=== PATIENT | female | born 1960 | race Caucasian/White ===

== ENCOUNTER 2018-11-23 14:31 | Observation (INO) | payer MEDICAID, SELFPAY ==
[2018-11-23] VITALS (8 sets, daily range): BP systolic 115–139; BP diastolic 65–83; PULSE 70–89; RESP 16–18; TEMP 36.4–36.8; O2SAT 96–98; BMI 24.3
--- NOTE | 2018-11-23 14:56 | RAD_ITS ---
STUDY: X-RAY CHEST REASON FOR EXAM: Female, 58 years old. Chest pain TECHNIQUE: Frontal view of the chest COMPARISON: 03/05/2016 FINDINGS: There are stable calcified granulomata are noted in the lungs. The lungs are otherwise clear. There are no pleural effusions. There is no pneumothorax. The heart is normal in size. The visualized osseous structures are within normal limits. RAD/Chest 1 View (Portable) IMPRESSION: No acute thoracic pathology. Electronically Signed: Eleuterio Rodney, at 15:25 EDT Tel , Service support ,
--- NOTE | 2018-11-23 14:56 | EKG12_ITS ---
Test Reason : CP Blood Pressure : / mmHG Vent. Rate : 082 BPM Atrial Rate : 082 BPM P-R Int : 152 ms QRS Dur : 076 ms QT Int : 378 ms P-R-T Axes : 058 023 033 degrees QTc Int : 441 ms Normal sinus rhythm Normal ECG Confirmed by JESÚS CHOW, MANUEL ([id number]), proposal editor SERGIO BERUMEN ([id number]) on 11/25/2018 12:24:48 PM Referred By: GONZALO/WILFRED Confirmed By:MANUEL ESPINOSA MD
--- NOTE | 2018-11-23 15:05 | ED.VISSUMM ---
- ER Visit Summary Date of Service: 11/23/18 Chief Complaint: Chest pain History of Present Illness: The patient is a 58 F with chest pain. This has been intermittent over the past 2 weeks. Nothing seems to bring it on or make it worse. It feels like a heaviness. It is located under her left breast and radiates to her left shoulder. She felt lightheaded today. Patient denies any history of this. She does have a history of high cholesterol and smoking. She has a family history of GA and peripheral arterial disease with stents. She never had any cardiac testing including stress testing. Physical Examination: Afebrile and vital signs unremarkable. Patient alert and oriented. No acute distress. Heart regular rate and rhythm. Lungs clear. Abdomen soft. Extremities nontender. Skin normal. Test Results: EKG shows sinus rhythm rate 82. No sign of acute ischemia or infarction pattern. Chest x-ray and blood work are pending. Emergency Department Course and Treatment: Patient presents with pleuritic chest pain. Low risk for ACS and PE. EKG unremarkable. She was placed on a monitor. Treated with aspirin. Blood work and x-ray pending. X-ray showed nothing acute. CBC, metabolic panel, troponin, d-dimer all normal. On reevaluation, patient is stable. She has a heart score of 4. I am recommending observation and will contact the hospitalist. Treatment Plan: As above Disposition: Observation to PCU Impression: 1. Chest pain This note was generated with [employer] dictation software. It may contain incorrect words, spelling, and punctuation that were not noted in review of the chart prior to signing ED Disposition - Plan for ED Patient: Referrals: Angel Saab III, MD [Primary Care Provider] -
[2018-11-23 15:06] LABS: Absolute Lymphocyte Count 2.06 X10^3/uL (0.83-4.51); Absolute Neutrophil Count 2.8 X10^3/uL (2.0-7.7); Basophil# 0.02 X10^3/uL; Basophil% 0.4 % (0-1); Eosinophil# 0.11 X10^3/uL; Hematocrit 39.1 % (37-47); Hemoglobin 13.3 g/dL (12.0-15.0); Lymphocyte # 2.06 X10^3/ul (4.0); Mean Corpuscular Hgb 31.4 pg (27.0-32.0); Mean Corpuscular Volume 92.4 fL (81-99); Mean Platelet Vol. 9.5 fl (6.2-12.0); Monocyte% 10.8 % (0-10); NRBC Flagged by Analyzer 0 % (0-5); Neutrophil # 2.77 X10^3/uL (2.7-7.7); Neutrophil % 49.6 % (47-70); Platelet Count 188 K/mm3 (150-450); RBC Distribution Width CV 11.4 % (11.6-14.6); RBC Distribution Width SD 38.6 fl (35.1-43.9); Red Blood Count 4.23 M/mm3 (4.2-5.4); White Blood Count 5.6 K/mm3 (4.4-11.0)
[2018-11-23] MEDS: Aspirin 81 MG TAB.CHEW 324 MG PO (15:08)
[2018-11-23 15:24] LABS: Anion Gap 5 (5-15); BUN 12 mg/dL (7-18); BUN/Creat Ratio 13.5 RATIO (10-20); Chloride 106 mmol/L (98-107); Creatinine, Serum 0.89 mg/dL (0.55-1.02); EST Glomerular Filtration Rate 69 mL/min (>60); Est Glom Filt Rate - Afr Amer 84 mL/min (>60); Estimated Creatinine Clearance 62.93 ml/min; Glucose 99 mg/dL (74-106); Potassium 3.5 mmol/L (3.5-5.1); Sodium Level 140 mmol/L (136-145)
--- NOTE | 2018-11-23 15:46 | HP.PCM_ITS ---
Problem List (1) Chest pain Status: Acute Qualifiers: Chest pain type: unspecified Qualified Code(s): R07.9 - Chest pain, unspecified (2) Anxiety and depression Status: Chronic (3) GERD (gastroesophageal reflux disease) Status: Chronic Qualifiers: Esophagitis presence: esophagitis presence not specified Qualified Code(s): K21.9 - Gastro-esophageal reflux disease without esophagitis (4) Hiatal hernia Status: Chronic History of Present Illness Date of Admission: 11/23/18 Chief Complaint: Chest pain - 2 weeks The patient is a 58 year old F with past medical history of anxiety/depression, hiatal hernia/GERD who comes in with a 2-week history of chest pain. She describes the chest pain as intermittent, stabbing, starts from the left side. She denied any nausea or vomiting or palpitations or leg swelling or orthopnea or PND. Her pain is worse with exertion and relieved at rest. But today it got worse even at rest, and had persistent lightheadedness and that made her to come to the ED. Vitals in the ED showed temperature of 98.2F, heart rate 89, blood pressure 139/83, respiratory rate was 16, SPO2 was 97% on room air. Her admitting blood work was unremarkable. Troponins were negative. HbA1c was 5.2. EKG shows normal sinus rhythm with no ST-T changes. Her admitting chest x-ray showed no acute cardiopulmonary process. 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 Lives: Spouse/ Significant Other Smoking Status: Current every day smoker Tobacco Use: Cigarettes - less than 1/2 pack every 3 days Alcohol: None Drugs: None - *Family History Maternal History Items: Stroke Paternal History Items: Heart Disease - of NH Sibling History Items: - - PAD in legs and carotids Review of Systems Constitutional: Denies: Anorexia, Chills, Fever, Malaise, Weakness, Weight Change Eyes: Denies: Blurred vision, Cataracts, Conjunctivae Inflammation, Double vision, Pain, Redness, Vision Change HEENT: Denies: Difficulty Hearing, Difficulty Swallowing, Head Aches, Hearing Changes, Sinus Congestion, Sinus Drainage, Sore Throat Cardiovascular: Reports: Chest Pain, Light Headedness. Denies: Claudication, Orthopnea, Palpitations Respiratory: Denies: Cough, Shortness of breath at rest, Shortness of breath upon exertion, Sputum production Gastrointestinal: Denies: Abdominal Pain, Hematemesis, Hematochezia, Nausea, Vomiting Genitourinary: Denies: Dysuria Musculoskeletal: Denies: Joint Pain, Joint stiffness, Joint swelling, Joint Tenderness Skin: Denies: Rash, Wounds Neurological: Denies: Difficulty swallowing, Focal weakness, Numbness, Tingling Psychiatric: Denies: Anxiety, Depression, Homicidal Ideations, Suicidal Ideations Endocrine: Denies: Hx of Irradiation Hematologic/ Lymphatic: Denies: Easy Bruising, Easy Bleeding VTE Information - Inpt Only VTE Present on Admission: No VTE Pharm Prophylaxis ordered?: Yes Patient Problems: Active and Suspected Problems Chest pain (Acute) - Physical Exam General: Alert, Oriented x3, Cooperative, No apparent distress HEENT: Atraumatic, PERRLA, EOMI, Normocephalic Oral: Dry Mucosa Neck: Supple, No JVD, Negative Carotid Bruits Lungs: Clear to auscultation, Normal air movement Cardiovascular: Regular rate, Regular Rhythm, Normal S1, Normal S2, No murmurs Abdomen: Bowel Sounds Present, Soft, Non Tender, Non-Distended, No Hepato- splenomegaly Extremities: No edema Skin: No rashes, No breakdown Musculoskeletal: No Tenderness to Palpation of Joints or Extremities Lymphatic: No Cervical, Supraclavicular, or Inguinal Adenopathy Neurological: Cranial nerves II-XII grossly intact, Neuro grossly intact Psych/Mental Status: Normal Affect, Appropriate Vital Signs Temp Pulse Resp BP Pulse Ox 98.2 F 89 16 139/83 H 97 11/23/18 14:31 11/23/18 14:31 11/23/18 14:31 11/23/18 14:31 11/23/18 14:31 Oxygen Delivery Method Room Air Weight: 68.4 kg Body Mass Index (BMI) 24.3 Laboratory Tests Past 24 Hrs 11/23/18 11/23/18 11/23/18 15:00 15:00 15:00 WBC 5.6 RBC 4.23 Hgb 13.3 Hct 39.1 MCV 92.4 MCH 31.4 MCHC 34.0 RDW Std Deviation 38.6 RDW Coeff of Glenys 11.4 L Plt Count 188 MPV 9.5 Immature Gran % (Auto) 0.200 Neut % (Auto) 49.6 Lymph % (Auto) 37.0 [place] % (Auto) 10.8 H Eos % (Auto) 2.0 Baso % (Auto) 0.4 Absolute Neuts (auto) 2.8 Absolute Lymphs (auto) 2.06 Nucleated RBC % 0 D-Dimer Quant (PE/DVT) 0.30 Sodium 140 Potassium 3.5 Chloride 106 Carbon Dioxide 29.0 Anion Gap 5 BUN 12 Creatinine 0.89 Estim Creat Clear Calc 62.93 Est GFR (MDRD) Af Amer 84 Est GFR (MDRD) Non-Af 69 BUN/Creatinine Ratio 13.5 Glucose 99 Calcium 9.0 Troponin I < 0.015 Assessment/Plan All Active Problems Chest pain (Acute) 58 year old F with past medical history of anxiety/depression, hiatal hernia/GERD who comes in with a 2-week history of chest pain. 1. Chest pain, atypical, positive family history of atherosclerotic cardiovascular events - NH/PAD?carotid stenosis Patient is a current smoker also EKG no acute ST-T changes, stable vitals, troponins x1 is negative Plan: Admit to PCU, monitor on telemetry, vital signs per protocol, trend troponins, lipid profile in a.m., Stress echo in a.m. 2. Anxiety/depression, continue on Celexa 3. Hiatal hernia/GERD, on PPI 4. DVT PPx- early ambulation recommended. Code Visit OBSV E&M: 56177 Initial observation care L2
[2018-11-23 16:50] LABS: Hemoglobin A1c 5.2 % (4.2-6.3)
--- NOTE | 2018-11-23 16:51 | EKG12_ITS ---
Test Reason : CP ADMISSION Blood Pressure : / mmHG Vent. Rate : 067 BPM Atrial Rate : 067 BPM P-R Int : 152 ms QRS Dur : 076 ms QT Int : 404 ms P-R-T Axes : 053 025 027 degrees QTc Int : 426 ms Normal sinus rhythm Normal ECG Confirmed by FATOUMATA CHOW, JAXSON ([id number]), editor map SERGIO BERUMEN ([id number]) on 12/01/2018 10:50:43 AM Referred By: LUBA Confirmed By:WADE HAM MD
[2018-11-24 02:55] VITALS: BP 118/77; PULSE 72; RESP 16; TEMP 36.6; O2SAT 97
[2018-11-24 04:00] VITALS: PULSE 73
[2018-11-24 05:06] VITALS: BP 121/80; PULSE 80; RESP 16; TEMP 36.7; O2SAT 98
[2018-11-24] MEDS: Aspirin E.C. 81 MG Tablet PO (05:12)
[2018-11-24] MEDS: 0.9% NaCl Peripheral Flush Adult/Peds IV (05:12)
[2018-11-24 05:44] LABS: Absolute Lymphocyte Count 1.93 X10^3/uL (0.83-4.51); Absolute Neutrophil Count 1.9 X10^3/uL (2.0-7.7); Basophil# 0.03 X10^3/uL; Basophil% 0.7 % (0-1); Eosinophil# 0.13 X10^3/uL; Eosinophils% 2.9 % (0-5); Hematocrit 40.7 % (37-47); Hemoglobin 13.5 g/dL (12.0-15.0); Lymphocyte # 1.93 X10^3/ul (4.0); Lymphocyte % 43.1 % (19-41); Mean Corp Hgb Conc 33.2 g/dL (32-36); Mean Corpuscular Volume 93.6 fL (81-99); Mean Platelet Vol. 9.8 fl (6.2-12.0); Monocyte# 0.48 X10^3/uL; Monocyte% 10.7 % (0-10); NRBC Flagged by Analyzer 0 % (0-5); Neutrophil # 1.91 X10^3/uL (2.7-7.7); Neutrophil % 42.6 % (47-70); Platelet Count 184 K/mm3 (150-450); RBC Distribution Width CV 11.5 % (11.6-14.6); RBC Distribution Width SD 39.7 fl (35.1-43.9); Red Blood Count 4.35 M/mm3 (4.2-5.4); White Blood Count 4.5 K/mm3 (4.4-11.0)
--- NOTE | 2018-11-24 05:55 | EKG12_ITS ---
Test Reason : AM EKG Blood Pressure : / mmHG Vent. Rate : 071 BPM Atrial Rate : 071 BPM P-R Int : 146 ms QRS Dur : 074 ms QT Int : 398 ms P-R-T Axes : 063 033 040 degrees QTc Int : 432 ms Normal sinus rhythm Normal ECG When compared with ECG of 23-NOV-2018 16:55, MANUAL COMPARISON REQUIRED, DATA IS UNCONFIRMED Confirmed by FATOUMATA CHOW, JAXSON ([id number]), newspaper or periodical editor SERGIO BERUMEN ([id number]) on 12/01/2018 10:51:24 AM Referred By: DR VERDUZCO Confirmed By:WADE HAM MD
[2018-11-24 06:09] LABS: Anion Gap 5 (5-15); BUN 15 mg/dL (7-18); BUN/Creat Ratio 18.7 RATIO (10-20); Calcium,Total 8.7 mg/dL (8.5-10.1); Chloride 107 mmol/L (98-107); Cholesterol 222 mg/dL (200); EST Glomerular Filtration Rate 77 mL/min (>60); Est Glom Filt Rate - Afr Amer 94 mL/min (>60); Estimated Creatinine Clearance 70.01 ml/min; Glucose 107 mg/dL (74-106); High Density Lipoprotein 49 mg/dL; Potassium 4.3 mmol/L (3.5-5.1); Sodium Level 140 mmol/L (136-145); Triglycerides 106 mg/dL; Very Low Density Lipoprotein 21 mg/dL (5-40)
[2018-11-24 07:30] VITALS: PULSE 81
--- NOTE | 2018-11-24 07:31 | NURSING ---
pt leaving unit for stress echo.
--- NOTE | 2018-11-24 08:00 | STEWCON_ITS ---
Reason For Study: CHEST PAIN Stress Results Protocol: Stress Echocardiogram Maximum Predicted HR: 160 bpm Target HR: 136 bpm % Maximum Predicted HR: 98 % DurationHeart Rate Stage (mm:ss) (bpm) BP Comment BASELINE 76 120/782CC DILUTED DEFINITY USED KEO PROTOCOL- STAGE 1 3:00 109 134/80NO SX KEO PROTOCOL- STAGE 2 3:00 126 138/82NO SX KEO PROTOCOL- STAGE 3 3:00 157 140/80SL SOB, SL FATIGUE RECOVERY 86 124/74 Stress Duration: 9:00 mm:ss Maximum Stress HR: 157 bpm METS: 10 Baseline Echocardiogram Findings Stress Echo Wall motion Data Resting WM Intermediate WM Stress WM Resting Wall Motion Wall Motion Stress All segments Normal. All segments Hyperkinetic. Ejection Fraction 60 %. Ejection Fraction 75 %. Stress Results Heart rate response: Appropriate Blood pressure response: Normal resting BP-appropriate response Arrhythmias: None Functional capacity: Good Stopped secondary to: Dyspnea/fatigue. EKG Data ECG Baseline: NSR. ECG Stress: No Obvioius ECG Changes. Symptoms with Stress No complaint of chest discomfort during exercise or recovery. Interpretation Summary Negative (Adequate) Stress Echocardiogram Ordering Physician: Darian^^^ Referring Physician: AURORA Saab M.D. Performed By: Ivana Cummings RDCS
[2018-11-24] MEDS: Pantoprazole Sodium 20 MG Tablet PO (08:48)
[2018-11-24] MEDS: Citalopram 20 MG Tablet PO (08:49)
[2018-11-24 10:00] VITALS: BP 117/69; PULSE 80; RESP 14; TEMP 36.7; O2SAT 97
--- NOTE | 2018-11-24 10:47 | PCM.DC ---
- Discharge Diagnoses Current Active Problems: Current Active and Chronic Problems Chest pain (Acute) Anxiety and depression (Chronic) GERD (gastroesophageal reflux disease) (Chronic) Hiatal hernia (Chronic) Reason(s) for Visit for Discharge Instructions: Chest pain You will use the following diet at home:: Cardiac Your food should be the consistency of: Regular Your liquids should be the consistency of: Regular/Thin Discharge Activity: Return to Normal Activity Additional Instructions: You are advised to quit smoking. Continue to follow a low fat, low salt diet. Continue to remain active. Follow-up with your primary care doctor within 1-2 weeks. You will need repeat cholesterol testing in 4-6 weeks. Allergies/Adverse Reactions: Allergies Sulfa (Sulfonamide Antibiotics) Adverse Reaction (Verified 11/23/18 14:33) Nausea/Vom/Diarrhea Medications to take at Discharge Citalopram [Celexa] 20 mg PO DAILY 03/05/16 Omeprazole 20 mg PO DAILY 11/23/18 Atorvastatin Calcium 40 mg PO QHS 30 Days #30 tab 11/24/18 The following prescriptions were given: Atorvastatin Calcium 40 mg PO QHS 30 Days #30 tab Transmission Status: Pending to [id number] Primary Care Physician: Angel Saab III, MD [Primary Care Provider] - Please follow up with your Primary Care Physician in: within 1-2 weeks Test Results: Test results from this visit will be discussed in further detail at your follow-up appointment, if applicable. Proposed Discharge Date: 11/24/18
--- NOTE | 2018-11-24 10:49 | DS.PCM_ITS ---
Discharge Date and Diagnosis Date of Admission: 11/23/18 Date of Discharge: 11/24/18 - Primary Discharge Diagnosis Active and Suspected Problems Chest pain (Acute), atypical Hyperlipidemia - Secondary Discharge Diagnosis Chronic Problems Anxiety and depression (Chronic) GERD (gastroesophageal reflux disease) (Chronic) Hiatal hernia (Chronic) Hospital Course and Treatment Imaging Results: 11/24/18 08:00 Stress Test Echo W/Contrast [ECHO] Routine Clinical Impression(s) from Imaging Studies Chest X-Ray 11/23/18 14:56 IMPRESSION: No acute thoracic pathology. Electronically Signed: Eleuterio Rodney, at 15:25 EDT Tel , Service support , None Operations: None Procedures: Stress test - Stress ECHO Summary of Care Provided: 58 year old F with past medical history of anxiety/depression, hiatal hernia/GERD who comes in with a 2-week history of chest pain. Her chest discomfort was described as occurring at different times. This was associated with some lightheadedness. Admitting EKG showed no acute ST-T changes. She was admitted to telemetry floor. No acute events overnight. Troponins were cycled and were negative. She underwent stress echo that was unremarkable. Her lipid profile was elevated and she was started on atorvastatin. Follow-up with your primary care doctor in 1 to 2 weeks. She will get repeat lipid profile testing done in 4 to 6 weeks. Also advised to quit smoking. Subjective: The day of discharge, patient was seen and examined. Denied any new complaints. She feels improved. Objective: Physical Exam General: Alert, Oriented x3, Cooperative, No apparent distress HEENT: Atraumatic, PERRLA, EOMI, Normocephalic Oral: Dry Mucosa Neck: Supple, No JVD, Negative Carotid Bruits Lungs: Clear to auscultation, Normal air movement Cardiovascular: Regular rate, Regular Rhythm, Normal S1, Normal S2, No murmurs Abdomen: Bowel Sounds Present, Soft, Non Tender, Non-Distended, No Hepato- splenomegaly Extremities: No edema Skin: No rashes, No breakdown Musculoskeletal: No Tenderness to Palpation of Joints or Extremities Lymphatic: No Cervical, Supraclavicular, or Inguinal Adenopathy Neurological: Cranial nerves II-XII grossly intact, Neuro grossly intact Psych/Mental Status: Normal Affect, Appropriate - Physical Exam Vital Signs Temp Pulse Resp BP Pulse Ox 98.0 F 80 14 117/69 97 11/24/18 10:00 11/24/18 10:00 11/24/18 10:00 11/24/18 10:00 11/24/18 10:00 Oxygen Delivery Method Room Air Weight: 68.5 kg Body Mass Index (BMI) 24.3 Intake and Output for Last 24 Hours 11/22/18 11/23/18 11/24/18 23:59 23:59 23:59 Intake Total 324 / 324 Balance 324 / 324 Laboratory Tests Past 24 Hrs 11/23/18 11/23/18 11/23/18 15:00 15:00 15:00 WBC 5.6 RBC 4.23 Hgb 13.3 Hct 39.1 MCV 92.4 MCH 31.4 MCHC 34.0 RDW Std Deviation 38.6 RDW Coeff of Glenys 11.4 L Plt Count 188 MPV 9.5 Immature Gran % (Auto) 0.200 Neut % (Auto) 49.6 Lymph % (Auto) 37.0 [place] % (Auto) 10.8 H Eos % (Auto) 2.0 Baso % (Auto) 0.4 Absolute Neuts (auto) 2.8 Absolute Lymphs (auto) 2.06 Nucleated RBC % 0 D-Dimer Quant (PE/DVT) 0.30 Sodium 140 Potassium 3.5 Chloride 106 Carbon Dioxide 29.0 Anion Gap 5 BUN 12 Creatinine 0.89 Estim Creat Clear Calc 62.93 Est GFR (MDRD) Af Amer 84 Est GFR (MDRD) Non-Af 69 BUN/Creatinine Ratio 13.5 Glucose 99 Hemoglobin A1c Calcium 9.0 Troponin I < 0.015 Triglycerides Cholesterol LDL Cholesterol VLDL Cholesterol HDL Cholesterol 11/23/18 11/23/18 11/23/18 15:00 17:43 20:44 WBC RBC Hgb Hct MCV MCH MCHC RDW Std Deviation RDW Coeff of Glenys Plt Count MPV Immature Gran % (Auto) Neut % (Auto) Lymph % (Auto) [place] % (Auto) Eos % (Auto) Baso % (Auto) Absolute Neuts (auto) Absolute Lymphs (auto) Nucleated RBC % D-Dimer Quant (PE/DVT) Sodium Potassium Chloride Carbon Dioxide Anion Gap BUN Creatinine Estim Creat Clear Calc Est GFR (MDRD) Af Amer Est GFR (MDRD) Non-Af BUN/Creatinine Ratio Glucose Hemoglobin A1c 5.2 Calcium Troponin I < 0.015 < 0.015 Triglycerides Cholesterol LDL Cholesterol VLDL Cholesterol HDL Cholesterol 11/24/18 11/24/18 05:20 05:20 WBC 4.5 RBC 4.35 Hgb 13.5 Hct 40.7 MCV 93.6 MCH 31.0 MCHC 33.2 RDW Std Deviation 39.7 RDW Coeff of Glenys 11.5 L Plt Count 184 MPV 9.8 Immature Gran % (Auto) 0.000 Neut % (Auto) 42.6 L Lymph % (Auto) 43.1 H [place] % (Auto) 10.7 H Eos % (Auto) 2.9 Baso % (Auto) 0.7 Absolute Neuts (auto) 1.9 L Absolute Lymphs (auto) 1.93 Nucleated RBC % 0 D-Dimer Quant (PE/DVT) Sodium 140 Potassium 4.3 Chloride 107 Carbon Dioxide 28.0 Anion Gap 5 BUN 15 Creatinine 0.80 Estim Creat Clear Calc 70.01 Est GFR (MDRD) Af Amer 94 Est GFR (MDRD) Non-Af 77 BUN/Creatinine Ratio 18.7 Glucose 107 H Hemoglobin A1c Calcium 8.7 Troponin I Triglycerides 106 Cholesterol 222 H LDL Cholesterol 152 H VLDL Cholesterol 21 HDL Cholesterol 49 Discharge Diet: Low fat/ Low Cholesterol, 2000 mg Sodium Diet Discharge Activity: Return to Normal Activity Home Medications: Medications to take at Discharge Citalopram [Celexa] 20 mg PO DAILY 03/05/16 Omeprazole 20 mg PO DAILY 11/23/18 Atorvastatin Calcium 40 mg PO QHS 30 Days #30 tab 11/24/18 Following Prescrptions Were Given to Patient: Atorvastatin Calcium 40 mg PO QHS 30 Days #30 tab Transmission Status: Received by [id number] Primary Care Physician: Angel Saab III, MD [Primary Care Provider] - Please follow up with your Primary Care Physician in: within 1-2 weeks Disposition: Home Minutes spent on discharge:: 40 Patient Condition:: Stable Medical Necessity - Tobacco Use Smoking Status: Current every day smoker Tobacco Use: Cigarettes - less than 1/2 pack every 3 days Meaningful Use Info Meaningful Use Diagnoses (Choose all that apply): None applicable Code Visit OBSV E&M: 49143 Observation care discharge
== END 2018-11-24 10:41 | disposition home or self-care (01) ==
LOC: ED 15:31 → PCU 16:05
PROVIDERS: Admitting Provider Internal Medicine; Emergency Provider Emergency Medicine; Family Provider Family Medicine; PCP Family Medicine; Visit Provider Internal Medicine
DX: R07.89 Other chest pain (principal); R42 Dizziness and giddiness; F41.9 Anxiety disorder, unspecified; F32.9 Major depressive disorder, single episode, unspecified; K21.9 Gastro-esophageal reflux disease without esophagitis; E78.5 Hyperlipidemia, unspecified; K44.9 Diaphragmatic hernia without obstruction or gangrene; F17.210 Nicotine dependence, cigarettes, uncomplicated; Z79.899 Other long term (current) drug therapy; Z82.49 Family history of ischemic heart disease and other diseases of the circulatory system
CPT/HCPCS: 36415; 71045; 80048; 80061; 83036; 84484; 85025; 85379; 93005; 93017; 93350; 99218; 99285; 99406; Q9957; A4216; C8928; G0378

== ENCOUNTER 2019-03-30 13:57 | Inpatient (IN) | payer MEDICAID, SELFPAY ==
[2018-11-23 16:26] VITALS: BMI 24.3
[2019-03-30] VITALS (7 sets, daily range): BP systolic 109–153; BP diastolic 62–99; PULSE 90–122; RESP 18; TEMP 36.9–37.8; O2SAT 92–95; BMI 25.4; BMI 25.3
--- NOTE | 2019-03-30 14:15 | RAD_ITS ---
STUDY: X-RAY CHEST REASON FOR EXAM: Female, 58 years old. Cough. Fever. TECHNIQUE: Frontal view of the chest COMPARISON: 11/23/2018 FINDINGS: There is airspace opacity in the right lower lobe which is consistent with an infiltrate. The lungs are otherwise clear. There are no pleural effusions. There is no pneumothorax. The heart is normal in size. The visualized osseous structures are within normal limits. RAD/Chest PA and Lateral IMPRESSION: Right lower lobe infiltrate. Electronically Signed: Eleuterio Rodney, at 16:31 EST Tel , Service support ,
[2019-03-30] MEDS: 0.9% Normal Saline 1,000 ML 1000 ML IV (15:08)
[2019-03-30] MEDS: Ondansetron 4 MG/2 ML Vial IV (15:08)
[2019-03-30] MEDS: Ketorolac 15 MG/ML Vial IV (15:08)
[2019-03-30 15:22] LABS: Absolute Lymphocyte Count 0.45 X10^3/uL (0.83-4.51); Absolute Neutrophil Count 5.2 X10^3/uL (2.0-7.7); Eosinophils% 1.6 % (0-5); Hematocrit 40.1 % (37-47); Hemoglobin 13.5 g/dL (12.0-15.0); Lymphocyte # 0.45 X10^3/ul (4.0); Lymphocyte % 7.4 % (19-41); Mean Corp Hgb Conc 33.7 g/dL (32-36); Mean Corpuscular Hgb 30.2 pg (27.0-32.0); Mean Corpuscular Volume 89.7 fL (81-99); Mean Platelet Vol. 9.8 fl (6.2-12.0); Monocyte# 0.29 X10^3/uL; Monocyte% 4.8 % (0-10); NRBC Flagged by Analyzer 0 % (0-5); Neutrophil # 5.24 X10^3/uL (2.7-7.7); Neutrophil % 85.9 % (47-70); POSITIVE DIFFERENTIAL YES; POSITIVE MORPHOLOGY YES; Platelet Count 105 K/mm3 (150-450); RBC Distribution Width CV 11.7 % (11.6-14.6); RBC Distribution Width SD 38.5 fl (35.1-43.9); Red Blood Count 4.47 M/mm3 (4.2-5.4); White Blood Count 6.1 K/mm3 (4.4-11.0)
[2019-03-30 15:25] LABS: Differential Indicated SCAN CRITERIA MET
[2019-03-30 15:41] LABS: Anion Gap 8 (5-15); BUN 11 mg/dL (7-18); BUN/Creat Ratio 12.9 RATIO (10-20); Calcium,Total 8.8 mg/dL (8.5-10.1); Chloride 105 mmol/L (98-107); Creatinine, Serum 0.85 mg/dL (0.55-1.02); EST Glomerular Filtration Rate 72 mL/min (>60); Est Glom Filt Rate - Afr Amer 87 mL/min (>60); Estimated Creatinine Clearance 63.33 ml/min; Glucose 110 mg/dL (74-106); Potassium 3.5 mmol/L (3.5-5.1); Sodium Level 137 mmol/L (136-145)
--- NOTE | 2019-03-30 15:47 | NURSING ---
+ influenza B reported to Dr. Goncalves
[2019-03-30 15:52] LABS: Differential Comment SCANNED
--- NOTE | 2019-03-30 16:21 | ED.VISSUMM ---
- ER Visit Summary Date of Service: 03/30/19 Chief Complaint: [Chills, fever, cough] History of Present Illness: The patient is a 58 F [presents to the emergency department 6-day history of cough and fever and feeling short of breath. Patient's had had vomiting that started today. Patient recently diagnosed with an abscessed tooth and started on amoxicillin today which she attempted to take for the first time and then vomited. Patient has no energy and feels fatigued. 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 She has history of cholesterol.] Physical Examination: [HEENT-PERRLA, EOMI. Cranial nerves II through XII grossly intact. TMs clear. Mucous membranes moist. No adenopathy. Cardiovascular-regular and tachycardic. No murmurs auscultated. Lungs-clear to auscultation, chest wall stable without crepitus or subcu emphysema Abdomen-normoactive bowel sounds, soft, nontender, no rebound or rigidity, no peritoneal signs. Extremities-intact ?4, normal range of motion, normal pulses, atraumatic] Test Results: [CBC with differential showing a 6.1, hemoglobin 13.5, hematocrit 40, plates 105. Chemistries unremarkable. Influenza screen was positive for influenza B. Chest x-ray on my interpretation shows a right lower lobe infiltrate.] Emergency Department Course and Treatment: [Patient written for a liter normal saline fluid bolus. Patient given Toradol 50 mg IV. Patient started on Rocephin and Zithromax.] Treatment Plan: [Admit] Disposition: [Admit] Impression: [Influenza Pneumonia Sepsis] This note was generated with [employer] dictation software. It may contain incorrect words, spelling, and punctuation that were not noted in review of the chart prior to signing ED Disposition - Plan for ED Patient: Referrals: Angel Saab III, MD [Primary Care Provider] -
--- NOTE | 2019-03-30 16:43 | PCM.HP.STD ---
<Sylwia Raza - Last Filed: 03/30/19 16:54> Problem List (1) Chest pain Status: Resolved (2) Anxiety and depression Status: Chronic (3) GERD (gastroesophageal reflux disease) Status: Chronic (4) Hiatal hernia Status: Chronic History of Present Illness Date of Admission: 03/30/19 Chief Complaint: Cough, fever, chills, nausea/vomiting The patient is a 58 year old F who presents emergency room due to general illness with shortness of breath, cough, fever, chills, nausea and vomiting. Patient reports this is been ongoing for 1 week. She reports her grandchildren were diagnosed with influenza B last week. She was seen the dentist today and started on amoxicillin for dental abscess however she has not been able to keep down medication due to nausea and vomiting. She was found to be positive for influenza B in the emergency room. Patient states she is scared to go home because she lives alone and is having trouble breathing. Her other past medical history includes anxiety, depression, GERD, hyperlipidemia. 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 Denies: Sputum production, Wheezing Gastrointestinal: Reports: Nausea, Vomiting. Denies: Abdominal Pain, Constipation, Diarrhea Genitourinary: Denies: Dysuria Musculoskeletal: Denies: Joint Pain, Joint Tenderness Skin: Denies: Rash, Wounds Neurological: Denies: Numbness, Tingling, Focal weakness Psychiatric: Reports: Anxiety, Depression Hematologic/ Lymphatic: Denies: Easy Bruising, Easy Bleeding VTE Information - Inpt Only VTE Present on Admission: No VTE Mechan Device Prophylaxis: None VTE Pharm Prophylaxis ordered?: No Reason prophylaxis not ordered:: Treatment Not Indicated - Physical Exam Vitals/I&O's: Vital Signs Temp Pulse Resp BP Pulse Ox 99.7 F H 122 H 18 153/99 H 95 03/30/19 13:57 03/30/19 13:57 03/30/19 13:57 03/30/19 13:57 03/30/19 13:57 Oxygen Delivery Method Room Air Weight: 152 lb 8.958 oz Body Mass Index (BMI) 25.4 General: Alert, Oriented x3, Cooperative HEENT: Atraumatic, PERRLA, EOMI, Normocephalic Oral: Dry Mucosa Neck: Supple, No JVD, Negative Carotid Bruits Lungs: Clear to auscultation, Diminished Cardiovascular: Regular Rhythm, Normal S1, Normal S2, No murmurs, Tachycardic Abdomen: Bowel Sounds Present, Soft, Non Tender, Non-Distended Extremities: No clubbing, No cyanosis, No edema, Capillary Refill Less than 3 Seconds Skin: No rashes, No breakdown Musculoskeletal: No Tenderness to Palpation of Joints or Extremities Neurological: Cranial nerves II-XII grossly intact, Neuro grossly intact Psych/Mental Status: Normal Affect, Appropriate Microbiology Past 72 Hours 03/30/19 15:11 Mucosa - Nasopharyngeal Influenza Types A,B Direct FA (PARISH) - Final Influenzae B Laboratory Results 03/30/19 15:00: WBC 6.1, RBC 4.47, Hgb 13.5, Hct 40.1, MCV 89.7, MCH 30.2, MCHC 33.7, RDW Std Deviation 38.5, RDW Coeff of Glen[place] 11.7, Plt Count 105 L, MPV 9.8, Immature Gran % (Auto) 0.300, Neut % (Auto) 85.9 H, Lymph % (Auto) 7.4 L, [place] % (Auto) 4.8, Eos % (Auto) 1.6, Baso % (Auto) 0.0, Absolute Neuts (auto) 5.2, Absolute Lymphs (auto) 0.45 L, Nucleated RBC % 0, Differential Comment SCANNED 03/30/19 15:00: Sodium 137, Potassium 3.5, Chloride 105, Carbon Dioxide 24.0, Anion Gap 8, BUN 11, Creatinine 0.85, Estim Creat Clear Calc 63.33, Est GFR (MDRD) Af Amer 87, Est GFR (MDRD) Non-Af 72, BUN/Creatinine Ratio 12.9, Glucose 110 H, Calcium 8.8 Current Medications Azithromycin 500 mg/ Dextrose 255 mls @ 250 mls/hr IV X1 ONE Stop: 03/30/19 17:19 Ceftriaxone Sodium (Rocephin) 1 gm in 50 mls @ 100 mls/hr IV X1 ONE Stop: 03/30/19 16:47 Assessment/Plan All Active Problems Chest pain (Resolved) 1. Acute influenza B with suspected post viral right lower lobe pneumonia-chest x-ray with right lower lobe infiltrate. Low-grade fever, 99.7 F. No leukocytosis. Oxygen stable on room air. Check urine for strep and Legionella. Sputum culture. IV azithromycin and IV Rocephin. IV fluids. Albuterol and DuoNeb aerosols. PRN antiemetics. Patient is out of the window for Tamiflu given onset of symptoms greater than 1 week. Continue supportive management. Patient did not meet sepsis criteria. 2. Hyperlipidemia-previously prescribed statin, unclear if patient is still taking. 3. GERD-continue PPI. 4. Anxiety/Depression-continue citalopram regimen. DVT prophylaxis- not indicated, low risk This patient was seen by CHAKA Martinez under the supervision of Dr. Flores. <Julisa Flores - Last Filed: 03/30/19 18:00> History of Present Illness The patient is a 58 year old F [] Past Medical History Allergies Sulfa (Sulfonamide Antibiotics) Adverse Reaction (Verified 11/23/18 14:33) Nausea/Vom/Diarrhea - Physical Exam Vitals/I&O's: Vital Signs Temp Pulse Resp BP Pulse Ox 99.4 F H 109 H 18 122/70 H 92 03/30/19 17:42 03/30/19 17:42 03/30/19 17:42 03/30/19 17:42 03/30/19 17:42 Oxygen Delivery Method Room Air Weight: 68.991 kg Body Mass Index (BMI) 25.3 Intake and Output for Last 24 Hours 03/28/19 03/29/19 03/30/19 23:59 23:59 23:59 Intake Total 1000 / 1000 Balance 1000 / 1000 Microbiology Past 72 Hours 03/30/19 15:11 Mucosa - Nasopharyngeal Influenza Types A,B Direct FA ([place]) - Final Influenzae B Laboratory Results 03/30/19 15:00: WBC 6.1, RBC 4.47, Hgb 13.5, Hct 40.1, MCV 89.7, MCH 30.2, MCHC 33.7, RDW Std Deviation 38.5, RDW Coeff of Glenys 11.7, Plt Count 105 L, MPV 9.8, Immature Gran % (Auto) 0.300, Neut % (Auto) 85.9 H, Lymph % (Auto) 7.4 L, [place] % (Auto) 4.8, Eos % (Auto) 1.6, Baso % (Auto) 0.0, Absolute Neuts (auto) 5.2, Absolute Lymphs (auto) 0.45 L, Nucleated RBC % 0, Differential Comment SCANNED 03/30/19 15:00: Sodium 137, Potassium 3.5, Chloride 105, Carbon Dioxide 24.0, Anion Gap 8, BUN 11, Creatinine 0.85, Estim Creat Clear Calc 63.33, Est GFR (MDRD) Af Amer 87, Est GFR (MDRD) Non-Af 72, BUN/Creatinine Ratio 12.9, Glucose 110 H, Calcium 8.8 03/30/19 16:35: Lactic Acid 1.6 Current Medications Acetaminophen (Tylenol) 650 mg PO Q6H PRN PRN PRN Reason: Pain Score 1-10/Temp > 100.7 F Al Hydroxide/Mg Hydroxide (Mylanta Ii) 30 ml PO Q6H PRN PRN PRN Reason: Gastric Burning Albuterol Sulfate (Ventolin Aerosols) 2.5 mg INHALATION Q2H PRN PRN Reason: SHORTNESS OF BREATH Albuterol/Ipratropium (Duoneb) 3 ml INHALATION Q4H.RT [facility] Citalopram Hydrobromide (Celexa) 20 mg PO DAILY [facility] Guaifenesin (Mucinex) 1,200 mg PO BID [facility] Heparin Sodium (Porcine) (Heparin Na) 5,000 unit SC Q8 [facility] Sodium Chloride () 1,000 mls @ 75 mls/hr IV .[id number] [facility] Stop: 03/31/19 06:46 Ceftriaxone Sodium 2 gm/ (Sodium Chloride) 50 mls @ 100 mls/hr IV Q24 [facility] Stop: 04/07/19 10:01 Azithromycin 500 mg/ Dextrose 255 mls @ 250 mls/hr IV Q24 [facility] Stop: 04/05/19 10:01 Ondansetron HCl (Zofran) 4 mg IV Q8H PRN PRN PRN Reason: NAUSEA/VOMITING Pantoprazole Sodium (Protonix) 20 mg PO DAILY [facility] Psyllium Hydrophilic Mucilloid (Metamucil) 1 packet PO DAILY PRN PRN PRN Reason: Constipation Sodium Chloride () 10 - 40 ml IV UD PRN PRN Reason: SALINE FLUSH Assessment/Plan This patient was seen in conjunction with Sylwia Raza. I have independently interviewed and examined the patient and reviewed pertinent historical, laboratory, and other data. I have reviewed her note and concur with her documentation CC: Nausea, vomiting, generalized malaise, shortness of breath -1 week HPI: 58-year-old female past medical history of anxiety/depression, GERD, hyperlipidemia who comes in with complaints of upper respiratory symptoms that started for 1 week. Her grandchildren were recently diagnosed with influenza B. She has generalized malaise, nausea and vomiting. She is also recently been diagnosed with dental abscess and is on amoxicillin. She has been unable to keep down her medication because of persistent nausea and vomiting. She feels very fatigued and is concerned that she lives alone plus she also complains of shortness of breath. PMHX: As listed above PSHx: History of 2 sections, tonsillectomy FHX: Mother had a stroke, father of an [place], siblings have PAD SHX: Continues to smoke, denies any alcohol or drug use Physical Exam: Vitals: Temperature is 99.7, heart rate is 122, blood pressure 133/99, respiratory rate 18, SPO2 was 95% on room air Gen: Looks in some discomfort, not pale, not jaundiced, only dehydrated CVS:HS I +II, regular, no murmurs RESP: Diminished at lung bases, few coarse crackles left base GI: BS present and normal, soft, nontender, no palpable organs EXT:No edema Labs: Unremarkable CBCD, CMP, lactic acid 1.6 Chest x-ray shows right lower lobe infiltrate ASSESSMENT: 1. Pneumonia, likely postviral 2. Acute influenza B 3. Hyperlipidemia 4. GERD 5. Anxiety/depression Plan: Continue on IV ceftriaxone and azithromycin patient is not candidate for Tamiflu Gentle hydration, symptomatic treatment Code Visit OBSV E&M: 93177 Initial observation care L2
[2019-03-30] MEDS: Ceftriaxone 1 GM/50 ML BAG IV (16:45)
[2019-03-30 17:47] LABS: Lactic Acid 1.6 mmol/L (0.4-1.9)
[2019-03-30] MEDS: Acetaminophen 325 MG Tablet 650 MG PO (18:18)
[2019-03-30] MEDS: 0.9% Normal Saline 1,000 ML 75 ML IV (18:23)
[2019-03-30] MEDS: Ipratropium/Albuterol Sulfate 3 ML AMPUL.NEB INHALATION ×2 (18:49→23:30)
[2019-03-30] MEDS: Benzonatate 100 MG Capsule PO ×2 (19:04→23:11)
[2019-03-30] MEDS: Heparin Injection (Vial) 5,000 UNIT/ML VIAL 5000 UNIT SC (21:58)
--- NOTE | 2019-03-30 22:24 | PCM.PN.BLA ---
Progress Note Reportedly patient cant swallow extended release Mucinex since it is too big; and it cant be crushed; stopped. Continue prn Rigoberto gaitan. STROKE Vital Signs/Narrative: Vital Signs Temp Pulse Resp BP Pulse Ox 03/30/19 22:01 98.4 F 90 18 109/62 94 03/30/19 18:44 93 03/30/19 18:26 100
[2019-03-31] VITALS (10 sets, daily range): BP systolic 105–118; BP diastolic 59–72; PULSE 80–92; RESP 16–20; TEMP 36.5–37.1; O2SAT 95–99
[2019-03-31] MEDS: Acetaminophen 325 MG Tablet 650 MG PO ×3 (04:00→18:38)
[2019-03-31] MEDS: Ondansetron 4 MG/2 ML Vial IV (04:06)
[2019-03-31] MEDS: 0.9% Saline Lock 10 ML Syringe IV ×3 (04:07→22:44)
[2019-03-31] MEDS: Heparin Injection (Vial) 5,000 UNIT/ML VIAL 5000 UNIT SC ×3 (05:29→22:41)
[2019-03-31 05:49] LABS: Absolute Lymphocyte Count 1.32 X10^3/uL (0.83-4.51); Absolute Neutrophil Count 9.7 X10^3/uL (2.0-7.7); Basophil# 0.01 X10^3/uL; Basophil% 0.1 % (0-1); Eosinophil# 0.01 X10^3/uL; Eosinophils% 0.1 % (0-5); Hematocrit 34.3 % (37-47); Hemoglobin 11.4 g/dL (12.0-15.0); Lymphocyte # 1.32 X10^3/ul (4.0); Lymphocyte % 11.5 % (19-41); Mean Corp Hgb Conc 33.2 g/dL (32-36); Mean Corpuscular Hgb 30.5 pg (27.0-32.0); Mean Corpuscular Volume 91.7 fL (81-99); Mean Platelet Vol. 10.2 fl (6.2-12.0); Monocyte# 0.35 X10^3/uL; Monocyte% 3.1 % (0-10); NRBC Flagged by Analyzer 0 % (0-5); Neutrophil # 9.69 X10^3/uL (2.7-7.7); Neutrophil % 84.7 % (47-70); POSITIVE COUNT YES; POSITIVE MORPHOLOGY YES; Platelet Count 95 K/mm3 (150-450); RBC Distribution Width CV 11.9 % (11.6-14.6); RBC Distribution Width SD 39.9 fl (35.1-43.9); Red Blood Count 3.74 M/mm3 (4.2-5.4); White Blood Count 11.4 K/mm3 (4.4-11.0)
[2019-03-31 05:51] LABS: Differential Indicated SCAN CRITERIA MET
[2019-03-31 06:16] LABS: AST(SGOT) 16 U/L (15-37); Alanine Aminotransfer ALT/SGPT 18 U/L (13-56); Alkaline Phosphatase 52 U/L (45-117); Anion Gap 4 (5-15); BUN 9 mg/dL (7-18); BUN/Creat Ratio 12.7 RATIO (10-20); Calcium,Total 8.1 mg/dL (8.5-10.1); Chloride 110 mmol/L (98-107); Creatinine, Serum 0.71 mg/dL (0.55-1.02); EST Glomerular Filtration Rate 90 mL/min (>60); Est Glom Filt Rate - Afr Amer 109 mL/min (>60); Estimated Creatinine Clearance 75.82 ml/min; Globulin 3.1 g/dL (2.2-4.2); Glucose 127 mg/dL (74-106); Potassium 3.7 mmol/L (3.5-5.1); Protein, Total 6.1 g/dL (6.4-8.2); Sodium Level 140 mmol/L (136-145)
[2019-03-31 06:18] LABS: Differential Comment SCANNED
[2019-03-31] MEDS: Ipratropium/Albuterol Sulfate 3 ML AMPUL.NEB INHALATION ×5 (08:00→23:40)
[2019-03-31] MEDS: Citalopram 20 MG Tablet PO (09:19)
[2019-03-31] MEDS: Pantoprazole Sodium 20 MG Tablet PO (09:19)
[2019-03-31] MEDS: Benzonatate 100 MG Capsule PO (10:12)
--- NOTE | 2019-03-31 11:22 | PCM.PROGNOTE ---
<Sylwia Raza - Last Filed: 03/31/19 11:29> Subjective: Patient seen and examined. Notes improvement overnight with nausea, vomiting. Continues to report cough and shortness of breath. Denies fever, chills. - Physical Exam Vitals/I&O's: Vital Signs Temp Pulse Resp BP Pulse Ox 98.1 F 84 16 115/67 96 03/31/19 10:04 03/31/19 10:04 03/31/19 10:04 03/31/19 10:03/31/19 09:00 Oxygen Delivery Method Room Air Weight: 153 lb 10.595 oz Body Mass Index (BMI) 25.3 Intake and Output for Last 24 Hours 03/29/19 03/30/19 03/31/19 23:59 23:59 23:59 Intake Total 1305 / 1305 1267.5 / 1267.5 Balance 1305 / 1305 1267.5 / 1267.5 General: Alert, Oriented x3, Cooperative HEENT: Atraumatic, PERRLA, EOMI, Normocephalic Neck: Supple, No JVD, Negative Carotid Bruits Lungs: Diminished, - - Few faint crackles right base Cardiovascular: Regular rate, Regular Rhythm, Normal S1, Normal S2, No murmurs Abdomen: Bowel Sounds Present, Soft, Non Tender, Non-Distended Extremities: No clubbing, No cyanosis, No edema, Capillary Refill Less than 3 Seconds Skin: No rashes, No breakdown Musculoskeletal: No Tenderness to Palpation of Joints or Extremities Neurological: Cranial nerves II-XII grossly intact, Neuro grossly intact Psych/Mental Status: Normal Affect, Appropriate Microbiology Past 72 Hours 03/30/19 19:40 Sputum, Expectorated/Coughed Gram Stain - Final 03/30/19 18:20 Urine, Clean Catch Streptococcus pneumoniae Antigen (M - Final 03/30/19 18:20 Urine, Clean Catch Legionella Antigen - Final 03/30/19 15:11 Mucosa - Nasopharyngeal Influenza Types A,B Direct FA ([place]) - Final Influenzae B Laboratory Results 03/30/19 15:00: WBC 6.1, RBC 4.47, Hgb 13.5, Hct 40.1, MCV 89.7, MCH 30.2, MCHC 33.7, RDW Std Deviation 38.5, RDW Coeff of Glenys 11.7, Plt Count 105 L, MPV 9.8, Immature Gran % (Auto) 0.300, Neut % (Auto) 85.9 H, Lymph % (Auto) 7.4 L, [place] % (Auto) 4.8, Eos % (Auto) 1.6, Baso % (Auto) 0.0, Absolute Neuts (auto) 5.2, Absolute Lymphs (auto) 0.45 L, Nucleated RBC % 0, Differential Comment SCANNED 03/30/19 15:00: Sodium 137, Potassium 3.5, Chloride 105, Carbon Dioxide 24.0, Anion Gap 8, BUN 11, Creatinine 0.85, Estim Creat Clear Calc 63.33, Est GFR (MDRD) Af Amer 87, Est GFR (MDRD) Non-Af 72, BUN/Creatinine Ratio 12.9, Glucose 110 H, Calcium 8.8 03/30/19 16:35: Lactic Acid 1.6 03/31/19 05:30: WBC 11.4 H, RBC 3.74 L, Hgb 11.4 L, Hct 34.3 L, MCV 91.7, MCH 30.5, MCHC 33.2, RDW Std Deviation 39.9, RDW Coeff of [place] 11.9, Plt Count 95 L, MPV 10.2, Immature Gran % (Auto) 0.500, Neut % (Auto) 84.7 H, Lymph % (Auto) 11.5 L, [place] % (Auto) 3.1, Eos % (Auto) 0.1, Baso % (Auto) 0.1, Absolute Neuts (auto) 9.7 H, Absolute Lymphs (auto) 1.32, Nucleated RBC % 0, Differential Comment SCANNED 03/31/19 05:30: Sodium 140, Potassium 3.7, Chloride 110 H, Carbon Dioxide 26.0, Anion Gap 4 L, BUN 9, Creatinine 0.71, Estim Creat Clear Calc 75.82, Est GFR (MDRD) Af Amer 109, Est GFR (MDRD) Non-Af 90, BUN/Creatinine Ratio 12.7, Glucose 127 H, Calcium 8.1 L, Total Bilirubin 0.80, AST 16, ALT 18, Alkaline Phosphatase 52, Total Protein 6.1 L, Albumin 3.0 L, Globulin 3.1, Albumin/Globulin Ratio 1.0 Current Medications Acetaminophen (Tylenol) 650 mg PO Q6H PRN PRN PRN Reason: Pain Score 1-10/Temp > 100.7 F Last Admin: 03/31/19 10:12 Dose: 650 mg Documented by: Al Hydroxide/Mg Hydroxide (Mylanta Ii) 30 ml PO Q6H PRN PRN PRN Reason: Gastric Burning Albuterol Sulfate (Ventolin Aerosols) 2.5 mg INHALATION Q2H PRN PRN Reason: SHORTNESS OF BREATH Albuterol/Ipratropium (Duoneb) 3 ml INHALATION Q4H.RT [facility] Last Admin: 03/31/19 11:14 Dose: 3 ml Documented by: Benzonatate (Tessalon Perle) 100 mg PO 4X/DAY PRN PRN PRN Reason: COUGH Last Admin: 03/31/19 10:12 Dose: 100 mg Documented by: Citalopram Hydrobromide (Celexa) 20 mg PO DAILY [facility] Last Admin: 03/31/19 09:19 Dose: 20 mg Documented by: Heparin Sodium (Porcine) (Heparin Na) 5,000 unit SC Q8 [facility] Last Admin: 03/31/19 05:29 Dose: 5,000 unit Documented by: Ceftriaxone Sodium 2 gm/ (Sodium Chloride) 50 mls @ 100 mls/hr IV Q24 [facility] Stop: 04/07/19 10:01 Last Infusion: 03/31/19 09:48 Dose: Infused Documented by: Azithromycin 500 mg/ Dextrose 255 mls @ 250 mls/hr IV Q24 [facility] Stop: 04/05/19 10:01 Last Admin: 03/31/19 10:12 Dose: 250 mls/hr Documented by: Nutritional Formula (Lactose Free) (Ensure Enlive) 120 ml PO 4X/DAY [facility] Last Admin: 03/31/19 09:59 Dose: Not Given Documented by: Ondansetron HCl (Zofran) 4 mg IV Q8H PRN PRN PRN Reason: NAUSEA/VOMITING Last Admin: 03/31/19 04:06 Dose: 4 mg Documented by: Pantoprazole Sodium (Protonix) 20 mg PO DAILY [facility] Last Admin: 03/31/19 09:19 Dose: 20 mg Documented by: Psyllium Hydrophilic Mucilloid (Metamucil) 1 packet PO DAILY PRN PRN PRN Reason: Constipation Sodium Chloride () 10 - 40 ml IV UD PRN PRN Reason: SALINE FLUSH Last Admin: 03/31/19 09:20 Dose: 10 ml Documented by: Medical Necessity - Tobacco Use Smoking Status: Light Smoker (<10/day) Tobacco Use: Cigarettes Assessment/Plan All Active Problems Chest pain (Resolved) 1. Acute influenza B with post viral right lower lobe pneumonia-chest x-ray with right lower lobe infiltrate. Low-grade fever, 99.7 F. No leukocytosis. Oxygen stable on room air. Urine for strep and Legionella negative. Sputum culture pending. Continue IV azithromycin and IV Rocephin. IV fluids. Albuterol and DuoNeb aerosols. PRN antiemetics. Patient is out of the window for Tamiflu given onset of symptoms greater than 1 week. Continue supportive management. Patient did not meet sepsis criteria. Patient reports extensive smoking history, recommend PFTs following resolution of acute illness for baseline lung function testing. Will begin prednisone 40mg daily X5 days given intermittent wheezing and persistent harsh cough. 2. Hyperlipidemia-previously prescribed statin, unclear if patient is still taking. 3. GERD-continue PPI. 4. Anxiety/Depression-continue citalopram regimen. 5. Tobacco dependence- Encouraged cessation. DVT prophylaxis- not indicated, low risk This patient was seen by CHAKA Martinez under the supervision of Dr. Johnson. <Rosalba Johnson - Last Filed: 03/31/19 12:07> - Physical Exam Vitals/I&O's: Vital Signs Temp Pulse Resp BP Pulse Ox 98.1 F 90 18 115/67 96 03/31/19 10:04 03/31/19 11:15 03/31/19 11:15 03/31/19 10:04 03/31/19 09:00 Oxygen Delivery Method Room Air Weight: 153 lb 10.595 oz Body Mass Index (BMI) 25.3 Intake and Output for Last 24 Hours 03/29/19 03/30/19 03/31/19 23:59 23:59 23:59 Intake Total 1305 / 1305 1267.5 / 1267.5 Balance 1305 / 1305 1267.5 / 1267.5 Microbiology Past 72 Hours 03/30/19 19:40 Sputum, Expectorated/Coughed Gram Stain - Final 03/30/19 18:20 Urine, Clean Catch Streptococcus pneumoniae Antigen (M - Final 03/30/19 18:20 Urine, Clean Catch Legionella Antigen - Final 03/30/19 15:11 Mucosa - Nasopharyngeal Influenza Types A,B Direct FA ([place]) - Final Influenzae B Laboratory Results 03/30/19 15:00: WBC 6.1, RBC 4.47, Hgb 13.5, Hct 40.1, MCV 89.7, MCH 30.2, MCHC 33.7, RDW Std Deviation 38.5, RDW Coeff of [place]ys 11.7, Plt Count 105 L, MPV 9.8, Immature Gran % (Auto) 0.300, Neut % (Auto) 85.9 H, Lymph % (Auto) 7.4 L, [place] % (Auto) 4.8, Eos % (Auto) 1.6, Baso % (Auto) 0.0, Absolute Neuts (auto) 5.2, Absolute Lymphs (auto) 0.45 L, Nucleated RBC % 0, Differential Comment SCANNED 03/30/19 15:00: Sodium 137, Potassium 3.5, Chloride 105, Carbon Dioxide 24.0, Anion Gap 8, BUN 11, Creatinine 0.85, Estim Creat Clear Calc 63.33, Est GFR (MDRD) Af Amer 87, Est GFR (MDRD) Non-Af 72, BUN/Creatinine Ratio 12.9, Glucose 110 H, Calcium 8.8 03/30/19 16:35: Lactic Acid 1.6 03/31/19 05:30: WBC 11.4 H, RBC 3.74 L, Hgb 11.4 L, Hct 34.3 L, MCV 91.7, MCH 30.5, MCHC 33.2, RDW Std Deviation 39.9, RDW Coeff of [place] 11.9, Plt Count 95 L, MPV 10.2, Immature Gran % (Auto) 0.500, Neut % (Auto) 84.7 H, Lymph % (Auto) 11.5 L, [place] % (Auto) 3.1, Eos % (Auto) 0.1, Baso % (Auto) 0.1, Absolute Neuts (auto) 9.7 H, Absolute Lymphs (auto) 1.32, Nucleated RBC % 0, Differential Comment SCANNED 03/31/19 05:30: Sodium 140, Potassium 3.7, Chloride 110 H, Carbon Dioxide 26.0, Anion Gap 4 L, BUN 9, Creatinine 0.71, Estim Creat Clear Calc 75.82, Est GFR (MDRD) Af Amer 109, Est GFR (MDRD) Non-Af 90, BUN/Creatinine Ratio 12.7, Glucose 127 H, Calcium 8.1 L, Total Bilirubin 0.80, AST 16, ALT 18, Alkaline Phosphatase 52, Total Protein 6.1 L, Albumin 3.0 L, Globulin 3.1, Albumin/Globulin Ratio 1.0 Current Medications Acetaminophen (Tylenol) 650 mg PO Q6H PRN PRN PRN Reason: Pain Score 1-10/Temp > 100.7 F Last Admin: 03/31/19 10:12 Dose: 650 mg Documented by: Al Hydroxide/Mg Hydroxide (Mylanta Ii) 30 ml PO Q6H PRN PRN PRN Reason: Gastric Burning Albuterol Sulfate (Ventolin Aerosols) 2.5 mg INHALATION Q2H PRN PRN Reason: SHORTNESS OF BREATH Albuterol/Ipratropium (Duoneb) 3 ml INHALATION Q4H.RT [facility] Last Admin: 03/31/19 11:14 Dose: 3 ml Documented by: Benzonatate (Tessalon Perle) 100 mg PO 4X/DAY PRN PRN PRN Reason: COUGH Last Admin: 03/31/19 10:12 Dose: 100 mg Documented by: Citalopram Hydrobromide (Celexa) 20 mg PO DAILY [facility] Last Admin: 03/31/19 09:19 Dose: 20 mg Documented by: Heparin Sodium (Porcine) (Heparin Na) 5,000 unit SC Q8 [facility] Last Admin: 03/31/19 05:29 Dose: 5,000 unit Documented by: Ceftriaxone Sodium 2 gm/ (Sodium Chloride) 50 mls @ 100 mls/hr IV Q24 [facility] Stop: 04/07/19 10:01 Last Infusion: 03/31/19 09:48 Dose: Infused Documented by: Azithromycin 500 mg/ Dextrose 255 mls @ 250 mls/hr IV Q24 [facility] Stop: 04/05/19 10:01 Last Admin: 03/31/19 10:12 Dose: 250 mls/hr Documented by: Nutritional Formula (Lactose Free) (Ensure Enlive) 120 ml PO 4X/DAY [facility] Last Admin: 03/31/19 09:59 Dose: Not Given Documented by: Ondansetron HCl (Zofran) 4 mg IV Q8H PRN PRN PRN Reason: NAUSEA/VOMITING Last Admin: 03/31/19 04:06 Dose: 4 mg Documented by: Pantoprazole Sodium (Protonix) 20 mg PO DAILY [facility] Last Admin: 03/31/19 09:19 Dose: 20 mg Documented by: Prednisone () 40 mg PO DAILY@0800 [facility] Stop: 04/04/19 08:01 Psyllium Hydrophilic Mucilloid (Metamucil) 1 packet PO DAILY PRN PRN PRN Reason: Constipation Sodium Chloride () 10 - 40 ml IV UD PRN PRN Reason: SALINE FLUSH Last Admin: 03/31/19 09:20 Dose: 10 ml Documented by: Assessment/Plan Hospitalist note: I am seeing this patient in conjunction with Sylwia Raza. I independently seen and examined the patient. Progress note above, laboratory data and imaging studies reviewed and I concur with above treatment plan. Patient still complaining of cough and mild shortness of breath, some green sputum. Nausea and vomiting improved. Her vital signs are stable. - Physical Exam General: Alert, Oriented x3, Cooperative, No apparent distress. HEENT: Atraumatic, PERRLA, EOMI. Neck: Supple, No JVD, Negative Carotid Bruits, Trachea Midline, Thyroid Normal. Lungs: Diminished breath sounds at the right base, faint crackles, no wheezes, no rhonchi.. Cardiovascular: Regular rate, Regular Rhythm, Normal S1, Normal S2, PMI Normal. Abdomen: Bowel Sounds Present, Soft, Non Tender, Non-Distended, No Hepato-splenomegaly. Extremities: No clubbing, No cyanosis, No edema Skin: No rashes, No breakdown Neurological: Cranial nerves are intact, neuro grossly intact Vital Signs are stable. Assessment and plan: #1 acute right lower lobe community-acquired pneumonia: She is on IV Rocephin and Zithromax. Chest x-ray reviewed. Today, she does have leukocytosis, afebrile. Still symptomatic. Pneumococcal and Legionella antigen are negative. Blood and sputum cultures are pending. Plan to continue same treatment, repeat CBC tomorrow morning. #2 influenza B: Symptoms have been going on for more than a week, she is out of window for Tamiflu. Symptomatic treatment. #3 other chronic medical problems: Stable, continue current medications as above. This note was generated with [employer]ulse[employer] software. It may contain incorrect words, spelling, and punctuation that were not noted in checking the note before signing. Code Visit Inpatient E&M: [id number] Subs Hosp L2
--- NOTE | 2019-03-31 12:32 | NURSING ---
Student documentation reviewed.
[2019-03-31] MEDS: predniSONE 20 MG Tablet 40 MG PO (12:53)
[2019-03-31] MEDS: Ensure Clear 120 ML Liquid PO ×2 (14:55→22:41)
[2019-04-01 03:00] VITALS: BP 112/72; PULSE 90; RESP 18; TEMP 36.7; O2SAT 96
[2019-04-01] MEDS: Heparin Injection (Vial) 5,000 UNIT/ML VIAL 5000 UNIT SC (06:38)
[2019-04-01 06:48] VITALS: PULSE 84; RESP 16; O2SAT 96
[2019-04-01] MEDS: Ipratropium/Albuterol Sulfate 3 ML AMPUL.NEB INHALATION (06:48)
[2019-04-01] MEDS: 0.9% Saline Lock 10 ML Syringe IV (09:18)
[2019-04-01] MEDS: Pantoprazole Sodium 20 MG Tablet PO (09:19)
[2019-04-01] MEDS: Citalopram 20 MG Tablet PO (09:19)
[2019-04-01] MEDS: predniSONE 20 MG Tablet 40 MG PO (09:19)
[2019-04-01 09:20] VITALS: BP 129/71; PULSE 90; RESP 18; TEMP 36.6; O2SAT 95
--- NOTE | 2019-04-01 11:15 | DCINST_ITS ---
You will use the following diet at home:: No restrictions Your food should be the consistency of: Regular Your liquids should be the consistency of: Regular/Thin Discharge Activity: Return to Normal Activity, - - No tobacco procucts Allergies/Adverse Reactions: Allergies Sulfa (Sulfonamide Antibiotics) Adverse Reaction (Verified 11/23/18 14:33) Nausea/Vom/Diarrhea Medications to take at Discharge Citalopram [Celexa] 20 mg PO DAILY 03/05/16 Omeprazole 20 mg PO DAILY 11/23/18 Acetaminophen [Tylenol Tablet] 650 mg PO Q6H PRN PRN tab 04/01/19 Albuterol IH (ProAir) [Proair Hfa] 1 puff INHALATION Q6H PRN PRN #1 inhaler 04/01/19 Amoxicillin/Potassium Clav [Augmentin 875-125 Tablet] 1 ea PO BID #14 tab 04/01/19 predniSONE tablet 40 mg PO DAILY@0800 #6 tab 04/01/19 The following prescriptions were given: Amoxicillin/Potassium Clav [Augmentin 875-125 Tablet] 1 ea PO BID #14 tab Transmission Status: Pending to [id number] predniSONE tablet 40 mg PO DAILY@0800 #6 tab Transmission Status: Pending to [id number] Albuterol IH (ProAir) [Proair Hfa] 1 puff INHALATION Q6H PRN PRN #1 inhaler PRN Reason: Sob &/Or Wheezing Transmission Status: Pending to [id number] Primary Care Physician: Angel Saab III, MD [Primary Care Provider] - Please follow up with your Primary Care Physician in: 1-2 weeks Test Results: Test results from this visit will be discussed in further detail at your follow- up appointment, if applicable. Please Follow Up With: Orofacial surgeon When: as previously directed Proposed Discharge Date: 04/01/19
--- NOTE | 2019-04-01 12:34 | CASEMGMT ---
RN CM Assessment Note Presentation: Influenza Intro role of CM and purpose of RN CM assessment. Demographics, PCP and Pharmacy verified. Pt ready to be dc'd, dressed, able to participate in assessment. PCP: Dr. Kaiesr SIMON Preferred [facility]acy[facility] Insurance: [facility] Community Plan Prescription Benefit: yes LNOK: daughter Keith Nielsen Living Arrangements: Lives independently, no care needs identified. Transportation: drives DME: none HHC: none Patient DC goals: Home today DC PLAN: Home today. Dilshad TYLERN RN ACM
--- NOTE | 2019-04-01 13:10 | PCM.DC.SUM ---
<Gurdeep Garcia - Last Filed: 04/01/19 13:10> Discharge Date and Diagnosis Date of Admission: 03/30/19 Date of Discharge: 04/01/19 - Primary Discharge Diagnosis RLL CAP Acute influenzae B Dental Abscess Nicotine abuse GERD Anx/Depression Hx hiatal hernia - Secondary Discharge Diagnosis Chronic Problems Anxiety and depression (Chronic) GERD (gastroesophageal reflux disease) (Chronic) Hiatal hernia (Chronic) Hospital Course and Treatment Imaging Results: IMAGING: RAD/Chest PA and Lateral IMPRESSION: Right lower lobe infiltrate. Operations: None Procedures: None Summary of Care Provided: Hospital Course: The patient is a 58 year old F with pmhs as above who presented to the ER with c/o cough, fever, chills, nausea, vomiting. She had been ill for about 1 week. She had been taking amoxicillin for a dental abscess however it did not help her respiratory complaints. She was found to have Flu B and a RLL infiltrate on CXR. She was admitted to the med surg unit and placed on rocephin and azithromycin, along with aerosols and prednisone. She improve well on these and had no increased O2 demand. Sputum on this time shows Staph. She was transitioned to PO augmentin and will complete 7 more days. She was given an albuterol inhaler and a prednisone burst. She was discharged home in stable condition. She will need to follow up with her PCP in 1-2 weeks and with her orofacial surgeon as directed for her dental abscess. At this time she has no pain at the abscess and no drainage. This patient was seen by Gurdeep Garcia PA-C under the supervision of Dr. Johnson. [] - Physical Exam Vitals/I&O's: Vital Signs Temp Pulse Resp BP Pulse Ox 97.8 F 90 18 129/71 H 95 04/01/19 09:20 04/01/19 09:20 04/01/19 09:20 04/01/19 09:20 04/01/19 09:20 Oxygen Delivery Method Room Air Weight: 152 lb 4 oz Body Mass Index (BMI) 25.3 Intake and Output for Last 24 Hours 03/30/19 03/31/19 04/01/19 23:59 23:59 23:59 Intake Total 1305 / 1305 2622.5 / 3622.5 1905 / 1905 Balance 1305 / 1305 2622.5 / 3622.5 1904 General: Alert, Oriented x3, Cooperative HEENT: Atraumatic, PERRLA, EOMI, Normocephalic Neck: Supple, No JVD, Negative Carotid Bruits Lungs: Clear to auscultation, Normal air movement Cardiovascular: Regular rate, No murmurs Abdomen: Bowel Sounds Present, Soft, Non Tender Extremities: No edema, Capillary Refill Less than 3 Seconds Skin: No rashes, No breakdown Musculoskeletal: No Tenderness to Palpation of Joints or Extremities Neurological: Cranial nerves II-XII grossly intact Psych/Mental Status: Normal Affect, Appropriate Microbiology Past 72 Hours 03/30/19 19:40 Sputum, Expectorated/Coughed Gram Stain - Final 03/30/19 19:40 Sputum, Expectorated/Coughed Respiratory Culture - Preliminary Staphylococcus aureus 03/30/19 18:20 Urine, Clean Catch Streptococcus pneumoniae Antigen (M - Final 03/30/19 18:20 Urine, Clean Catch Legionella Antigen - Final 03/30/19 15:11 Mucosa - Nasopharyngeal Influenza Types A,B Direct FA (PARISH) - Final Influenzae B Discharge Diet: No Restrictions Discharge Activity: Return to Normal Activity, - - No tobacco procucts Home Medications: Medications to take at Discharge Citalopram [Celexa] 20 mg PO DAILY 03/05/16 Omeprazole 20 mg PO DAILY 11/23/18 Acetaminophen [Tylenol Tablet] 650 mg PO Q6H PRN PRN tab 04/01/19 Albuterol IH (ProAir) [Proair Hfa] 1 puff INHALATION Q6H PRN PRN #1 inhaler 04/01/19 Amoxicillin/Potassium Clav [Augmentin 875-125 Tablet] 1 ea PO BID #14 tab 04/01/19 predniSONE tablet 40 mg PO DAILY@0800 #6 tab 04/01/19 Following Prescrptions Were Given to Patient: Amoxicillin/Potassium Clav [Augmentin 875-125 Tablet] 1 ea PO BID #14 tab Transmission Status: Received by [facility] [id number] predniSONE tablet 40 mg PO DAILY@0800 #6 tab Transmission Status: Received by [facility] [id number] Albuterol IH (ProAir) [Proair Hfa] 1 puff INHALATION Q6H PRN PRN #1 inhaler PRN Reason: Sob &/Or Wheezing Transmission Status: Received by [id number] Primary Care Physician: Angel Saab III, MD [Primary Care Provider] - Please follow up with your Primary Care Physician in: 1-2 weeks Please Follow Up With: Orofacial surgeon When: as previously directed Disposition: Home Minutes spent on discharge:: 35 Patient Condition:: Stable Medical Necessity - Tobacco Use Smoking Status: Light Smoker (<10/day) Tobacco Use: Cigarettes Meaningful Use Info Meaningful Use Diagnoses (Choose all that apply): None applicable <Rosalba Johnson E - Last Filed: 04/01/19 13:45> Discharge Date and Diagnosis - Secondary Discharge Diagnosis Chronic Problems Anxiety and depression (Chronic) GERD (gastroesophageal reflux disease) (Chronic) Hiatal hernia (Chronic) Hospital Course and Treatment Summary of Care Provided: Hospitalist note: discharge summary above reviewed and I concur with above discharge and treatment plan. Patient presented to the emergency room because of cough, chills and fever and she was found to have right lower lobe infiltrate consistent with acute right lower lobe pneumonia. Respiratory panel for viruses came back positive for influenza B. Patient was treated with IV Rocephin and Zithromax. There was no evidence of sepsis or severe sepsis. Routine blood work was unremarkable. Pneumococcal and Legionella antigen were negative. Sputum culture revealed staph aureus, final is pending at the time of discharge. Blood culture was negative up to the time of discharge. With IV antibiotic therapy, patient symptoms improved. She remained afebrile for 24 hours. Her pulse ox remained normal on room air. Patient had dental abscess that she has been treated for it before admission with a dentist as outpatient. Patient discharged home in a stable condition, discharged on Augmentin twice daily for 7 days, recommended follow-up with PCP in 1 to 2 weeks and follow-up with her dentist as scheduled. - Physical Exam General: Alert, Oriented x3, Cooperative, No apparent distress. HEENT: Atraumatic, PERRLA, EOMI. Neck: Supple, No JVD, Negative Carotid Bruits, Trachea Midline, Thyroid Normal. Lungs: Diminished breath sounds at the right base, faint crackles, no wheezes, no rhonchi.. Cardiovascular: Regular rate, Regular Rhythm, Normal S1, Normal S2, PMI Normal. Abdomen: Bowel Sounds Present, Soft, Non Tender, Non-Distended, No Hepato-splenomegaly. Extremities: No clubbing, No cyanosis, No edema Skin: No rashes, No breakdown Neurological: Cranial nerves are intact, neuro grossly intact Vital Signs are stable. This note was generated with [email or web address] dictation software. It may contain incorrect words, spelling, and punctuation that were not noted in checking the note before signing. - Physical Exam Vitals/I&O's: Vital Signs Temp Pulse Resp BP Pulse Ox 97.8 F 90 18 129/71 H 95 04/01/19 09:20 04/01/19 09:20 04/01/19 09:20 04/01/19 09:20 04/01/19 09:20 Oxygen Delivery Method Room Air Weight: 152 lb 4 oz Body Mass Index (BMI) 25.3 Intake and Output for Last 24 Hours 03/30/19 03/31/19 04/01/19 23:59 23:59 23:59 Intake Total 1305 / 1305 2622.5 / 3622.5 1905 / 1905 Balance 1305 / 1305 2622.5 / 3622.5 1905 / 1905 Microbiology Past 72 Hours 03/30/19 19:40 Sputum, Expectorated/Coughed Gram Stain - Final 03/30/19 19:40 Sputum, Expectorated/Coughed Respiratory Culture - Preliminary Staphylococcus aureus 03/30/19 18:20 Urine, Clean Catch Streptococcus pneumoniae Antigen (M - Final 03/30/19 18:20 Urine, Clean Catch Legionella Antigen - Final 03/30/19 15:11 Mucosa - Nasopharyngeal Influenza Types A,B Direct FA (PARISH) - Final Influenzae B Disposition: Home Minutes spent on discharge:: 27 Patient Condition:: Stable Meaningful Use Info Meaningful Use Diagnoses (Choose all that apply): None applicable Code Visit Inpatient E&M: 97126 Disch Hosp
== END 2019-04-01 12:02 | disposition home or self-care (01) | DRG 139 ==
LOC: ED 14:46 → MS3 17:10
PROVIDERS: Admitting Provider Internal Medicine; Emergency Provider Emergency Medicine; PCP Family Medicine; Visit Provider Hospitalist
DX: J10.00 Influenza due to other identified influenza virus with unspecified type of pneumonia (principal); K04.7 Periapical abscess without sinus; E78.5 Hyperlipidemia, unspecified; K44.9 Diaphragmatic hernia without obstruction or gangrene; K21.9 Gastro-esophageal reflux disease without esophagitis; F32.9 Major depressive disorder, single episode, unspecified; F41.9 Anxiety disorder, unspecified; F17.210 Nicotine dependence, cigarettes, uncomplicated; Z79.899 Other long term (current) drug therapy
CPT/HCPCS: 36415; 71046; 80048; 80053; 83605; 85025; 87040; 87070; 87077; 87186; 87205; 87449; 87804; 94640; 97802; 99251; 99284; 99406; J7030; A4216; G0463; J0696; J2405

== ENCOUNTER → 2020-11-08 07:03 | Outpatient (CLI) | payer OTHER, SELFPAY ==
[2020-11-08 08:53] LABS: Vitamin D,25 Hydroxy 42.2 ng/mL
[2020-11-08 09:00] LABS: Anion Gap 5 (5-15); BUN 18 mg/dL (7-18); BUN/Creat Ratio 20.6 RATIO (10-20); Calcium,Total 9.2 mg/dL (8.5-10.1); Chloride 104 mmol/L (98-107); Cholesterol 246 mg/dL (200); Creatinine, Serum 0.87 mg/dL (0.55-1.02); EST Glomerular Filtration Rate 70 mL/min (>60); Est Glom Filt Rate - Afr Amer 85 mL/min (>60); Glucose 109 mg/dL (74-106); High Density Lipoprotein 58 mg/dL; Potassium 3.9 mmol/L (3.5-5.1); Sodium Level 139 mmol/L (136-145); Thyroid Stim Hormone (TSH) 0.48 uIU/mL (0.358-3.74); Triglycerides 89 mg/dL; Very Low Density Lipoprotein 18 mg/dL (5-40)
== END ==
PROVIDERS: PCP Family Medicine; Referring Provider Family Medicine; Visit Provider Family Medicine
DX: Z00.00 Encounter for general adult medical examination without abnormal findings (principal)
CPT/HCPCS: 36415; 80048; 80061; 82306; 84443

== ENCOUNTER → 2021-06-15 | Outpatient (CLI) | payer OTHER, SELFPAY ==
[2021-06-15 10:38] LABS: Anion Gap 1 (5-15); BUN 18 mg/dL (7-18); BUN/Creat Ratio 23.2 RATIO (10-20); Calcium,Total 9.2 mg/dL (8.5-10.1); Chloride 105 mmol/L (98-107); Cholesterol 175 mg/dL (200); Creatinine, Serum 0.78 mg/dL (0.55-1.02); EST Glomerular Filtration Rate 80 mL/min (>60); Est Glom Filt Rate - Afr Amer 97 mL/min (>60); Glucose 117 mg/dL (74-106); High Density Lipoprotein 62 mg/dL; Potassium 4.4 mmol/L (3.5-5.1); Sodium Level 137 mmol/L (136-145); Triglycerides 67 mg/dL; Very Low Density Lipoprotein 13 mg/dL (5-40)
== END | disposition home or self-care (01) ==
LOC: MFPLAB 08:12
PROVIDERS: PCP Family Medicine; Referring Provider Family Medicine; Visit Provider Family Medicine
DX: Z00.00 Encounter for general adult medical examination without abnormal findings (principal)
CPT/HCPCS: 36415; 80048; 80061

== ENCOUNTER → 2021-08-13 | Outpatient (CLI) | payer OTHER, SELFPAY ==
[2021-08-16 15:42] LABS: HPV APTIMA, High Risk Negative (Negative)
== END | disposition home or self-care (01) ==
LOC: LABSPEC 15:32
PROVIDERS: PCP Family Medicine; Visit Provider Nurse Practitioner Women's Health
DX: Z12.4 Encounter for screening for malignant neoplasm of cervix (principal); Z78.0 Asymptomatic menopausal state
CPT/HCPCS: 87624; 88175; G0145

== ENCOUNTER → 2021-08-22 | Outpatient (CLI) | payer OTHER, SELFPAY ==
--- NOTE | 2021-08-22 07:19 | BI_ITS ---
MAMMOGRAPHY - BILATERAL SCREENING REASON FOR EXAM: Female, 60 years old. Routine annual screening examination. PERTINENT HISTORY: Non-contributory. TECHNIQUE: Digital bilateral breast klever (3D mammographic acquisition) in the CC and MLO projections. 2-D mediolateral oblique (MLO) and craniocaudad (CC) views of both breasts were obtained. CAD: Full Field Digital Mammography with Computer Added Detection was performed. COMPARISON: Comparison is made with prior outside examination dated 05/25/2020 FINDINGS: Breast Composition: The breasts are extremely dense, which lowers the sensitivity of mammography. There are no dominant masses or suspicious calcifications. No other significant abnormalities are identified. There has been no significant change since the prior study. BI/SCRN MAMM (CAD)W/KLEVER BILAT IMPRESSION: Stable bilateral screening mammogram. Yearly follow-up mammogram recommended. (A) ASSESSMENT CATEGORY: BIRADS Category 1: Negative. A letter regarding these results will be sent to the patient by the facility within 30 days. Approximately 10% of breast cancers are not detected by mammography. A normal mammogram should not delay biopsy of a clinically suspicious abnormality. [id number] Electronically Signed: Dano Rios MD at 8:44 EDT ,
== END | disposition home or self-care (01) ==
LOC: OPBI 07:18
PROVIDERS: PCP Family Medicine; Visit Provider Nurse Practitioner Women's Health
DX: Z12.31 Encounter for screening mammogram for malignant neoplasm of breast (principal)
CPT/HCPCS: 77063; 77067

== ENCOUNTER → 2021-12-21 | Outpatient (CLI) | payer OTHER, SELFPAY ==
--- NOTE | 2021-12-21 13:55 | CT_ITS ---
EXAM: CT CHEST, LUNG CANCER SCREENING WITHOUT INTRAVENOUS CONTRAST CLINICAL INDICATION: TOBACCO USE TECHNIQUE: Helically acquired images were obtained of the chest without intravenous contrast using low dose (LDCT) lung cancer screening protocol. This CT exam was performed using one or more of the following dose reduction techniques: automated exposure control, adjustment of the mA and/or kV according to patient size, and/or use of iterative reconstruction technique. This report was created using [email or web address] report generation technology. COMPARISON: None. FINDINGS: LUNGS AND PLEURAL SPACES: Calcified granulomas seen within the right upper middle and lower lobes. There are also calcified granulomas in the left lower lobe. No mass. No pleural effusion or thickening. No pneumothorax. HEART: There are coronary artery calcifications present. Heart size is normal. No pericardial effusion. MEDIASTINUM: Unremarkable. No mediastinal or hilar adenopathy. Esophagus is unremarkable. No hiatal hernia. THYROID: Unremarkable. No thyroid lesions. BONES/JOINTS: Unremarkable. No suspicious lytic or blastic abnormality. VASCULATURE: Unremarkable. Thoracic aorta is non-dilated. LYMPH NODES: Unremarkable. No enlarged lymph nodes. CT/Low Dose CT Lung Screening IMPRESSION: 1. Lung-RADS score: 1 - Recommend continued annual screening with low-dose CT (LDCT) in 12 months. 2. Extensive bilateral calcified nodules compatible with granulomas. No other abnormalities identified. Electronically Signed: Carlos Downey MD at 20:46 EDT ,
== END | disposition home or self-care (01) ==
LOC: CT 13:43
PROVIDERS: PCP Family Medicine; Referring Provider Family Medicine; Visit Provider Family Medicine
DX: Z87.891 Personal history of nicotine dependence (principal)
CPT/HCPCS: 71271

== ENCOUNTER → 2022-06-06 | Outpatient (CLI) | payer OTHER, SELFPAY ==
[2022-06-06 12:43] LABS: ALB/GLOB Ratio 1.3 RATIO (0.9-2.4); AST(SGOT) 19 U/L (15-37); Alanine Aminotransfer ALT/SGPT 26 U/L (13-56); Albumin, Serum 4.2 g/dL (3.2-5.0); Alkaline Phosphatase 63 U/L (45-117); Anion Gap 2 (5-15); BUN 22 mg/dL (7-18); BUN/Creat Ratio 28.6 RATIO (10-20); Calcium,Total 9.2 mg/dL (8.5-10.1); Chloride 105 mmol/L (98-107); Cholesterol 258 mg/dL (200); Creatinine, Serum 0.77 mg/dL (0.55-1.02); EST Glomerular Filtration Rate 81 mL/min (>60); Est Glom Filt Rate - Afr Amer 98 mL/min (>60); Globulin 3.2 g/dL (2.2-4.2); Glucose 110 mg/dL (74-106); High Density Lipoprotein 70 mg/dL; Protein, Total 7.4 g/dL (6.4-8.2); Sodium Level 135 mmol/L (136-145); Triglycerides 65 mg/dL; Very Low Density Lipoprotein 13 mg/dL (5-40)
== END | disposition home or self-care (01) ==
LOC: MTLAB 09:58
PROVIDERS: PCP Family Medicine; Referring Provider Family Medicine; Visit Provider Family Medicine
DX: E78.00 Pure hypercholesterolemia, unspecified (principal)
CPT/HCPCS: 36415; 80053; 80061

== ENCOUNTER → 2022-09-03 | Outpatient (CLI) | payer OTHER, SELFPAY ==
--- NOTE | 2022-09-03 11:41 | BI_ITS ---
MAMMOGRAPHY - BILATERAL SCREENING REASON FOR EXAM: Female, 61 years old. Routine annual screening examination. PERTINENT HISTORY: Non-contributory. TECHNIQUE: Digital bilateral breast klever (3D mammographic acquisition) in the CC and MLO projections. 2-D mediolateral oblique (MLO) and craniocaudad (CC) views of both breasts were obtained. CAD: Full Field Digital Mammography with Computer Added Detection was performed. COMPARISON: Comparison is made with prior study August 22, 2021. FINDINGS: Breast Composition: The breasts are extremely dense, which lowers the sensitivity of mammography. There are no dominant masses or suspicious calcifications. No other significant abnormalities are identified. There has been no significant change since the prior study. BI/SCRN MAMM (CAD)W/KLEVER BILAT IMPRESSION: Stable bilateral screening mammogram. Yearly follow-up mammogram recommended. (A) ASSESSMENT CATEGORY: BIRADS Category 1: Negative. A letter regarding these results will be sent to the patient by the facility within 30 days. Approximately 10% of breast cancers are not detected by mammography. A normal mammogram should not delay biopsy of a clinically suspicious abnormality. [id number] Electronically Signed: Dano Rios MD at 12:11 EDT ,
== END | disposition home or self-care (01) ==
LOC: OPBI 11:40
PROVIDERS: PCP Family Medicine; Referring Provider Nurse Practitioner Women's Health; Visit Provider Nurse Practitioner Women's Health
DX: Z12.31 Encounter for screening mammogram for malignant neoplasm of breast (principal)
CPT/HCPCS: 77063; 77067

== ENCOUNTER → 2023-06-12 | Outpatient (CLI) | payer OTHER, SELFPAY ==
[2023-06-12 16:18] LABS: ALB/GLOB Ratio 1.4 RATIO (0.9-2.4); AST(SGOT) 14 U/L (15-37); Alanine Aminotransfer ALT/SGPT 22 U/L (13-56); Albumin, Serum 4.2 g/dL (3.2-5.0); Alkaline Phosphatase 65 U/L (45-117); Anion Gap 3 (5-15); BUN 12 mg/dL (7-18); BUN/Creat Ratio 16.4 RATIO (10-20); Calcium,Total 9.3 mg/dL (8.5-10.1); Chloride 106 mmol/L (98-107); Cholesterol 164 mg/dL (200); Creatinine, Serum 0.73 mg/dL (0.55-1.02); EST Glomerular Filtration Rate 85 mL/min (>60); Est Glom Filt Rate - Afr Amer 103 mL/min (>60); Glucose 97 mg/dL (74-106); High Density Lipoprotein 60 mg/dL; Potassium 4.2 mmol/L (3.5-5.1); Protein, Total 7.2 g/dL (6.4-8.2); Sodium Level 138 mmol/L (136-145); Triglycerides 68 mg/dL; Very Low Density Lipoprotein 14 mg/dL (5-40)
== END | disposition home or self-care (01) ==
LOC: MFPLAB 11:43
PROVIDERS: PCP Family Medicine; Visit Provider Family Medicine
DX: Z00.00 Encounter for general adult medical examination without abnormal findings (principal)
CPT/HCPCS: 36415; 80053; 80061

== ENCOUNTER → 2023-07-01 | Outpatient (CLI) | payer OTHER, SELFPAY ==
--- NOTE | 2023-07-01 10:53 | BD_ITS ---
STUDY: DUAL ENERGY X-RAY ABSORPTIOMETRY / DXA REASON FOR EXAM: Female, 62 years old. [id number] TECHNIQUE: Bone Mineral Density (BMD) measurements of lumbar spine and bilateral hips were obtained. COMPARISON: None. FINDINGS: Lumbar Spine (L1-L4): g/cm2 (0.966) / T-score (-0.6) / Z-score (1.1) Findings are suggestive of normal bone density with a low fracture risk. Left Femur Total: g/cm2 (0.905) / T-score (-0.3) / Z-score (0.9) Left Femoral Neck: g/cm2 (0.728) / T-score (-1.1) / Z-score (0.4) Right Femur Total: g/cm2 (0.949) / T-score (0.1) / Z-score (1.3) Right Femoral Neck: g/cm2 (0.803) / T-score (-0.4) / Z-score (1.1) BD/Dexa Bone Density Study IMPRESSION: The patient is considered osteopenic as outlined below according to World Noe Organization (WHO) criteria with a low fracture risk. Reference Information: The T-score is the number of standard deviations above or below the standard which is normal for young adults at their peak bone mineral density. The World Health Organization (WHO) interprets the T-scores as follows: Above -1 Normal bone density Between -1 and -2.5 Osteopenia Equal to / or below -2.5 Osteoporosis As a practical clinical guideline, osteopenia may be graded as follows: Mild -1 through -1.5 Moderate -1.6 through -2.0 Severe -2.1 through -2.4 The Z-score is the number of standard deviations above or below age-matched controls. A Z-score of less than -1.5 would be considered abnormal. References: 1. NIH Osteoporosis and Related Bone Diseases www osteo.org 2. International Society for Clinical Densitometry www iscd.org 3. National Osteoporosis Foundation www nof.org Electronically Signed: Dano Rios MD at 13:17 EDT ,
== END | disposition home or self-care (01) ==
LOC: OPBD 10:46
PROVIDERS: PCP Family Medicine; Referring Provider Family Medicine; Visit Provider Family Medicine
DX: Z00.00 Encounter for general adult medical examination without abnormal findings (principal)
CPT/HCPCS: 77080

== ENCOUNTER → 2023-07-07 | Outpatient (CLI) | payer OTHER, SELFPAY ==
--- NOTE | 2023-07-07 13:22 | CT_ITS ---
STUDY: LOW DOSE CT LUNG CANCER SCREENING REASON FOR EXAM: Female, 62 years old. Tobacco use. 1/2 ppd x 46 years. RADIATION DOSAGE (If Supplied By Facility): CTDIvol = ( 1.59 ) mGy, DLP = ( 54.01 ) mGycm TECHNIQUE: No contrast was administered. Low dose technique was utilized (average mAS-38 and kVp 120). 1.25 mm axial source images with a slice interval of 1.25-mm were reconstructed in lung windows. 2.5 mm coronal and sagittal reformats COMPARISON: None NODULES: No suspicious pulmonary nodules. Emphysema: No consolidation, effusion, or pneumothorax. Scattered bilateral small calcified granulomas. Endobronchial lesion: No endobronchial lesion or peribronchial thickening. Aorta: Aortic atherosclerosis without ectasia or intramural hematoma. Heart: No cardiomegaly or pericardial effusion. Severe multivessel coronary atherosclerosis. Pulmonary artery: Unremarkable nonangiogram exam. Mediastinal nodes: No mediastinal or hilar adenopathy. Other chest and abdominal findings: Unremarkable thyroid. Unremarkable esophagus. No acute upper abdominal findings. CT/Low Dose CT Lung Screening IMPRESSION: No suspicious pulmonary nodules. Lung-RADS category 1 - Continue annual screening with LDCT in 12 months. Calcified sequela of prior granulomatous disease. Severe multivessel calcified coronary atherosclerosis. IMPORTANT NOTES FOR USE: ACR Lung-RADS Version 1.1 Assessment Categories Release Date: 2018 Category: Coded 0-4 bases on nodule(s) with highest degree of suspicion. Negative screen is defined as categories 1 and 2; a positive screen is defined as categories 3 and 4. Category 3 and 4A nodules that are unchanged on interval CT should be coded as category 2, and individuals returned to screening in 12 months. Category 4X: Category 3 or 4 nodules with additional imaging findings that increase the suspicion of lung cancer, such as spiculation, GGN that doubles in size in 1 year, enlarged lymph notes, etc. Category Modifiers: S (significant finding unrelated to lung cancer) Electronically Signed: Nba Zamora MD at 4:19 EDT ,
== END | disposition home or self-care (01) ==
LOC: CT 13:22
PROVIDERS: PCP Family Medicine; Referring Provider Family Medicine; Visit Provider Family Medicine
DX: Z72.0 Tobacco use (principal)
CPT/HCPCS: 71271

== ENCOUNTER → 2023-09-05 | Outpatient (CLI) | payer OTHER, SELFPAY ==
--- NOTE | 2023-09-05 12:04 | BI_ITS ---
MAMMOGRAPHY - BILATERAL SCREENING REASON FOR EXAM: Female, 62 years old. Routine annual screening examination. PERTINENT HISTORY: Non-contributory. TECHNIQUE: Digital bilateral breast klever (3D mammographic acquisition) in the CC and MLO projections. 2-D mediolateral oblique (MLO) and craniocaudad (CC) views of both breasts were obtained. CAD: Full Field Digital Mammography with Computer Added Detection was performed. COMPARISON: Comparison is made with prior study dated September 03, 2022 and August 22, 2021. FINDINGS: Breast Composition: The breasts are extremely dense, which lowers the sensitivity of mammography. There are no dominant masses or suspicious calcifications. No other significant abnormalities are identified. There has been no significant change since the prior study. BI/SCRN MAMM (CAD)W/KLEVER BILAT IMPRESSION: Stable bilateral screening mammogram. Yearly follow-up mammogram recommended. (A) ASSESSMENT CATEGORY: BIRADS Category 1: Negative. A letter regarding these results will be sent to the patient by the facility within 30 days. Approximately 10% of breast cancers are not detected by mammography. A normal mammogram should not delay biopsy of a clinically suspicious abnormality. [id number] Electronically Signed: Dano Rios MD at 12:45 EDT ,
== END | disposition home or self-care (01) ==
LOC: OPBI 12:03
PROVIDERS: PCP Family Medicine; Referring Provider Nurse Practitioner Women's Health; Visit Provider Nurse Practitioner Women's Health
DX: Z12.31 Encounter for screening mammogram for malignant neoplasm of breast (principal)
CPT/HCPCS: 77063; 77067

== ENCOUNTER → 2023-12-02 | Outpatient (CLI) | payer MEDICARE, SELFPAY ==
[2023-12-02 12:29] LABS: Absolute Lymphocyte Count 1.92 X10^3/uL (0.83-4.51); Absolute Neutrophil Count 2.8 X10^3/uL (2.0-7.7); Basophil# 0.03 X10^3/uL; Basophil% 0.6 % (0-1); Eosinophil# 0.06 X10^3/uL; Eosinophils% 1.2 % (0-5); Hematocrit 43.7 % (37-47); Hemoglobin 14.8 g/dL (12.0-15.0); Lymphocyte # 1.92 X10^3/ul (0.83-4.51); Lymphocyte % 37.4 % (19-41); Mean Corp Hgb Conc 33.9 g/dL (32-36); Mean Corpuscular Hgb 32.3 pg (27.0-32.0); Mean Corpuscular Volume 95.4 fL (81-99); Mean Platelet Vol. 10.2 fl (6.2-12.0); Monocyte# 0.37 X10^3/uL; Monocyte% 7.2 % (0-10); NRBC Flagged by Analyzer 0 % (0-5); Neutrophil # 2.75 X10^3/uL (2.7-7.7); Neutrophil % 53.4 % (47-70); Platelet Count 213 K/mm3 (150-450); RBC Distribution Width CV 11.5 % (11.6-14.6); RBC Distribution Width SD 40.2 fl (35.1-43.9); Red Blood Count 4.58 M/mm3 (4.2-5.4); White Blood Count 5.1 K/mm3 (4.4-11.0)
[2023-12-02 13:18] LABS: ALB/GLOB Ratio 1.3 RATIO (0.9-2.4); AST(SGOT) 17 U/L (15-37); Alanine Aminotransfer ALT/SGPT 17 U/L (13-56); Albumin, Serum 4.4 g/dL (3.2-5.0); Alkaline Phosphatase 72 U/L (45-117); Anion Gap 8 (5-15); BUN 18 mg/dL (7-18); BUN/Creat Ratio 23.2 RATIO (10-20); Calcium,Total 9.5 mg/dL (8.5-10.1); Chloride 104 mmol/L (98-107); Creatinine, Serum 0.78 mg/dL (0.55-1.02); EST Glomerular Filtration Rate 79 mL/min (>60); Est Glom Filt Rate - Afr Amer 96 mL/min (>60); Globulin 3.3 g/dL (2.2-4.2); Glucose 115 mg/dL (74-106); Lipase 68 U/L (13-75); Potassium 3.8 mmol/L (3.5-5.1); Protein, Total 7.7 g/dL (6.4-8.2); Sodium Level 138 mmol/L (136-145)
== END | disposition home or self-care (01) ==
PROVIDERS: PCP Family Medicine
DX: K29.00 Acute gastritis without bleeding (principal)
CPT/HCPCS: 36415; 80053; 83690; 85025

== ENCOUNTER 2023-12-06 19:54 | Emergency (ER) | payer MEDICARE, OTHER, SELFPAY ==
[2023-12-06 19:54] VITALS: BP 161/87; PULSE 74; RESP 16; TEMP 36.4; O2SAT 97; BMI 24.2
[2023-12-06 20:09] VITALS: O2SAT 98
--- NOTE | 2023-12-06 20:15 | EKG12_ITS ---
Test Reason : CP Blood Pressure : / mmHG Vent. Rate : 070 BPM Atrial Rate : 070 BPM P-R Int : 154 ms QRS Dur : 074 ms QT Int : 394 ms P-R-T Axes : 051 019 022 degrees QTc Int : 425 ms Normal sinus rhythm Normal ECG Confirmed by Florencio Farooq ([id number]), department editor UMAIR MELENDEZ ([id number]) on 12/08/2023 9:39:20 AM Referred By: TL Confirmed By:Florencio Farooq
--- NOTE | 2023-12-06 20:27 | RAD_ITS ---
INDICATION: chest pain EXAMINATION/TECHNIQUE: X-RAY - XR Chest 2 Views COMPARISON: March 30, 2019 FINDINGS: LINES/DEVICES: None. LUNGS: No consolidation, edema or effusion. No pneumothorax. MEDIASTINUM AND CARDIOVASCULAR STRUCTURES: Cardiac silhouette not enlarged. Central airways and mediastinal contour are unremarkable. BONES AND SOFT TISSUES: Unremarkable. RAD/Chest PA and Lateral IMPRESSION: No radiographic evidence of acute cardiopulmonary disease. Electronically Signed: Danielito Noble DO at 20:50 EDT ,
[2023-12-06 20:28] LABS: Absolute Lymphocyte Count 2.77 X10^3/uL (0.83-4.51); Absolute Neutrophil Count 2.1 X10^3/uL (2.0-7.7); Basophil# 0.03 X10^3/uL; Basophil% 0.5 % (0-1); Eosinophil# 0.12 X10^3/uL; Eosinophils% 2.2 % (0-5); Hematocrit 39.3 % (37-47); Hemoglobin 13.3 g/dL (12.0-15.0); Lymphocyte # 2.77 X10^3/ul (0.83-4.51); Lymphocyte % 50.5 % (19-41); Mean Corp Hgb Conc 33.8 g/dL (32-36); Mean Corpuscular Hgb 32.1 pg (27.0-32.0); Mean Corpuscular Volume 94.9 fL (81-99); Mean Platelet Vol. 9.4 fl (6.2-12.0); Monocyte# 0.51 X10^3/uL; Monocyte% 9.3 % (0-10); NRBC Flagged by Analyzer 0 % (0-5); Neutrophil # 2.05 X10^3/uL (2.7-7.7); Neutrophil % 37.3 % (47-70); Platelet Count 185 K/mm3 (150-450); RBC Distribution Width CV 11.4 % (11.6-14.6); RBC Distribution Width SD 39.7 fl (35.1-43.9); Red Blood Count 4.14 M/mm3 (4.2-5.4); White Blood Count 5.5 K/mm3 (4.4-11.0)
[2023-12-06 20:47] LABS: Anion Gap 6 (5-15); BUN 15 mg/dL (7-18); BUN/Creat Ratio 18.9 RATIO (10-20); Calcium,Total 9.3 mg/dL (8.5-10.1); Chloride 106 mmol/L (98-107); Creatinine, Serum 0.79 mg/dL (0.55-1.02); EST Glomerular Filtration Rate 77 mL/min (>60); Est Glom Filt Rate - Afr Amer 94 mL/min (>60); Estimated Creatinine Clearance 63.09 ml/min; Glucose 87 mg/dL (74-106); Potassium 3.7 mmol/L (3.5-5.1); Sodium Level 140 mmol/L (136-145); Troponin-I HS (w/2H Reflex) < 3 pg/mL (3.0-54.0)
[2023-12-06 22:22] LABS: Reflex Troponin-HS? (from REC) Y
[2023-12-06 22:25] LABS: D-Dimer Quantitative (DVT/PE) 0.27 FEU/ug/m (0.27-0.49)
[2023-12-06 22:29] LABS: AST(SGOT) 15 U/L (15-37); Alanine Aminotransfer ALT/SGPT 16 U/L (13-56); Alkaline Phosphatase 67 U/L (45-117); Bilirubin, Direct 0.12 mg/dL (0.00-0.30); Globulin 2.7 g/dL (2.2-4.2); Protein, Total 6.7 g/dL (6.4-8.2)
[2023-12-06 22:54] VITALS: BP 147/104; PULSE 72; RESP 17; O2SAT 99
[2023-12-06 22:57] LABS: Troponin-I HS < 3 pg/mL (3.0-54.0)
[2023-12-06 23:00] VITALS: BP 147/77; PULSE 67; RESP 18; O2SAT 99
--- NOTE | 2023-12-06 23:02 | CT_ITS ---
STUDY: CT ABDOMEN AND PELVIS WITH CONTRAST REASON FOR EXAM: Female, 63 years old. RUQ pain RADIATION DOSAGE (If Supplied By Facility): CTDIvol = ( 6.58 ) mGy, DLP = ( 295.90 ) mGycm TECHNIQUE: Transaxial images were obtained from the dome of the diaphragm to the symphysis pubis without oral contrast. IV 75mL Isovue-[id number] was administered. Sagittal and coronal images were reconstructed. Individualized dose optimization techniques were used for this CT. COMPARISON: None. FINDINGS: The visualized lung bases demonstrate calcified granulomas in. The visualized portions of the heart are within normal limits. Normal liver. Normal gallbladder and extrahepatic biliary system. Normal spleen. Normal pancreas. Normal bilateral adrenal glands. Normal right kidney. Normal left kidney. Normal visualized stomach. Normal small intestine. Diverticulosis of the colon. The appendix is visualized and appears normal. Normal abdominal aorta. Normal inferior vena cava. Normal retroperitoneum. Normal urinary bladder. Normal abdominal wall. Normal osseous structures. CT/Abdomen/Pelvis W IV Cont ONLY IMPRESSION: Mild colonic diverticulosis. Electronically Signed: Danielito Noble DO at 0:03 EDT Reading Location ID and State: [facility] / [place] Tel [phone], Service support ,
--- NOTE | 2023-12-06 23:37 | EDS_ITS ---
HPI History of Present Illness Chief Complaint: Chest Pain Narrative Narrative: Patient is a 63-year-old female with past medical history of GERD, anxiety, depression, hiatal hernia who presents to the emerged part with chief complaint of reflux symptoms and right sided abdominal pain/back pain. Patient states that she has had these symptoms going on for quite some time now she states that she was on some reflux medication follow-up with her primary care physician was placed on some other reflux medication and noted that recently her symptoms started worsening again. Patient states that if she is up moving around her symptoms seem to be worse and when she is resting her symptoms seem to improved. Patient states that she has had a stress test approximately 5 years ago that was normal at that point time. Patient denies any history of blood clots or travel history denies any recent sick contacts. [facility] Medical History Tinnitus Home Medications ?Medication ?Instructions ?Recorded ?Last Taken ?Type citalopram 20 mg tablet 20 mg PO DAILY depression 03/05/16 03/30/19 History omeprazole 20 mg capsule,delayed 20 mg PO DAILY gerd 11/23/18 03/30/19 History release lorazepam 0.5 mg tablet (Ativan) 0.5 mg PO DAILY PRN 08/13/21 Unknown History atorvastatin 10 mg tablet 10 mg PO QDAY 09/08/23 Unknown History famotidine 40 mg tablet 40 mg PO QHS 12/06/23 Unknown History sucralfate 100 mg/mL oral 10 ml PO 4X/DAY 12/06/23 Unknown History suspension Allergy/AdvReac Type Severity Reaction Status Date / Time codeine Allergy Intermediate Nausea/Vom/ Verified 12/06/23 19:54 Diarrhea Sulfa (Sulfonamide AdvReac Nausea/Vom/ Verified 12/06/23 19:54 Antibiotics) Diarrhea Family History Other Cancer Heart disease Surgical History History of bilateral ligation of fallopian tubes S/P tonsillectomy Delivery by section Social History household members: family current occupational status: retired Smoking Status: Light Smoker (<10/day) alcohol intake: never substance use type: does not use what type of physical activity do you participate in: walking frequency: 1-2 times per week seatbelt use: always do you feel safe at home: Yes additional social history: ROS ROS ED ROS Narrative Constitutional: Denies any fevers, chills, headaches, lightness, dizziness Eyes: Denies change in vision double vision blurry Cardiovascular: Denies chest pain or palpitations Respiratory: Denies coughing wheezing shortness of breath Abdomen: Complains of nausea as noted above denies vomiting or diarrhea : Denies pain phonation, hematuria and polyuria Neurological: Denies numbness, weakness, tingling Musculoskeletal: Complains of some back pain as noted above Skin: Denies rashes or lesions EXAM Physical Exam Narrative Exam Narrative: General: Patient lying in bed rest comfortably did not appear to be acute distress Head: Atraumatic, normocephalic Eyes: PERRL bilateral, EOMI bladder, no conjunctival injection noted Neck: Soft, supple, trach midline Cardiovascular: Regular rate and rhythm no murmurs gallops rubs noted Respiratory: Clear to auscultation bilaterally Abdomen: Soft, tender to palpation in the right upper quadrant no rebound or guarding on exam, bowel sounds present MS 4 Extremities: +5/5 strength noted in the bilateral lower extremities, no pedal edema exam, radial pulses +2/4 in the bilateral Neurological: Patient following commands knew that she was at [facility] years 2023 Skin: Warm, dry, intact Const Vital Signs: 12/06/23 19:54 12/06/23 20:09 12/06/23 20:18 Temperature 97.5 F L Temperature Source Oral Pulse Rate 74 Respiratory Rate 16 Respiratory Effort Normal Blood Pressure 161/87 H Blood Pressure Mean 111 Pulse Ox 97 98 Oxygen Delivery Method Room Air Room Air 12/06/23 22:54 12/06/23 23:00 Temperature Temperature Source Pulse Rate 72 67 Respiratory Rate 17 18 Respiratory Effort Blood Pressure 147/104 H 147/77 H Blood Pressure Mean 118 100 Pulse Ox 99 99 Oxygen Delivery Method Room Air Room Air MDM MDM MDM Narrative Medical decision making narrative: Patient is a 63-year-old female who presented to the emerged part with a chief complaint of abdominal pain, nausea vomiting not feeling well. Patient will have a workup performed here on the differential diagnose clues but limited to pancreatitis, cholecystitis, GERD, ACS, pneumonia. Once workup is obtained reviewed she will be reevaluated. Patient CBC reviewed and showed no evidence leukocytosis white blood cell count normal at 5.5, hemoglobin stable 13.3, platelet count normal 185. Patient's sodium was noted be 140, potassium normal 3.7, creatinine normal at 0.79. Patient's AST and ALT were 15 and 16 respectively, troponin was noted to be less than 3 with a delta troponin obtained at less than 3 as well. Patient's D-dimer was noted to be normal at 0.27. Patient's chest x-ray was reviewed and showed no acute cardiopulmonary processes this was reviewed by myself and by radiology. Patient CT abdomen pelvis still pending at this point time. Will sign the case out to oncoming physician Dr. Fine who will follow-up on this and make ultimate disposition of the patient's see his note for further details. Lab Data Labs: Laboratory Results - last 24 hr 12/06/23 12/06/23 12/06/23 20:18 22:00 22:28 WBC 5.5 RBC 4.14 L Hgb 13.3 Hct 39.3 MCV 94.9 MCH 32.1 H MCHC 33.8 RDW Std Deviation 39.7 RDW Coeff of Glenys 11.4 L Plt Count 185 MPV 9.4 Immature Gran % (Auto) 0.200 Neut % (Auto) 37.3 L Lymph % (Auto) 50.5 H Evans % (Auto) 9.3 Eos % (Auto) 2.2 Baso % (Auto) 0.5 Absolute Neuts (auto) 2.1 Absolute Lymphs (auto) 2.77 Nucleated RBC % 0 D-Dimer Quant (PE/DVT) 0.27 Sodium 140 Potassium 3.7 Chloride 106 Carbon Dioxide 29.0 Anion Gap 6 BUN 15 Creatinine 0.79 Estim Creat Clear Calc 63.09 Est GFR (MDRD) Af Amer 94 Est GFR (MDRD) Non-Af 77 BUN/Creatinine Ratio 18.9 Glucose 87 Calcium 9.3 Total Bilirubin 0.40 Direct Bilirubin 0.12 AST 15 ALT 16 Alkaline Phosphatase 67 Troponin I High Sens < 3 L < 3 L Total Protein 6.7 Albumin 4.0 Globulin 2.7 Radiography Diagnostic Testing: Clinical Impression(s) from Imaging Studies Chest X-Ray 12/06/23 20:27 IMPRESSION: No radiographic evidence of acute cardiopulmonary disease. Electronically Signed: Danielito Noble at 20:50 EDT , Abdomen/Pelvis CT 12/06/23 23:02 IMPRESSION: Mild colonic diverticulosis. Electronically Signed: Danielito Noble at 0:03 EDT , Discharge Plan Triage Chief Complaint: Chest Pain Other Complaint: Abd Pain ED Provider: Morro Cano Dx/Rx/DC Orders Prescriptions: No Action lorazepam [Ativan] 0.5 mg tablet 0.5 mg PO DAILY PRN atorvastatin 10 mg tablet 10 mg PO QDAY citalopram 20 MG tablet 20 mg PO DAILY omeprazole 20 MG capsule,delayed release(DR/EC) 20 mg PO DAILY sucralfate 100 mg/mL suspension 10 ml PO 4X/DAY famotidine 40 mg tablet 40 mg PO QHS Primary Care Provider: Walt Flores Referrals: Walt Flores MD [Primary Care Provider] - Print Language: Faroese
[2023-12-07] VITALS: BP 148/82; PULSE 67; RESP 17; O2SAT 98
[2023-12-07 01:00] VITALS: BP 144/82; PULSE 66; RESP 15; O2SAT 99
[2023-12-07 01:25] VITALS: BP 141/84; PULSE 71; RESP 18; TEMP 35.9; O2SAT 97
== END 2023-12-07 01:26 | disposition home or self-care (01) ==
PROVIDERS: Emergency Provider Emergency Medicine; PCP Family Medicine; Visit Provider Emergency Medicine
DX: R10.9 Unspecified abdominal pain (principal); F32.9 Major depressive disorder, single episode, unspecified; F41.9 Anxiety disorder, unspecified; F17.200 Nicotine dependence, unspecified, uncomplicated; Z79.899 Other long term (current) drug therapy
CPT/HCPCS: 71046; 74177; 80048; 80076; 84484; 85025; 85379; 93005; 99285; Q9967; A4216

== ENCOUNTER → 2023-12-09 | Outpatient (CLI) | payer MEDICARE, OTHER, SELFPAY ==
--- NOTE | 2023-12-09 07:25 | US_ITS ---
INDICATION: RUQ pain and gastritis. EXAMINATION: Ultrasound US Abdomen Limited (quadrant) TECHNIQUE: Dozier scale and color doppler imaging was performed of the right upper quadrant. COMPARISON: Prior study dated: CT abdomen and pelvis 12/06/2023 FINDINGS: LIVER: There is normal echotexture. No focal hepatic lesion. There is no free fluid. GALLBLADDER AND BILIARY TREE: No shadowing gallstone, pericholecystic fluid or gallbladder wall thickening is demonstrated. The proximal common bile duct measures 3 mm, which is within normal limits for the patient''s age. Sonographic Dahl''s sign: Negative. PANCREAS: No focal abnormality is demonstrated in the pancreas. No pancreatic ductal dilatation. RIGHT KIDNEY: 8.8 cm long axis. No hydronephrosis. US/Abdomen Limited IMPRESSION: No acute sonographic abnormality is demonstrated in the right upper quadrant. Electronically Signed: Rick Goodrich MD at 19:26 EDT ,
== END | disposition home or self-care (01) ==
LOC: US 07:20
PROVIDERS: PCP Family Medicine
DX: K29.00 Acute gastritis without bleeding (principal); R10.11 Right upper quadrant pain
CPT/HCPCS: 76705

== ENCOUNTER → 2023-12-24 | Outpatient (CLI) | payer MEDICARE, OTHER, SELFPAY ==
--- NOTE | 2023-12-24 16:48 | STRESSREP ---
Stress Test Report Exercise myocardial perfusion stress test. 63-year-old lady with a history of chest pain Stress protocol: Resting EKG demonstrates normal sinus rhythm with a rate of 67 bpm resting blood pressure is 124/84 mmHg. The patient exercised according to the regular Jerod protocol for a total duration of 6 minutes attaining a maximum heart rate of 141 bpm which was 90% of maximum predicted heart rate; the maximum workload was 7 metabolic equivalents. At rest there were no ST or T wave changes noted to suggest ischemia and at peak exercise upsloping ST changes only were noted which did not meet the criteria for ischemia. No clinical angina was noted the test was terminated due to the target heart rate being achieved/fatigue. The peak blood pressure was 144/72 mmHg. Rate-pressure product was 20,300. Myocardial perfusion protocol. 10.3 mCi of technetium 99m sestamibi was injected at rest. The patient exercised according to regular Jerod protocol for total duration of 6 minutes and at peak exercise 31.5 mCi of technetium 99m sestamibi was injected stress images were obtained stress and rest images were reconstructed in comparing the short axis vertical long and horizontal long axis. Gated images were also obtained. Perfusion SPECT analysis: Review of the stress images demonstrate normal uptake of tracer noted in all areas of the myocardium. The resting images similarly demonstrate normal uptake of tracer noted in all areas of the myocardium. No areas of reversibility are noted to suggest ischemia no previous infarct was noted. Gated SPECT analysis: The gated ejection fraction is 82%. Conclusion: Normal exercise myocardial perfusion stress test at a moderate workload Preserved ejection fraction.
== END | disposition home or self-care (01) ==
LOC: CVS 06:15
PROVIDERS: PCP Family Medicine; Referring Provider Family Medicine; Visit Provider Family Medicine
DX: Z09 Encounter for follow-up examination after completed treatment for conditions other than malignant neoplasm (principal); R07.9 Chest pain, unspecified
CPT/HCPCS: 78452; 93017; A9500; A4216

== ENCOUNTER → 2024-06-09 | Outpatient (CLI) | payer MEDICARE, OTHER, SELFPAY ==
[2024-06-09 16:52] LABS: ALB/GLOB Ratio 1.7 RATIO (0.9-2.4); AST(SGOT) 19 U/L (<=31); Alanine Aminotransfer ALT/SGPT 12 U/L (<=34); Albumin, Serum 4.6 g/dL (3.4-4.8); Alkaline Phosphatase 79 U/L (35-104); Anion Gap 12 (5-15); BUN 13 mg/dL (4-19); BUN/Creat Ratio 16.9 RATIO (10-20); Calcium,Total 9.5 mg/dL (7.6-11.0); Carbon Dioxide 25.9 mmol/L (21.0-32.0); Chloride 102 mmol/L (98-108); Cholesterol 198 mg/dL (<=200); Creatinine, Serum 0.79 mg/dL (0.70-1.20); EST Glomerular Filtration Rate 83 (>60); Globulin 2.7 g/dL (2.2-4.2); Glucose 92 mg/dL (70-99); High Density Lipoprotein 66 mg/dL; Low Density Lipoprotein Calc. 114 mg/dL; Potassium 4.2 mmol/L (3.3-5.1); Protein, Total 7.3 g/dL (5.9-8.4); Sodium Level 139 mmol/L (133-145); Total Bilirubin 0.65 mg/dL (0.00-1.30); Triglycerides 87 mg/dL; Very Low Density Lipoprotein 17 mg/dL (5-40); cholesterol:hdl ratio screen 2.98
== END | disposition home or self-care (01) ==
LOC: MFPLAB 11:28
PROVIDERS: PCP Family Medicine; Referring Provider Family Medicine; Visit Provider Family Medicine
DX: E78.5 Hyperlipidemia, unspecified (principal)
CPT/HCPCS: 36415; 80053; 80061

== ENCOUNTER → 2024-09-14 | Outpatient (CLI) | payer MEDICARE, SELFPAY ==
--- OUTSIDE RECORDS SUMMARY | 2024-09-14 20:01 | XMS RPT_ITS | CCD ---
Author Organization [facility] Care Team Providers Care General Doc Name Role Phone YARELIS MUÑIZ (DEEPTI) Unavailable Unavailabl e Dr. Walt Flores Primary Care Provider Mark, Dr. Godoy Referring Provider [phone] Virgie TREVIZO, JOSELINE-C Aicha Attending Provider Mark, Dr. Godoy Primary Care Provider Mark, Dr. Godoy Referring Provider [phone] Virgie TREVIZO, JOSELINE-C Aicha Attending Provider Mark, Dr. Godoy Primary Care Provider Mark, Dr. Godoy Referring Provider DEEPTI [place] Attending Provider Dr. Walt Flores MD Primary Care Provider [phone] Mark CHOW, Dr. Godoy Attending Provider [phone] Mark CHOW, Dr. Godoy Referring Provider Keith Avilez Attending Provider Walt Flores Referring Unavailable Walt Flores Primary Care Unavailable Virgie FLANGE MACHINE OPERATOR, Aicha Attending Unavailable Walt Flores Consulting Unavailable Prateek Metcalf Attending Unavailable Walt Flores Referring Unavailable Walt Flores Primary Care Unavailable Walt Flores Referring Unavailable Mark, Walt Primary Care Unavailable Keith Avilez Attending Unavailable Walt Flores Primary Care Unavailable Morro Cano Attending Unavailable Walt Flores Primary Care Unavailable Friend, Raghavendra Attending Unavailable Mark, Walt Primary Care Unavailable Virgie FLANGE MACHINE OPERATOR, Aicha Attending Unavailable Virgie FLANGE MACHINE OPERATOR, Aicha Referring Unavailable FloresWalt slaughter Attending Unavailable FloresWalt slaughter Referring Unavailable FloresWalt slaughter Primary Care Unavailable McMorrow Jl TREVIZO Attending Unavailable McMorrow FLANGE MACHINE OPERATORJl Referring Unavailable Walt Flores Primary Care Unavailable McMorrow Jl TREVIZO Attending Unavailable Walt Flores Primary Care Unavailable Gordonorrow Jl TREVIZO Referring Unavailable Walt Flores Attending Unavailable Walt Flores Referring Unavailable Walt Flores Primary Care Unavailable Aicha Junior Attending Provider Allergies Allergy Classification Reported Allergen(s) Allergy Type Date of Onset Reaction(s) Facility (10 sources) codeine; Translations: [CODEINE] Drug Allergy 5 Nausea/Vom/Diar onesimo [facility] Repository (1 source) DULoxetine; Translations: [DULOXETINE] Drug Allergy 5 AOF [facility] Repository (1 source) FLUoxetine; Translations: [FLUOXETINE HCL] Drug Allergy 5 [facility] Repository (11 sources) Sulfonamides (Antibiotic); Translations: [SULFA (SULFONAMIDE ANTIBIOTICS)] Propensity to adverse reactions to drug (disorder) 5 Nausea/Vom/Diar onesimo [facility] Repository Medications Current Medications Medication Drug Class(es) Dates Sig (Normalized) Sig (Original) atorvastatin 10 mg oral tablet (12 sources) HMG-CoA Reductase Inhibitor Start: 09-08-2023 take 1 tablet by mouth once daily Atorvastatin 10 mg tablet Active 10 mg PO daily September 08, 2023 12:00am Start: 11-24-2018 End: 12-24-2018 take 1 tablet by mouth at bedtime Atorvastatin 40 MG tablet Discontinued 40 mg PO AT BEDTIME 30 30 0 November 24, 2018 12:00am December 23, 2018 12:00am December 24, 2018 12:11am citalopram 20 mg oral tablet (9 sources) Serotonin Reuptake Inhibitor Start: 03-05-2016 take 1 tablet by mouth once daily Citalopram 20 MG tablet Active 20 mg PO DAILY March 05, 2016 1:00am depression LORazepam 0.5 mg oral tablet (8 sources) Benzodiazepine Start: 08-13-2021 take 1 tablet by mouth once daily as needed Lorazepam (Ativan) 0.5 mg tablet Active 0.5 mg PO DAILY as needed August 13, 2021 12:00am omeprazole 20 mg delayed release oral capsule (9 sources) Proton Pump Inhibitor Start: 11-23-2018 take 1 capsule by mouth once daily Omeprazole 20 MG capsule,delayed release(DR/EC) Active 20 mg PO DAILY November 23, 2018 12:00am gerd Completed/Discontinued Medications Medication Drug Class(es) Dates Sig (Normalized) Sig (Original) acetaminophen 325 mg oral tablet (9 sources) Start: 04-01-2019 End: 08-13-2021 Acetaminophen 325 MG tablet Discontinued 650 mg PO EVERY 6 HOURS NEEDED as needed for Pain Score 1-10/Temp > 100.7 F 0 April 01, 2019 1:00am August 13, 2021 2:53pm Start: 04-01-2019 End: 08-13-2021 take 650 mg by mouth every six hours as needed Acetaminophen Discontinued 650 MG PO EVERY 6 HOURS NEEDED April 01, 2019 1:00am August 13, 2021 2:53pm [id number] 200 actuat albuterol 0.09 mg/actuat metered dose inhaler (9 sources) beta2-Adrenergic Agonist Start: 04-01-2019 End: 08-13-2021 Albuterol Sulfate 1 PUFF inhaler Discontinued 1 NMA INHALATION EVERY 6 HOURS NEEDED as needed for Sob &/Or Wheezing 1 April 01, 2019 1:00am August 13, 2021 2:54pm Start: 04-01-2019 End: 08-13-2021 take 1 puff(s) by inhalation every six hours as needed Albuterol Sulfate Discontinued 1 PUFF INHALATION EVERY 6 HOURS NEEDED 1 April 01, 2019 1:00am August 13, 2021 2:54pm amoxicillin 500 mg oral capsule (9 sources) Penicillin-class Antibacterial Start: 03-30-2019 End: 04-01-2019 take 1 capsule by mouth four times daily Amoxicillin 500 MG capsule Discontinued 500 mg PO 4 TIMES DAILY March 30, 2019 1:00am April 01, 2019 12:13pm tooth abscess amoxicillin 875 mg / clavulanate 125 mg oral tablet (11 sources) Penicillin-class Antibacterial Start: 08-06-2024 End: 08-16-2024 Amoxicillin-Pot Clavulanate 875-125 mg tablet Discontinued 1 {tbl} PO Q12H 20 10 0 August 06, 2024 12:00am August 15, 2024 12:00am August 16, 2024 12:07am Acute sinusitis, unspecified Start: 04-01-2019 End: 08-13-2021 take 1 tablet by mouth twice daily in the morning Amoxicillin-Pot Clavulanate 1 EACH tablet Discontinued 1 NMA PO TWICE A DAY 14 April 01, 2019 1:00am August 13, 2021 2:54pm next dose 04/02/2019 AM Start: 04-01-2019 End: 08-13-2021 take 1 dose by mouth twice daily in the morning Amoxicillin-Pot Clavulanate Discontinued 1 EACH PO TWICE A DAY 14 April 01, 2019 1:00am August 13, 2021 2:54pm next dose 04/02/2019 AM azithromycin 250 mg oral tablet (4 sources) Macrolide Antimicrobial Start: 12-20-2022 End: 09-08-2023 take 2-5 tablets by mouth once daily Azithromycin 250 mg tablet Discontinued 0 PO .COMPLEX 6 0 December 20, 2022 12:00am September 08, 2023 9:19am take 500 mg today (day 1), then 250 mg for 4 days (days 2-5) PO benzonatate 100 mg oral capsule (4 sources) Non-narcotic Antitussive Start: 12-20-2022 End: 09-08-2023 take 2 capsules by mouth three times daily as needed for cough Benzonatate 100 mg capsule Discontinued 200 mg PO THREE TIMES A DAY as needed for cough December 20, 2022 12:00am September 08, 2023 9:19am Start: 12-20-2022 take 200 mg by mouth three times daily Benzonatate Active 200 MG PO THREE TIMES A DAY December 20, 2022 12:00am famotidine 40 mg oral tablet (3 sources) Histamine-2 Receptor Antagonist Start: 12-06-2023 End: 09-14-2024 take 1 tablet by mouth at bedtime Famotidine 40 mg tablet Discontinued 40 mg PO AT BEDTIME December 06, 2023 12:00am September 14, 2024 8:02am meclizine hydrochloride 25 mg oral tablet (4 sources) Antiemetic Start: 03-18-2023 End: 09-08-2023 take 1 tablet by mouth three times daily as needed for dizziness Meclizine 25 mg tablet Discontinued 25 mg PO THREE TIMES A DAY as needed for dizziness March 18, 2023 1:00am September 08, 2023 9:20am predniSONE 20 mg oral tablet (9 sources) Start: 04-01-2019 End: 08-13-2021 take 1 tablet by mouth once daily Prednisone 20 MG tablet Discontinued 40 mg PO DAILY@0800 6 0 April 01, 2019 1:00am August 13, 2021 2:54pm next dose 04/02/2019 AM Start: 04-01-2019 End: 08-13-2021 take 1 dose by mouth once daily Prednisone Discontinued 40 MG PO DAILY@0800 6 April 01, 2019 1:00am August 13, 2021 2:54pm next dose 04/02/2019 AM sucralfate 100 mg/ml oral suspension (3 sources) Aluminum Complex Start: 12-06-2023 End: 09-14-2024 take 1 mL by mouth four times daily Sucralfate 100 mg/mL suspension Discontinued 10 mL PO 4 TIMES DAILY December 06, 2023 12:00am September 14, 2024 8:02am Problems Active Problems Problem Classification Problem Date Documented Date Episodic/Chronic Abdominal hernia (9 sources) Hiatal hernia; Translations: [Diaphragmatic hernia without obstruction or gangrene] 03-30-2019 Episodic Abdominal pain (3 sources) Nonspecific abdominal pain; Translations: [Unspecified abdominal pain] 12-15-2023 Episodic Acute bronchitis (3 sources) Acute bronchitis; Translations: [Acute bronchitis, unspecified] 12-20-2022 Episodic Anxiety disorders (9 sources) Mixed anxiety and depressive disorder; Translations: [Anxiety disorder, unspecified] 03-30-2019 Chronic Disorders of lipid metabolism (1 source) Hyperlipidemia, unspecified; Translations: [Hyperlipidemia, unspecified] Onset: 06-15-2024 Chronic Esophageal disorders (9 sources) Gastroesophageal reflux disease; Translations: [Gastro-esophageal reflux disease without esophagitis] 03-30-2019 Chronic Nonspecific chest pain (11 sources) Chest pain; Translations: [Chest pain, unspecified] Onset: 04-05-2024 03-30-2019 Episodic Other ear and sense organ disorders (3 sources) Tinnitus; Translations: [Tinnitus, unspecified ear] 03-18-2023 Episodic Other ear and sense organ disorders (1 source) Tinnitus, unspecified ear; Translations: [Tinnitus, unspecified] 03-18-2023 Episodic Other infections; including parasitic (9 sources) History of human papilloma virus infection; Translations: [Personal history of other infectious and parasitic diseases] 08-26-2022 Episodic Comment on above: 2018 neg colp @ [facility]. Neg pap and HPV 2021. rpt 3 2018 neg colp @ [facility]. Neg pap and HPV 2021. rpt : Other infections; including parasitic (3 sources) Personal history of other infectious and parasitic diseases; Translations: [Personal history of other infectious and parasitic diseases] Episodic Other screening for suspected conditions (not mental disorders or infectious disease) (1 source) Encounter for screening mammogram for malignant neoplasm of breast; Translations: [Encounter for screening mammogram for malignant neoplasm of breast] Onset: 09-10-2024 Episodic Other upper respiratory infections (1 source) Acute sinusitis; Translations: [Acute sinusitis, unspecified] 08-06-2024 Episodic Residual codes; unclassified (1 source) Tobacco use and exposure - finding; Translations: [Tobacco use] 09-14-2024 Episodic Past or Other Problems Problem Classification Problem Date Documented Da te Episodic/Chronic Gastritis and duodenitis (1 source) Acute gastritis without bleeding; Translations: [Acute gastritis without bleeding] Onset: 01-05-2024 Episodic Other aftercare (1 source) Encounter for follow-up examination after completed treatment for conditions other than malignant neoplasm; Translations: [Encounter for follow-up examination after completed treatment for conditions other than malignant neoplasm] Onset: 04-05-2024 Episodic Results Test Name Value Interpretation Reference Range Facility Urgent Care Visit Reporton 0 08-06-2024 Urgent Care Visit Report [facility] [address], [address] [place] [address] OFFICE VISIT Date of Service: 08/06/24 MR#: [id number] Acct: [id number] Name: UMA GELLER Rep #: [id number] : 1960 Provider: DEEPTI Jara Age/Sex: 63/F Location: [facility] Status: Signed Intake Vital Signs 12/06/23 19:54 08/06/24 10:42 Height 5 ft 5 in BP 112/76 Blood Pressure Location Lt brachial Position Sitting Respiration 16 Pulse 81 Pulse Source NIBP Temp 97.8 F Temp Source Oral Pulse Oximetry (%) 98 Oxygen Delivery Method room air Intake Visit Reasons: SINUS CONGESTION Chief Complaint: congest, face pain, BROWN, nausea Seed Cutter Required: No Is patient in pain?: Yes Allergies codeine Allergy (Intermediate, Verified 08/06/24 10:43) Nausea/Vom/Diarrhea Sulfa (Sulfonamide Antibiotics) Adverse Reaction (Verified 08/06/24 10:43) Nausea/Vom/Diarrhea Is last menstrual period known: No Post menopausal: Yes Patient : No Have you fallen in the past year?: No Nurse's Note: congest, face pain, BROWN, nausea x 6 days worsening. denies fever, ST, cough. unsure of allergies [facility] Medical History Tinnitus Surgical History History of bilateral ligation of fallopian tubes S/P tonsillectomy Delivery by section Family History Other Cancer Heart disease Social History household members: family current occupational status: retired Smoking Status: Light Smoker (<10/day) alcohol intake: never substance use type: does not use what type of physical activity do you participate in: walking frequency: 1-2 times per week seatbelt use: always do you feel safe at home: Yes additional social history: Female Reproductive History Menstrual Ab induced: 2 HPI HPI Chief Complaint: congest, face pain, BROWN, nausea Details: UMA GELLER, is a 63 F who presents to the office today for complaint of sinus congestion/pressure and pain for the past 6 to 7 days. Patient denies hemoptysis, shortness of breath or difficult breathing. No fever, chills, sweats. No nausea, vomiting or diarrhea. No loss of taste or smell. No other associated symptoms or alleviating/aggravati ng factors. ROS Const Constitutional: No other (as above) Exam Const General: cooperative and healthy appearing HENOK Head: normal to inspection Ears: hearing grossly normal bilaterally, TM's normal bilaterally and EAC's normal Nose: nasal discharge purulent Face and sinus: sinus tenderness frontal and maxillary Mouth: oral mucosae normal Throat: abnormal tonsil bilaterally erythema and hypertrophy 1+ and postnasal drainage Resp Effort Inspection: normal respiratory effort Auscultation: Bilateral: Clear to Auscultation Cardio Palpation: normal PMI Rate: regular rate Rhythm: regular rhythm Neuro General: patient alert and CN's II-XI intact bilaterally Psych Appearance: grossly normal Mental Status: mental status grossly normal Coding Level of Care Code Off vis,new,level 3 Diagnoses Acute sinusitis J01.90 Assessment and Plan Assessment and Plan (1) Acute sinusitis: Status: Acute Plan: Augmentin as prescribed today. Encouraged to get plenty of rest, drink lots of clear liquids, and use Tylenol or Ibuprofen (unless contraindicated) for fever and comfort. Patient also educated on other symptomatic management techniques. To be seen in 7-10 days if no improvement; sooner if worsening of symptoms. Patient advised of potential red flags and when appropriate to report to the ED. Patient verbalized understanding and agreement with all the above. Medications: New amoxicillin-pot clavulanate 875-125 mg 1 TAB PO Q12H 10 days 20 tabs 0RF J01.90 - Acute sinusitis, unspecified Clinical Quality Measures Falls Risk Screening/Assistive Devices Have you fallen in the past year?: No 08/06/24 1050 Date Keith Díaz Signature: Date (if applicable) CC: Normal [facility] Anion gap in Serum or Plasma Ordered By: Walt Flores on 06-09-2024 Anion gap [Moles/Vol] 12 mmol/L 5-15 [facility] BUN/creatinine ratioOrdered By: Walt Flores on 06-09-2024 Urea nitrogen/Creatinine [Mass ratio] 16.9 mg/mg 10-20 [facility] Bilirubin, totalOrdered By: Walt Flores on 06-09-2024 Bilirubin [Mass/Vol] 0.65 mg/dL 0.00-1.30 [facility] Calculated very low density lipoprotein (VLDL) cholesterol measurementOrdered By: Walt Flores on 06-09-2024 Calculated very low density lipoprotein (VLDL) cholesterol measurement 17 mg/dL -40 [facility] VLDL Cholesterol 17 mg/dL -40 [facility] Carbon dioxide, total [Moles /volume] in Central venous bloodOrdered By: Walt Flores on 06-09-2024 CO2 [Moles/Vol] 25.9 mmol/L 21.0-32.0 [facility] Chloride assayOrdered By: Deepti Flores on 06-09-2024 Chloride [Moles/Vol] 102 mmol/L 98-108 [facility] Comprehensive Metabolic Prof ilon 06-09-2024 Albumin [Mass/Vol] 4.6 g/dL Normal 3.4-4.8 [facility] Comment on above: Performed By: #### L 500.4050, L500.4100 ####[facility] [address] [place], [address] Albumin/Globulin [Mass ratio] 1.7 {ratio} Normal 0.9-2.4 [facility] Comment on above: Performed By: #### L 500.4050, L500.4100 ####[facility] [address] [place], [address] ALK PHOS 79 U/L Normal 35-104 [facility] Comment on above: Performed By: #### L 500.4050, L500.4100 ####[facility] [address] [place], [address] ALT [Catalytic activity/Vol] 12 U/L Normal <=34 [facility] Comment on above: Performed By: #### L 500.4050, L500.4100 ####[facility] [address] [place], [address] AST [Catalytic activity/Vol] 19 U/L Normal <=31 [facility] Comment on above: Performed By: #### L 500.4050, L500.4100 ####[facility] [address] [place], [address] Bilirubin [Mass/Vol] 0.65 mg/dL Normal 0.00-1.30 [facility] Comment on above: Performed By: #### L 500.4050, L500.4100 ####[facility] [address] [place], [address] BUN/CRE 16.9 RATIO Normal 10-20 [facility] Comment on above: Performed By: #### L 500.4050, L500.4100 ####[facility] [address] [place], [address] Calcium [Mass/Vol] 9.5 mg/dL Normal 7.6-11.0 [facility] Comment on above: Performed By: #### L 500.4050, L500.4100 ####[facility] [address] [place], [address] Chloride [Moles/Vol] 102 mmol/L Normal 98-108 [facility] Comment on above: Performed By: #### L 500.4050, L500.4100 ####[facility] [address] [place], [address] CO2 [Moles/Vol] 25.9 mmol/L Normal 21.0-32.0 [facility] Comment on above: Performed By: #### L 500.4050, L500.4100 ####[facility] [address] [place], [address] Creatinine [Mass/Vol] 0.79 mg/dL Normal 0.70-1.20 [facility] Comment on above: Performed By: #### L 500.4050, L500.4100 ####[facility] [address] [place], [address] GAP 12 Normal 5-15 [facility] Comment on above: Performed By: #### L 500.4050, L500.4100 ####[facility] [address] [place], [address] GFR/1.73 sq M.predicted among non-blacks MDRD (S/P/Bld) [Vol rate/Area] 83 mL/min/{1.73_m2} Normal >60 [facility] Comment on above: Result Comment: mL/m in/1.73m2 CKD-EPI Creatinine Equation (2020) Performed By: #### L 500.4050, L500.4100 ####[facility] [address] [place], [address] Globulin (S) [Mass/Vol] 2.7 g/dL Normal 2.2-4.[address] [facility] Comment on above: Performed By: #### L 500.4050, L500.4100 ####[facility] [address] [place], [address] Glucose [Mass/Vol] 92 mg/dL Normal 70-99 [facility] Comment on above: Performed By: #### L 500.4050, L500.4100 ####[facility] [address] [place], [address] Potassium [Moles/Vol] 4.2 mmol/L Normal 3.3-5.1 [facility] Comment on above: Performed By: #### L 500.4050, L500.4100 ####[facility] [address] [place], [address] Sodium [Moles/Vol] 139 mmol/L Normal 133-145 [facility] Comment on above: Performed By: #### L 500.4050, L500.4100 ####[facility] [address] [place], [address] T PROT 7.3 g/dL Normal 5.9-8.4 [facility] Comment on above: Performed By: #### L 500.4050, L500.4100 ####[facility] [address] [place], [place], [address] Urea nitrogen [Mass/Vol] 13 mg/dL Normal 4-19 [facility] Comment on above: Performed By: #### L 500.4050, L500.4100 ####[facility] [address] [place], [place], [address] GFR/1.73 sq M.predicted jenny g non-blacks MDRD (S/P/Bld) [Vol rate/Area]Ordered By: Walt Flores on 06-09-2024 Estimated GFR (MDRD) Non-Af Amer 83 >60 [facility] Comment on above: mL/min/1.73m2 CKD-EP I Creatinine Equation (2020) Glomerular filtration rate ( GFR) estimation/1.73 sq m using serum, plasma, or whole bOrdered By: Walt Flores on 06-09-2024 GFR/1.73 sq M.predicted among non-blacks MDRD (S/P/Bld) [Vol rate/Area] 83 mL/min/{1.73_m2} >60 [facility] Comment on above: mL/min/1.73m2 CKD-EP I Creatinine Equation (2020) LDL calc ser/plasOrdered By: Walt Flores on 06-09-2024 Cholesterol in LDL [Mass/Vol] 114 mg/dL [facility] Comment on above: Avpgwxtbpk=856-426 m g/dL & Higher Lcbp=791 mg/dL or greater LDL Cholesterol, Calculated 114 mg/dL [facility] Comment on above: Yyshctpkps=327-123 m g/dL & Higher Gicv=029 mg/dL or greater Laboratory - Chemistry and C hemistry - challengeOrdered By: Walt Flores on 06-09-2024 AST [Catalytic activity/Vol] 19 U/L <32 [facility] Lipid Profileon 06-09-2024 CHOL:HDL 2.98 Normal [facility] Comment on above: Performed By: #### L 500.4050, L500.4100 ####[facility] [address] [place], [address] Cholesterol [Mass/Vol] 198 mg/dL Normal <=200 [facility] Comment on above: Result Comment: Chol esterol level, Desirable <200 mg/dL Borderline high cholesterol 200-239 mg/dL High cholesterol >=240 mg/dL Recommendations of the NCEP Adult Treatment Panel for the following risk-cutoff thresholds for the [place] population. Performed By: #### L 500.4050, L500.4100 ####[facility] [address] [place], [address] Cholesterol in HDL [Mass/Vol] 66 mg/dL Normal [facility] Comment on above: Result Comment: Candida onal Cholesterol Education Program (NCEP) guidelines: <40 mg/dL: Low HDL-cholesterol (major risk factor for CHD) >= 60 mg/dL: High HDL-cholesterol (negative risk factor for CHD) HDL-cholesterol is affected by a number of factors, e.g. smoking, exercise, hormones, sex and age. Performed By: #### L 500.4050, L500.4100 ####[facility] [address] [place], [address] Cholesterol in LDL [Mass/Vol] 114 mg/dL Normal [facility] Comment on above: Result Comment: Bord nwzzsk=838-185 mg/dL Higher Jeyb=935 mg/dL or greater Performed By: #### L 500.4050, L500.4100 ####[facility] [address] [place], [address] Cholesterol in VLDL [Mass/Vol] 17 mg/dL Normal 5-40 [facility] Comment on above: Performed By: #### L 500.4050, L500.4100 ####[facility] [address] [place], [address] Triglyceride [Mass/Vol] 87 mg/dL Normal [facility] Comment on above: Result Comment: The drugs N-Acetylcysteine and Metamizole may falsely depress this assay. Normal range: <150 mg/dL Borderline High: 150-199 mg/dL High: 200-499 mg/dL Very High: >500 mg/dL Performed By: #### L 500.4050, L500.4100 ####[facility] [address] [place], [address] Potassium (Unsp spec) [Mass/ Vol]Ordered By: Walt Flores on 06-09-2024 Potassium [Moles/Vol] 4.2 mmol/L 3.3-5.1 [facility] Potassium measurement (mass/ volume)Ordered By: Walt Flores on 06-09-2024 Potassium (Unsp spec) [Mass/Vol] 4.2 mmol/L 3.3-5.1 [facility] Screening total cholesterol/ high density lipoprotein (HDL) cholesterol ratioOrdered By: Walt Flores on 06-09-2024 Cholesterol.total/Asuncion sterol in HDL [Mass ratio] 2.98 {ratio} [facility] Serum creatinine measurement (mass/volume)Ordered By: Walt Flores on 06-09-2024 Creatinine [Mass/Vol] 0.79 mg/dL 0.70-1.20 [facility] Serum globulin measurementOr dered By: Walt Flores on 06-09-2024 Globulin (S) [Mass/Vol] 2.7 g/dL 2.2-4.2 [facility] Serum glucose measurement (m ass/volume)Ordered By: Walt Flores on 06-09-2024 Glucose [Mass/Vol] 92 mg/dL 70-99 [facility] Serum or plasma alanine pittman otransferase (ALT) measurementOrdered By: Walt Flores on 06-09-2024 ALT [Catalytic activity/Vol] 12 U/L <35 [facility] Serum or plasma albumin connie urement (mass/volume)Ordered By: Walt Flores on 06-09-2024 Albumin [Mass/Vol] 4.6 g/dL 3.4-4.8 [facility] Serum or plasma albumin/glob ulin mass ratioOrdered By: Walt Flores on 06-09-2024 Albumin/Globulin [Mass ratio] 1.7 {ratio} 0.9-2.4 [facility] Serum or plasma alkaline alfredo sphatase measurementOrdered By: Walt Flores on 06-09-2024 ALP [Catalytic activity/Vol] 79 U/L 35-104 [facility] Serum or plasma calcium connie urement (mass/volume)Ordered By: Walt Flores on 06-09-2024 Calcium [Mass/Vol] 9.5 mg/dL 7.6-11.0 [facility] Serum or plasma cholesterol in HDL measurement (mass/volume)Ordered By: Walt Flores on 06-09-2024 Cholesterol in HDL [Mass/Vol] 66 mg/dL >40 [facility] Comment on above: National Cholesterol Education Program (NCEP) guidelines:<40 mg/dL: Low HDL-cholesterol (major risk factor for CHD)>= 60 mg/dL: High HDL-cholesterol (negative risk factor for CHD)HDL-cholesterol is affected by a number of factors, e.g. smoking, exercise, hormones, sex and age. Serum or plasma cholesterol measurement (mass/volume)Ordered By: Walt Flores on 06-09-2024 Cholesterol [Mass/Vol] 198 mg/dL <201 [facility] Comment on above: Cholesterol level, D esirable <200 mg/dLBorderline high cholesterol 200-239 mg/dLHigh cholesterol >=240 mg/dLRecommendations of the NCEP Adult Treatment Panel for the following risk-cutoff thresholds for the [place] population. Serum or plasma urea nitroge n measurement (mass/volume)Ordered By: Walt Flores on 06-09-2024 Urea nitrogen [Mass/Vol] 13 mg/dL 4-19 [facility] Sodium levelOrdered By: Walt Flores on 06-09-2024 Sodium [Moles/Vol] 139 mmol/L 133-145 [facility] Total proteinOrdered By: Yana Flores on 06-09-2024 Protein [Mass/Vol] 7.3 g/dL 5.9-8.4 [facility] Triglycerides measurementOrd ered By: Walt Flores on 06-09-2024 Triglyceride [Mass/Vol] 87 mg/dL <199 [facility] Comment on above: The drugs N-Acetylcy steine and Metamizole may falsely depress this assay. Normal range: <150 mg/dLBorderline High: 150-199 mg/dLHigh: 200-499 mg/dLVery High: >500 mg/dL Stress Reporton 12-24-2023 Stress Report [facility] [address] [place] [address] MR#: [id number] Acct: [id number] Name: UMA GELLER Rep #: [id number] : 1960 63 From: Prateek Metcalf MD Primary Care: Dr. Walt Flores MD Status: REG CLI Referring Dr: Walt Flores MD Sex: F C Stress Test Report Exercise myocardial perfusion stress test. 63-year-old lady with a history of chest pain Stress protocol: Resting EKG demonstrates normal sinus rhythm with a rate of 67 bpm resting blood pressure is 124/84 mmHg. The patient exercised according to the regular Ejrod protocol for a total duration of 6 minutes attaining a maximum heart rate of 141 bpm which was 90% of maximum predicted heart rate; the maximum workload was 7 metabolic equivalents. At rest there were no ST or T wave changes noted to suggest ischemia and at peak exercise upsloping ST changes only were noted which did not meet the criteria for ischemia. No clinical angina was noted the test was terminated due to the target heart rate being achieved/fatigue. The peak blood pressure was 144/72 mmHg. Rate-pressure product was 20,300. Myocardial perfusion protocol. 10.3 mCi of technetium 99m sestamibi was injected at rest. The patient exercised according to regular Jerod protocol for total duration of 6 minutes and at peak exercise 31.5 mCi of technetium 99m sestamibi was injected stress images were obtained stress and rest images were reconstructed in comparing the short axis vertical long and horizontal long axis. Gated images were also obtained. Perfusion SPECT analysis: Review of the stress images demonstrate normal uptake of tracer noted in all areas of the myocardium. The resting images similarly demonstrate normal uptake of tracer noted in all areas of the myocardium. No areas of reversibility are noted to suggest ischemia no previous infarct was noted. Gated SPECT analysis: The gated ejection fraction is 82%. Conclusion: Normal exercise myocardial perfusion stress test at a moderate workload Preserved ejection fraction. 12/24/23 1650 Date Prateek Metcalf MD CC: Dr. Walt Flores MD Date Dictated: 12/24/231647 Date Transcribed: 12/24/231647 [employer] Servicer: [place] Signed Normal [facility] Abdomen Limitedon 12-09-2023 Abdomen Limited [facility] [address] [place] [address] Abdomen Limited MR#: [id number] Acct: [id number] Name: UMA GELLER Rep #: [id number] : 1960 F 63 From: Rick Goodrich MD PCP: Dr. Walt Flores MD Status: REG CLI Study: Abdomen Limited Date of Exam: 12/09/23 Exam# [id number] Ordering Dr: Jl Berry NP FLANGE MACHINE OPERATOR -[id number] INDICATION: RUQ pain and gastritis. EXAMINATION: Ultrasound US Abdomen Limited (quadrant) TECHNIQUE: Dozier scale and color doppler imaging was performed of the right upper quadrant. COMPARISON: Prior study dated: CT abdomen and pelvis 12/06/2023 __ FINDINGS: LIVER: There is normal echotexture. No focal hepatic lesion. There is no free fluid. GALLBLADDER AND BILIARY TREE: No shadowing gallstone, pericholecystic fluid or gallbladder wall thickening is demonstrated. The proximal common bile duct measures 3 mm, which is within normal limits for the patient''s age. Sonographic Dahl''s sign: Negative. PANCREAS: No focal abnormality is demonstrated in the pancreas. No pancreatic ductal dilatation. RIGHT KIDNEY: 8.8 cm long axis. No hydronephrosis. US/Abdomen Limited IMPRESSION: No acute sonographic abnormality is demonstrated in the right upper quadrant. Electronically Signed: Rick Goodrich MD at 19:26 EDT Reading Location ID and State: [facility] / [place] Tel , Service support , CC: Jl NULL McMorrow; Dr. Walt Flores MD T[employer] Servicer: Signed Normal [facility] 12 Lead EKGon 12-06-2023 12 Lead EKG [facility] [address] [place] [address] 12 Lead EKG 12/06/231999 MR#: [id number] Acct: [id number] Name: UMA GELLER Rep #: [id number] : 1960 63 From: Florencio Farooq MD Attending Dr: Status: DEP ER Ordering Dr: Morro Cano DO Date: 12/06/23 Location: ED Sex: F C Admitted: Test Reason : CP Blood Pressure : / mmHG Vent. Rate : 070 BPM Atrial Rate : 070 BPM P-R Int : 154 ms QRS Dur : 074 ms QT Int : 394 ms P-R-T Axes : 051 019 022 degrees QTc Int : 425 ms Normal sinus rhythm Normal ECG Confirmed by Florencio Farooq ([id number]), editor managing director UMAIR MELENDEZ ([id number]) on 12/08/2023 9:39:20 AM Referred By: TL Confirmed By:Florencio Farooq 12/08/23 0939 Date Florencio Farooq MD CC: Dr. Walt Flores MD; Dr. Morro Cano DO Signed Normal [facility] Abdomen/Pelvis W IV Cont ONL Yon 12-06-2023 Abdomen/Pelvis W IV Cont ONLY [facility] [address] [place], [place] [address] Abdomen/Pelvis W IV Cont ONLY MR#: [id number] Acct: [id number] Name: UMA GELLER Rep #: [id number] : 1960 F 63 From: Danielito Noble DO PCP: Dr. Walt Flores MD Status: REG ER Study: Abdomen/Pelvis W IV Cont ONLY Date of Exam: Exam# [id number] Ordering Dr: Morro Cano DO [id number] STUDY: CT ABDOMEN AND PELVIS WITH CONTRAST REASON FOR EXAM: Female, 63 years old. RUQ pain RADIATION DOSAGE (If Supplied By Facility): CTDIvol = ( 6.58 ) mGy, DLP = ( 295.90 ) mGycm TECHNIQUE: Transaxial images were obtained from the dome of the diaphragm to the symphysis pubis without oral contrast. IV 75mL Isovue-370 was administered. Sagittal and coronal images were reconstructed. Individualized dose optimization techniques were used for this CT. COMPARISON: None. FINDINGS: The visualized lung bases demonstrate calcified granulomas in. The visualized portions of the heart are within normal limits. Normal liver. Normal gallbladder and extrahepatic biliary system. Normal spleen. Normal pancreas. Normal bilateral adrenal glands. Normal right kidney. Normal left kidney. Normal visualized stomach. Normal small intestine. Diverticulosis of the colon. The appendix is visualized and appears normal. Normal abdominal aorta. Normal inferior vena cava. Normal retroperitoneum. Normal urinary bladder. Normal abdominal wall. Normal osseous structures. CT/Abdomen/Pelvis W IV Cont ONLY IMPRESSION: Mild colonic diverticulosis. Electronically Signed: Danielito Noble DO at 0:03 EDT Reading Location ID and State: [facility] / [place] Tel [phone], Service support , CC: Dr. Walt Flores MD; Dr. Morro Cano DO T[employer] Servicer: Signed Normal [facility] Basic Metabolic Profile (BMP )on 12-06-2023 BUN/CRE 18.9 RATIO Normal 12-13 [facility] Comment on above: Order Comment: 1Y Performed By: #### L 501.6001, L500.2500, L100.0100 ####[facility] [address] [place], [address] CA,Total 9.3 mg/dL Normal 8.5-10.1 [facility] Comment on above: Order Comment: 1Y Performed By: #### L 501.5425, L500.2500, L100.0100 ####[facility] [address] [place], [address] Chloride [Moles/Vol] 106 mmol/L Normal 98-107 [facility] Comment on above: Order Comment: 1Y Performed By: #### L 501.5425, L500.2500, L100.0100 ####[facility] [address] [place], [address] CO2 [Moles/Vol] 29.0 mmol/L Normal 21.0-32.0 [facility] Comment on above: Order Comment: 1Y Performed By: #### L 501.5425, L500.2500, L100.0100 ####[facility] [address] [place], [address] Creatinine [Mass/Vol] 0.79 mg/dL Normal 0.55-1.02 [facility] Comment on above: Order Comment: 1Y Result Comment: The validity of the calculated GFR GFRAA in patients over 70 years has not been determined. Clinical correlation is essential. Performed By: #### L 501.5425, L500.2500, L100.0100 ####[facility] [address] [place], [address] ECRCL 63.09 ml/min Normal [facility] Comment on above: Order Comment: 1Y Performed By: #### L 501.5425, L500.2500, L100.0100 ####[facility] [address] [place], [address] EST GFR - AA 94 mL/min Normal >60 [facility] Comment on above: Order Comment: 1Y Result Comment: Afri can Estonian GFR Calc Performed By: #### L 501.5425, L500.2500, L100.0100 ####[facility] [address] [place], [address] GAP 6 Normal 5-15 [facility] Comment on above: Order Comment: 1Y Performed By: #### L 501.5425, L500.2500, L100.0100 ####[facility] [address] [place], [address] GFR/1.73 sq M.predicted among non-blacks MDRD (S/P/Bld) [Vol rate/Area] 77 mL/min/{1.73_m2} Normal >60 [facility] Comment on above: Order Comment: 1Y Result Comment: Non- GFR Calc Performed By: #### L 501.5425, L500.2500, L100.0100 ####[facility] [address] [place], [address] Glucose [Mass/Vol] 87 mg/dL Normal 74-106 [facility] Comment on above: Order Comment: 1Y Performed By: #### L 501.5425, L500.2500, L100.0100 ####[facility] [address] [place], [address] Potassium [Moles/Vol] 3.7 mmol/L Normal 3.5-5.1 [facility] Comment on above: Order Comment: 1Y Performed By: #### L 501.5425, L500.2500, L100.0100 ####[facility] [address] [place], [address] Sodium [Moles/Vol] 140 mmol/L Normal 136-145 [facility] Comment on above: Order Comment: 1Y Performed By: #### L 501.5425, L500.2500, L100.0100 ####[facility] [address] [place], [address] Urea nitrogen [Mass/Vol] 15 mg/dL Normal 7-18 [facility] Comment on above: Order Comment: 1Y Performed By: #### L 501.5425, L500.2500, L100.0100 ####[facility] [address] [place], [address] CBC W/Diff, Automatedon 10- 2-2023 Absolute Lymph 2.77 X10 3/uL Normal 0.83-4.51 [facility] Comment on above: Performed By: #### L 501.5425, L500.2500, L100.0100 ####[facility] [address] [place], [address] Absolute Neut 2.1 X10 3/uL Normal 2.0-7.7 [facility] Comment on above: Performed By: #### L 501.5425, L500.2500, L100.0100 ####[facility] [address] [place], [address] Basophils/100 WBC (Bld) 0.5 % Normal 0-1 [facility] Comment on above: Performed By: #### L 501.5425, L500.2500, L100.0100 ####[facility] [address] [place], [address] Eosinophils/100 WBC (Bld) 2.2 % Normal 0-5 [facility] Comment on above: Performed By: #### L 501.5425, L500.2500, L100.0100 ####[facility] [address] [place], [address] Erythrocyte distribution width (RBC) [Ratio] 11.4 % Low 11.6-14.6 [facility] Comment on above: Performed By: #### L 501.5425, L500.2500, L100.0100 ####[facility] [address] [place], [address] Hematocrit (Bld) [Volume fraction] 39.3 % Normal 37-47 [facility] Comment on above: Performed By: #### L 501.5425, L500.2500, L100.0100 ####[facility] [address] [place], [address] Hemoglobin (Bld) [Mass/Vol] 13.3 g/dL Normal 12.0-15.0 [facility] Comment on above: Performed By: #### L 501.5425, L500.2500, L100.0100 ####[facility] [address] [place], [address] IG% 0.200 Normal 0.0-0.9 [facility] Comment on above: Result Comment: IG% - Immature Granulocytes (promyelocytes, myelocytes and metamyelocytes) > 1% indicates that a LEFT SHIFT is Present. Performed By: #### L 501.5425, L500.2500, L100.0100 ####[facility] [address] [place], [address] Lymphocytes/100 WBC (Bld) 50.5 % High 19-41 [facility] Comment on above: Performed By: #### L 501.5425, L500.2500, L100.0100 ####[facility] [address] [place], [address] MCH (RBC) [Entitic mass] 32.1 pg High 27.0-32.0 [facility] Comment on above: Performed By: #### L 501.5425, L500.2500, L100.0100 ####[facility] [address] [place], [address] MCHC (RBC) [Mass/Vol] 33.8 g/dL Normal 32-36 [facility] Comment on above: Performed By: #### L 501.5425, L500.2500, L100.0100 ####[facility] [address] [place], [address] MCV (RBC) [Entitic vol] 94.9 fL Normal 81-99 [facility] Comment on above: Performed By: #### L 501.5425, L500.2500, L100.0100 ####[facility] [address] [place], [address] Monocytes/100 WBC (Bld) 9.3 % Normal 0-[address] [facility] Comment on above: Performed By: #### L 501.5425, L500.2500, L100.0100 ####[facility] [address] [place], [address] Neutrophils/100 WBC (Bld) 37.3 % Low 47-70 [facility] Comment on above: Performed By: #### L 501.5425, L500.2500, L100.0100 ####[facility] [address] [place], [address] Nucleated RBC (Bld) [#/Vol] 0 10*3/uL Normal 0-5 [facility] Comment on above: Performed By: #### L 501.5425, L500.2500, L100.0100 ####[facility] [address] [place], [address] Platelet mean volume (Bld) [Entitic vol] 9.4 fL Normal 6.2-12.0 [facility] Comment on above: Performed By: #### L 501.5425, L500.2500, L100.0100 ####[facility] [address] [place], [address] Platelets (Bld) [#/Vol] 185 10*3/uL Normal 150-450 [facility] Comment on above: Performed By: #### L 501.5425, L500.2500, L100.0100 ####[facility] [address] [place], [address] RBC (Bld) [#/Vol] 4.14 10*6/uL Low 4.2-5.4 [facility] Comment on above: Performed By: #### L 501.5425, L500.2500, L100.0100 ####[facility] [address] [place], [address] RDW SD 39.7 fl Normal 35.1-43.9 [facility] Comment on above: Performed By: #### L 501.5425, L500.2500, L100.0100 ####[facility] [address] [place], [address] WBC (Bld) [#/Vol] 5.5 10*3/uL Normal 4.4-11.0 [facility] Comment on above: Performed By: #### L 501.5425, L500.2500, L100.0100 ####[facility] [address] [place], [address] Chest PA and Lateralon 12-05 Chest PA and Lateral [facility] [address] [place] [address] Chest PA and Lateral MR#: [id number] Acct: [id number] Name: UMA GELLER Rep #: [id number] : 1960 F 63 From: Danielito Noble DO PCP: Dr. Walt Flores MD Status: [facility] ER Study: Chest PA and Lateral Date of Exam: 12/06/23 Exam# [id number] Ordering Dr: Morro Cano DO [id number] INDICATION: chest pain EXAMINATION/TECHNIQUE : X-RAY - XR Chest 2 Views COMPARISON: March 30, 2019 __ FINDINGS: LINES/DEVICES: None. LUNGS: No consolidation, edema or effusion. No pneumothorax. MEDIASTINUM AND CARDIOVASCULAR STRUCTURES: Cardiac silhouette not enlarged. Central airways and mediastinal contour are unremarkable. BONES AND SOFT TISSUES: Unremarkable. RAD/Chest PA and Lateral IMPRESSION: No radiographic evidence of acute cardiopulmonary disease. Electronically Signed: Danielito Noble DO at 20:50 EDT , CC: Dr. Walt Flores MD; Dr. Morro Cano DO [employer] Servicer: Signed Normal [facility] D-Dimer Quantitative (DVT/PE )on 12-06-2023 D-DIMER QUANT 0.27 FEU/ug/m Normal 0.27-0.49 [facility] Comment on above: Result Comment: NORM AL D-Dimer level (<0.50) indicates no DVT or PE. Performed By: #### L 300.8000 #### [facility] [address] [place], [place], [address] Emergency Department Summary on 12-06-2023 Emergency Department Summary [facility] Medical Records Department [address] [place] [address] Emergency Department Summary 12/06/23 MR#: [id number] Acct: [id number] Name: UMA GELLER Rep #: [id number] : 1960 63 From: Morro Cano DO PCP: Dr. Walt Flores MD Status:[facility] ER Location: ED ADDENDUM by Jose Fine DO on 12/07/23 at 0112 Patient was signed out to me while awaiting the results of the CT scan of her abdomen pelvis. The CT scan revealed no acute finding. On reevaluation the patient is resting comfortably her abdomen remains soft and nonsurgical and vital stable. Therefore at this time with negative cardiac workup as well as normal CT scan of the abdomen and pelvis and stable vitals and improved symptoms I do not feel there is need for admission and patient follow-up with your family doctor as well as GI for further evaluation as an outpatient 12/07/23 0112 Cosigner Signature (if applicable): cc: Dr. Walt Flores MD * Signed HPI History of Present Illness Chief Complaint: Chest Pain Narrative Narrative: Patient is a 63-year-old female with past medical history of GERD, anxiety, depression, hiatal hernia who presents to the emerged part with chief complaint of reflux symptoms and right sided abdominal pain/back pain. Patient states that she has had these symptoms going on for quite some time now she states that she was on some reflux medication follow-up with her primary care physician was placed on some other reflux medication and noted that recently her symptoms started worsening again. Patient states that if she is up moving around her symptoms seem to be worse and when she is resting her symptoms seem to improved. Patient states that she has had a stress test approximately 5 years ago that was normal at that point time. Patient denies any history of blood clots or travel history denies any recent sick contacts. [facility] Medical History Tinnitus Home Medications ???Medication ???Instructions ???Recorded ???Last Taken ???Type citalopram 20 mg tablet 20 mg PO DAILY depression 03/05/16 03/30/19 History omeprazole 20 mg capsule,delayed 20 mg PO DAILY gerd 11/23/18 03/30/19 History release lorazepam 0.5 mg tablet (Ativan) 0.5 mg PO DAILY PRN 08/13/21 Unknown History atorvastatin 10 mg tablet 10 mg PO QDAY 09/08/23 Unknown History famotidine 40 mg tablet 40 mg PO QHS 12/06/23 Unknown History sucralfate 100 mg/mL oral 10 ml PO 4X/DAY 12/06/23 Unknown History suspension Allergy/AdvReac Type Severity Reaction Status Date / Time codeine Allergy Intermediate Nausea/Vom/ Verified 12/06/23 19:54 Diarrhea Sulfa (Sulfonamide AdvReac Nausea/Vom/ Verified 12/06/23 19:54 Antibiotics) Diarrhea Family History Other Cancer Heart disease Surgical History History of bilateral ligation of fallopian tubes S/P tonsillectomy Delivery by section Social History household members: family current occupational status: retired Smoking Status: Light Smoker (<10/day) alcohol intake: never substance use type: does not use what type of physical activity do you participate in: walking frequency: 1-2 times per week seatbelt use: always do you feel safe at home: Yes additional social history: ROS ROS ED ROS Narrative Constitutional: Denies any fevers, chills, headaches, lightness, dizziness Eyes: Denies change in vision double vision blurry Cardiovascular: Denies chest pain or palpitations Respiratory: Denies coughing wheezing shortness of breath Abdomen: Complains of nausea as noted above denies vomiting or diarrhea : Denies pain phonation, hematuria and polyuria Neurological: Denies numbness, weakness, tingling Musculoskeletal: Complains of some back pain as noted above Skin: Denies rashes or lesions EXAM Physical Exam Narrative Exam Narrative: General: Patient lying in bed rest comfortably did not appear to be acute distress Head: Atraumatic, normocephalic Eyes: PERRL bilateral, EOMI bladder, no conjunctival injection noted Neck: Soft, supple, trach midline Cardiovascular: Regular rate and rhythm no murmurs gallops rubs noted Respiratory: Clear to auscultation bilaterally Abdomen: Soft, tender to palpation in the right upper quadrant no rebound or guarding on exam, bowel sounds present MS 4 Extremities: +5/5 strength noted in the bilateral lower extremities, no pedal edema exam, radial pulses +2/4 in the bilateral Neurological: Patient following commands knew that she was at [facility] years 2023 Skin: Warm, dry, intact Const Vital Signs: 12/06/23 19:54 10 (more content not included)... Normal [facility] L501.4020on 12-06-2023 TROPONIN-I HS < 3 Low 3.0-54.0 [facility] Comment on above: Result Comment: Plea se Note: New Test Units and Gender Specific Reference Ranges. For more information see Policy Stat Procedure [place] High Sensitivity Troponin (TNIH) and attachments. Performed By: #### L 501.4020 #### [facility] [place], [address] L501.5425on 12-06-2023 TROPONIN-I HS < 3 Low 3.0-54.0 [facility] Comment on above: Order Comment: 1Y Result Comment: Jos seals Note: New Test Units and Gender Specific Reference Ranges. For more information see Policy Stat Procedure [place] High Sensitivity Troponin (TNIH) and attachments. Performed By: #### L 501.5425, L500.2500, L100.0100 ####[facility] [address] [place], [address] Liver Profileon 12-06-2023 Albumin [Mass/Vol] 4.0 g/dL Normal 3.2-5.0 [facility] Comment on above: Performed By: #### L 500.3400 #### [facility] [address] [place], [address] ALK P 67 U/L Normal 45-117 [facility] Comment on above: Performed By: #### L 500.3400 #### [facility] [address] [place], [address] ALT [Catalytic activity/Vol] 16 U/L Normal 13-56 [facility] Comment on above: Performed By: #### L 500.3400 #### [facility] [address] [place], [address] AST [Catalytic activity/Vol] 15 U/L Normal 15-37 [facility] Comment on above: Performed By: #### L 500.3400 #### [facility] [address] [place], [address] Bilirubin [Mass/Vol] 0.40 mg/dL Normal 0.20-1.00 [facility] Comment on above: Result Comment: For patients on eltrombopag therapy, use of Dimension [place] TBIL is not recommended. Performed By: #### L 500.3400 #### [facility] [address] [place], [address] Bilirubin.direct [Mass/Vol] 0.12 mg/dL Normal 0.00-0.30 [facility] Comment on above: Performed By: #### L 500.3400 #### [facility] [address] [place], [address] Globulin (S) [Mass/Vol] 2.7 g/dL Normal 2.2-4.2 [facility] Comment on above: Performed By: #### L 500.3400 #### [facility] [address] [place], [address] T PROT 6.7 g/dL Normal 6.4-8.2 [facility] Comment on above: Performed By: #### L 500.3400 #### [facility] [address] [place], [address] CBC W/Diff, Automatedon 10-0 8-4 Absolute Lymph 1.92 X10 3/uL Normal 0.83-4.51 [facility] Comment on above: Order Comment: Order Date: 12/02/23 Order Info: 0184-1 - CBCD Performed By: #### L 501.2450, L100.0100, L500.4050 #### [facility] [address] [place], [address] Absolute Neut 2.8 X10 3/uL Normal 2.0-7.7 [facility] Comment on above: Order Comment: Order Date: 12/02/23 Order Info: 0184-1 - CBCD Performed By: #### L 501.2450, L100.0100, L500.4050 #### [facility] [address] [place], [address] Basophils/100 WBC (Bld) 0.6 % Normal 0-1 [facility] Comment on above: Order Comment: Order Date: 12/02/23 Order Info: 0184-1 - CBCD Performed By: #### L 501.2450, L100.0100, L500.4050 #### [facility] [address] [place], [address] Eosinophils/100 WBC (Bld) 1.2 % Normal 0-5 [facility] Comment on above: Order Comment: Order Date: 12/02/23 Order Info: 0184- - CBCD Performed By: #### L 501.2450, L100.0100, L500.4050 #### [facility] [address] [place], [address] Erythrocyte distribution width (RBC) [Ratio] 11.5 % Low 11.6-14.6 [facility] Comment on above: Order Comment: Order Date: 12/02/23 Order Info: 0184- - CBCD Performed By: #### L 501.2450, L100.0100, L500.4050 #### [facility] [address] [place], [address] Hematocrit (Bld) [Volume fraction] 43.7 % Normal 37-47 [facility] Comment on above: Order Comment: Order Date: 12/02/23 Order Info: 0184- - CBCD Performed By: #### L 501.2450, L100.0100, L500.4050 #### [facility] [address] [place], [address] Hemoglobin (Bld) [Mass/Vol] 14.8 g/dL Normal 12.0-15.0 [facility] Comment on above: Order Comment: Order Date: 12/02/23 Order Info: 0184- - CBCD Performed By: #### L 501.2450, L100.0100, L500.4050 #### [facility] [address] [place], [address] IG% 0.200 Normal 0.0-0.9 [facility] Comment on above: Order Comment: Order Date: 12/02/23 Order Info: 0184-1 - CBCD Result Comment: IG% - Immature Granulocytes (promyelocytes, myelocytes and metamyelocytes) > 1% indicates that a LEFT SHIFT is Present. Performed By: #### L 501.2450, L100.0100, L500.4050 #### [facility] [address] [place], [address] Lymphocytes/100 WBC (Bld) 37.4 % Normal 19-41 [facility] Comment on above: Order Comment: Order Date: 12/02/23 Order Info: 0184-1 - CBCD Performed By: #### L 501.2450, L100.0100, L500.4050 #### [facility] [address] [place], [address] MCH (RBC) [Entitic mass] 32.3 pg High 27.0-32.0 [facility] Comment on above: Order Comment: Order Date: 12/02/23 Order Info: 0184-1 - CBCD Performed By: #### L 501.2450, L100.0100, L500.4050 #### [facility] [address] [place], [address] MCHC (RBC) [Mass/Vol] 33.9 g/dL Normal 32-36 [facility] Comment on above: Order Comment: Order Date: 12/02/23 Order Info: 0184-1 - CBCD Performed By: #### L 501.2450, L100.0100, L500.4050 #### [facility] [address] [place], [address] MCV (RBC) [Entitic vol] 95.4 fL Normal 81-99 [facility] Comment on above: Order Comment: Order Date: 12/02/23 Order Info: 0184-1 - CBCD Performed By: #### L 501.2450, L100.0100, L500.4050 #### [facility] [address] [place], [address] Monocytes/100 WBC (Bld) 7.2 % Normal 0-[address] [facility] Comment on above: Order Comment: Order Date: 12/02/23 Order Info: 0184-1 - CBCD Performed By: #### L 501.2450, L100.0100, L500.4050 #### [facility] [address] [place], [address] Neutrophils/100 WBC (Bld) 53.4 % Normal 47-70 [facility] Comment on above: Order Comment: Order Date: 12/02/23 Order Info: 0184-1 - CBCD Performed By: #### L 501.2450, L100.0100, L500.4050 #### [facility] [address] [place], [address] Nucleated RBC (Bld) [#/Vol] 0 10*3/uL Normal 0-5 [facility] Comment on above: Order Comment: Order Date: 12/02/23 Order Info: 0184-1 - CBCD Performed By: #### L 501.2450, L100.0100, L500.4050 #### [facility] [address] [place], [address] Platelet mean volume (Bld) [Entitic vol] 10.2 fL Normal 6.2-12.0 [facility] Comment on above: Order Comment: Order Date: 12/02/23 Order Info: 0184-1 - CBCD Performed By: #### L 501.2450, L100.0100, L500.4050 #### [facility] [address] [place], [address] Platelets (Bld) [#/Vol] 213 10*3/uL Normal 150-450 [facility] Comment on above: Order Comment: Order Date: 12/02/23 Order Info: 0184-1 - CBCD Performed By: #### L 501.2450, L100.0100, L500.4050 #### [facility] [address] [place], [address] RBC (Bld) [#/Vol] 4.58 10*6/uL Normal 4.2-5.4 [facility] Comment on above: Order Comment: Order Date: 12/02/23 Order Info: 0184-1 - CBCD Performed By: #### L 501.2450, L100.0100, L500.4050 #### [facility] [address] [place], [address] RDW SD 40.2 fl Normal 35.1-43.9 [facility] Comment on above: Order Comment: Order Date: 12/02/23 Order Info: 0184- - CBCD Performed By: #### L 501.2450, L100.0100, L500.4050 #### [facility] [address] [place], [address] WBC (Bld) [#/Vol] 5.1 10*3/uL Normal 4.4-11.0 [facility] Comment on above: Order Comment: Order Date: 12/02/23 Order Info: 0184- - CBCD Performed By: #### L 501.2450, L100.0100, L500.4050 #### [facility] [address] [place], [address] Comprehensive Metabolic Prof ilon 12-02-2023 Albumin [Mass/Vol] 4.4 g/dL Normal 3.2-5.0 [facility] Comment on above: Order Comment: Order Date: 12/02/23 Order Info: 0786-1 - CMP Order Info: 3040-3 - LIPASE Performed By: #### L 501.2450, L100.0100, L500.4050 #### [facility] [address] [place], [address] Albumin/Globulin [Mass ratio] 1.3 {ratio} Normal 0.9-2.4 [facility] Comment on above: Order Comment: Order Date: 12/02/23 Order Info: 0786-1 - CMP Order Info: 3040-3 - LIPASE Performed By: #### L 501.2450, L100.0100, L500.4050 #### [facility] [address] [place], [address] ALK P 72 U/L Normal 45-117 [facility] Comment on above: Order Comment: Order Date: 12/02/23 Order Info: 0786-1 - CMP Order Info: 3040-3 - LIPASE Performed By: #### L 501.2450, L100.0100, L500.4050 #### [facility] [address] [place], [address] ALT [Catalytic activity/Vol] 17 U/L Normal 13-56 [facility] Comment on above: Order Comment: Order Date: 12/02/23 Order Info: 0786-1 - CMP Order Info: 3040-3 - LIPASE Performed By: #### L 501.2450, L100.0100, L500.4050 #### [facility] [address] [place], [address] AST [Catalytic activity/Vol] 17 U/L Normal 15-37 [facility] Comment on above: Order Comment: Order Date: 12/02/23 Order Info: 0786-1 - CMP Order Info: 3040-3 - LIPASE Performed By: #### L 501.2450, L100.0100, L500.4050 #### [facility] [address] [place], [address] Bilirubin [Mass/Vol] 0.50 mg/dL Normal 0.20-1.00 [facility] Comment on above: Order Comment: Order Date: 12/02/23 Order Info: 0786-1 - CMP Order Info: 3040-3 - LIPASE Result Comment: For patients on eltrombopag therapy, use of Dimension [place] TBIL is not recommended. Performed By: #### L 501.2450, L100.0100, L500.4050 #### [facility] [address] [place], [address] BUN/CRE 23.2 RATIO High 10-20 [facility] Comment on above: Order Comment: Order Date: 12/02/23 Order Info: 0786-1 - CMP Order Info: 3040-3 - LIPASE Performed By: #### L 501.2450, L100.0100, L500.4050 #### [facility] [address] [place], [address] CA,Total 9.5 mg/dL Normal 8.5-10.1 [facility] Comment on above: Order Comment: Order Date: 12/02/23 Order Info: 0786-1 - CMP Order Info: 3040-3 - LIPASE Performed By: #### L 501.2450, L100.0100, L500.4050 #### [facility] [address] [place], [address] Chloride [Moles/Vol] 104 mmol/L Normal 98-107 [facility] Comment on above: Order Comment: Order Date: 12/02/23 Order Info: 0786-1 - CMP Order Info: 3040-3 - LIPASE Performed By: #### L 501.2450, L100.0100, L500.4050 #### [facility] [address] [place], [address] CO2 [Moles/Vol] 26.0 mmol/L Normal 21.0-32.0 [facility] Comment on above: Order Comment: Order Date: 12/02/23 Order Info: 0786-1 - CMP Order Info: 3040-3 - LIPASE Performed By: #### L 501.2450, L100.0100, L500.4050 #### [facility] [address] [place], [address] Creatinine [Mass/Vol] 0.78 mg/dL Normal 0.55-1.02 [facility] Comment on above: Order Comment: Order Date: 12/02/23 Order Info: 0786-1 - CMP Order Info: 3040-3 - LIPASE Result Comment: The validity of the calculated GFR GFRAA in patients over 70 years has not been determined. Clinical correlation is essential. Performed By: #### L 501.2450, L100.0100, L500.4050 #### [facility] [address] [place], [address] EST GFR - AA 96 mL/min Normal >60 [facility] Comment on above: Order Comment: Order Date: 12/02/23 Order Info: 0786- - CMP Order Info: 304-3 - LIPASE Result Comment: Afri can Estonian GFR Calc Performed By: #### L 501.2450, L100.0100, L500.4050 #### [facility] [address] [place], [address] GAP 8 Normal 5-15 [facility] Comment on above: Order Comment: Order Date: 12/02/23 Order Info: 0786 - CMP Order Info: 3043 - LIPASE Performed By: #### L 501.2450, L100.0100, L500.4050 #### [facility] [address] [place], [address] GFR/1.73 sq M.predicted among non-blacks MDRD (S/P/Bld) [Vol rate/Area] 79 mL/min/{1.73_m2} Normal >60 [facility] Comment on above: Order Comment: Order Date: 12/02/23 Order Info: 0786- - CMP Order Info: 304-3 - LIPASE Result Comment: Non- GFR Calc Performed By: #### L 501.2450, L100.0100, L500.4050 #### [facility] [address] [place], [address] Globulin (S) [Mass/Vol] 3.3 g/dL Normal 2.2-4.2 [facility] Comment on above: Order Comment: Order Date: 12/02/23 Order Info: 0786-1 - CMP Order Info: 3043 - LIPASE Performed By: #### L 501.2450, L100.0100, L500.4050 #### [facility] [address] [place], [address] Glucose [Mass/Vol] 115 mg/dL High 74-106 [facility] Comment on above: Order Comment: Order Date: 12/02/23 Order Info: 0786-1 - CMP Order Info: 3040-3 - LIPASE Result Comment: Fast ing Glucose result from 100 to 125 mg/dL suggests IMPAIRED HOMEOSTASIS per A.D.A. criteria. Performed By: #### L 501.2450, L100.0100, L500.4050 #### [facility] [address] [place], [address] Potassium [Moles/Vol] 3.8 mmol/L Normal 3.5-5.1 [facility] Comment on above: Order Comment: Order Date: 12/02/23 Order Info: 0786-1 - CMP Order Info: 3040-3 - LIPASE Performed By: #### L 501.2450, L100.0100, L500.4050 #### [facility] [address] [place], [address] Sodium [Moles/Vol] 138 mmol/L Normal 136-145 [facility] Comment on above: Order Comment: Order Date: 12/02/23 Order Info: 0786-1 - CMP Order Info: 3040-3 - LIPASE Performed By: #### L 501.2450, L100.0100, L500.4050 #### [facility] [address] [place], [address] T PROT 7.7 g/dL Normal 6.4-8.2 [facility] Comment on above: Order Comment: Order Date: 12/02/23 Order Info: 0786-1 - CMP Order Info: 3040-3 - LIPASE Performed By: #### L 501.2450, L100.0100, L500.4050 #### [facility] [address] [place], [address] Urea nitrogen [Mass/Vol] 18 mg/dL Normal 7-18 [facility] Comment on above: Order Comment: Order Date: 12/02/23 Order Info: 0786-1 - CMP Order Info: 3040-3 - LIPASE Performed By: #### L 501.2450, L100.0100, L500.4050 #### [facility] [address] [place], [address] Lipaseon 12-02-2023 Lipase [Catalytic activity/Vol] 68 U/L Normal 13-75 [facility] Comment on above: Order Comment: Order Date: 12/02/23 Order Info: 0786-1 - CMP Order Info: 3040-3 - LIPASE Result Comment: Jos seals note: LIPASE revised reference range effective 22. New Lipase methodology. Expected to produce lower values than the previous assay method. NEW Reference Range: 13 - 75 U/L Performed By: #### L 501.2450, L100.0100, L500.4050 #### [facility] [address] [place], [address] Basophil percentageOrdered B y: Walt Flores on 06-12-2023 Bilirubin [Mass/Vol] 0.70 mg/dL 0.20-1.00 [facility] Comment on above: For patients on eltr ombopag therapy, use of Dimension [place] TBIL is not recommended. Chloride [Moles/Vol] 106 mmol/L 98-107 [facility] Cholesterol [Mass/Vol] 164 mg/dL <200 [facility] Comment on above: <200 mg/dL Desirable 200-240 mg/dL Borderline >240 mg/dL High Risk Glucose [Mass/Vol] 97 mg/dL 74-106 [facility] Potassium [Moles/Vol] 4.2 mmol/L 3.5-5.1 [facility] Protein [Mass/Vol] 7.2 g/dL 6.4-8.2 [facility] Sodium [Moles/Vol] 138 mmol/L 136-145 [facility] Triglyceride [Mass/Vol] 68 mg/dL <199 [facility] Comment on above: The drugs N-Acetylcy steine and Metamizole may falsely depress this assay.Serum Triglycerides Reference Interval Normal <150 mg/dL Borderline high 150 - 199 mg/dL High 200 - 499 mg/dL Very High > or = 500 mg/dL Laboratory - Chemistry and C hemistry - challengeOrdered By: Walt Flores on 06-12-2023 Albumin/Globulin [Mass ratio] 1.4 {ratio} 0.9-2.4 [facility] ALP [Catalytic activity/Vol] 65 U/L 45-117 [facility] ALT [Catalytic activity/Vol] 22 U/L 13-56 [facility] Cholesterol in HDL [Mass/Vol] 60 mg/dL >40 [facility] Comment on above: The drugs N-Acetylcy steine and Metamizole may falsely depress this assay. Reference Range HDL <40 mg/dL Low HDL Cholesterol HDL >or= 60 mg/dL High HDL Cholesterol Cholesterol in LDL [Mass/Vol] 90 mg/dL 0-130 [facility] CO2 [Moles/Vol] 29.0 mmol/L 21.0-32.0 [facility] Globulin (S) [Mass/Vol] 3.0 g/dL 2.2-4.[address] [facility] Urea nitrogen/Creatinine [Mass ratio] 16.4 mg/mg 10-20 [facility] No Panel InformationOrdered By: Walt Flores on 06-12-2023 Estimated GFR (MDRD) Amer 103 mL/min >60 [facility] Comment on above: GFR Calc Estimated GFR (MDRD) Non-Af Amer 85 mL/min >60 [facility] Comment on above: Non- GFR Calc VLDL Cholesterol 14 mg/dL 5-40 [facility] Serum or plasma calcium connie urement (mass/volume)Ordered By: Walt Flores on 06-12-2023 Calcium [Mass/Vol] 9.3 mg/dL 8.5-10.1 [facility] Serum or plasma creatinine m easurement (mass/volume)Ordered By: Walt Flores on 06-12-2023 Creatinine [Mass/Vol] 0.73 mg/dL 0.55-1.02 [facility] Comment on above: The validity of the calculated GFR & GFRAA in patients over 70 years has not been determined. Clinical correlation is essential. Serum or plasma urea nitroge n measurement (mass/volume)Ordered By: Walt Flores on 06-12-2023 Urea nitrogen [Mass/Vol] 12 mg/dL 7-18 [facility] Thin prep Papanicolaou smear with manual screeningOrdered By: Walt Flores on 06-12-2023 Thin prep Papanicolaou smear with manual screening 4.2 g/dL 3.2-5.0 [facility] Thin prep Papanicolaou smear with manual screening 14 U/L 15-37 [facility] Thin prep Papanicolaou smear with manual screening 3 5-15 [facility] Basophil percentageOrdered B y: Walt Flores on 06-06-2022 Bilirubin [Mass/Vol] 0.60 mg/dL 0.20-1.00 [facility] Comment on above: For patients on eltr ombopag therapy, use of Dimension [place] TBIL is not recommended. Chloride [Moles/Vol] 105 mmol/L 98-107 [facility] Cholesterol [Mass/Vol] 258 mg/dL <200 [facility] Comment on above: <200 mg/dL Desirable 200-240 mg/dL Borderline >240 mg/dL High Risk Glucose [Mass/Vol] 110 mg/dL 74-106 [facility] Comment on above: Fasting Glucose resu lt from 100 to 125 mg/dL suggests IMPAIRED HOMEOSTASIS per A.D.A. criteria. Potassium [Moles/Vol] 4.0 mmol/L 3.5-5.1 [facility] Protein [Mass/Vol] 7.4 g/dL 6.4-8.2 [facility] Sodium [Moles/Vol] 135 mmol/L 136-145 [facility] Triglyceride [Mass/Vol] 65 mg/dL <[address] [facility] Comment on above: The drugs N-Acetylcy steine and Metamizole may falsely depress this assay.Serum Triglycerides Reference Interval Normal <150 mg/dL Borderline high 150 - 199 mg/dL High 200 - 499 mg/dL Very High > or = 500 mg/dL Laboratory - Chemistry and C hemistry - challengeOrdered By: Walt Flores on 06-06-2022 ALP [Catalytic activity/Vol] 63 U/L 45-117 [facility] ALT [Catalytic activity/Vol] 26 U/L 13-56 [facility] CO2 [Moles/Vol] 28.0 mmol/L 21.0-32.0 [facility] Globulin (S) [Mass/Vol] 3.2 g/dL 2.2-4.2 [facility] Urea nitrogen/Creatinine [Mass ratio] 28.6 mg/mg 10-20 [facility] No Panel InformationOrdered By: Walt Flores on 06-06-2022 Estimated GFR (MDRD) Amer 98 mL/min >60 [facility] Comment on above: GFR Calc Estimated GFR (MDRD) Non-Af Amer 81 mL/min >60 [facility] Comment on above: Non- GFR Calc Serum or plasma albumin connie urement (mass/volume)Ordered By: Walt Flores on 06-06-2022 Albumin [Mass/Vol] 4.2 g/dL 3.2-5.0 [facility] Serum or plasma albumin/glob ulin mass ratioOrdered By: Walt Flores on 06-06-2022 Albumin/Globulin [Mass ratio] 1.3 {ratio} 0.9-2.4 [facility] Serum or plasma calcium connie urement (mass/volume)Ordered By: Walt Flores on 06-06-2022 Calcium [Mass/Vol] 9.2 mg/dL 8.5-10.1 [facility] Serum or plasma cholesterol in HDL measurement (mass/volume)Ordered By: Walt Flores on 06-06-2022 Cholesterol in HDL [Mass/Vol] 70 mg/dL >40 [facility] Comment on above: The drugs N-Acetylcy steine and Metamizole may falsely depress this assay. Reference Range HDL <40 mg/dL Low HDL Cholesterol HDL >or= 60 mg/dL High HDL Cholesterol Serum or plasma cholesterol in VLDL measurement (mass/volume)Ordered By: Walt Flores on 06-06-2022 Cholesterol in VLDL [Mass/Vol] 13 mg/dL 5-40 [facility] Serum or plasma creatinine m easurement (mass/volume)Ordered By: Walt Flores on 06-06-2022 Creatinine [Mass/Vol] 0.77 mg/dL 0.55-1.02 [facility] Comment on above: The validity of the calculated GFR & GFRAA in patients over 70 years has not been determined. Clinical correlation is essential. Serum or plasma low density lipoprotein (LDL) cholesterol measurement (mass/volume)Ordered By: Walt Flores on 06-06-2022 Cholesterol in LDL [Mass/Vol] 175 mg/dL 0-130 [facility] Serum or plasma urea nitroge n measurement (mass/volume)Ordered By: Walt Flores on 06-06-2022 Urea nitrogen [Mass/Vol] 22 mg/dL 7-18 [facility] Thin prep Papanicolaou smear with manual screeningOrdered By: Walt Flores on 06-06-2022 Thin prep Papanicolaou smear with manual screening 19 U/L 15-37 [facility] Thin prep Papanicolaou smear with manual screening 2 5-15 [facility] Cervical or vagninal specime n microscopic examination by cytology stain (reported ason 08-13-2021 Cytology report Cyto stain Doc (Cvx/Vag) Comment . [facility] Work Phone: Comment on above: The Pap smear is a s creening test designed to aid in thedetection of premalignant and malignant conditions of theuterine cervix. It is not a diagnostic procedure andshould not be used as the sole means of detecting cervicalcancer. Both false-positive and false-negative reports dooccur. Detection in cervical specim en of any of human papilloma virus (HPV) 16, 18, 31, 33,on 08-13-2021 HPV 16+18+31+33+35+39+45+51 +52+56+58+59+66+68 DNA Probe+sig amp Ql (Cvx) Negative Negative [facility] Work Phone: Comment on above: This nucleic acid am plification test detects fourteen high-risk HPV types (16,18,31,33,35,39,45,51,52,56,58,59,66,68)without differentiation.Performed at: [address] [id number] Director: Leonarda Griffin MD, Phone: [phone] at: =[address] [id number] Director: Leonarda Griffin MD, Phone: [phone] Laboratory - Cytologyon 07-26 Recreation Leader Cyto stain Nom (Cvx/Vag) [ID] Comment . [facility] Work Phone: Comment on above: Timothy Avina totechnologist (ASCP) Laboratory - Miscellaneous t estson 08-13-2021 Service comment (Unsp spec) [Interp] Comment . [facility] Work Phone: Comment on above: This liquid based Th inPrep(R) pap test was screened withthe use of an image guided system. Service comment (Unsp spec) [Interp] . . [facility] Work Phone: No Panel Informationon 08-13 Pathology report final diagnosis Narrative Comment . [facility] Work Phone: Comment on above: NEGATIVE FOR INTRAEP ITHELIAL LESION OR MALIGNANCY. Basophil percentageon 2021 Chloride [Moles/Vol] 105 mmol/L 98-107 [facility] Work Phone: Cholesterol [Mass/Vol] 175 mg/dL <200 [facility] Work Phone: Comment on above: <200 mg/dL Desirable 200-240 mg/dL Borderline >240 mg/dL High Risk Glucose [Mass/Vol] 117 mg/dL 74-106 [facility] Work Phone: Comment on above: Fasting Glucose resu lt from 100 to 125 mg/dL suggests IMPAIRED HOMEOSTASIS per A.D.A. criteria. Potassium [Moles/Vol] 4.4 mmol/L 3.5-5.1 [facility] Work Phone: Sodium [Moles/Vol] 137 mmol/L 136-145 [facility] Work Phone: Triglyceride [Mass/Vol] 67 mg/dL <199 [facility] Work Phone: Comment on above: The drugs N-Acetylcy steine and Metamizole may falsely depress this assay.Serum Triglycerides Reference Interval Normal <150 mg/dL Borderline high 150 - 199 mg/dL High 200 - 499 mg/dL Very High > or = 500 mg/dL Laboratory - Chemistry and C hemistry - challengeon 06-15-2021 CO2 [Moles/Vol] 31.0 mmol/L 21.0-32.0 [facility] Work Phone: Urea nitrogen/Creatinine [Mass ratio] 23.2 mg/mg 10-20 [facility] Work Phone: No Panel Informationon 06-15 Estimated GFR (MDRD) Amer 97 mL/min >60 [facility] Work Phone: Comment on above: GFR Calc Estimated GFR (MDRD) Non-Af Amer 80 mL/min >60 [facility] Work Phone: Comment on above: Non- GFR Calc Serum or plasma calcium connie urement (mass/volume)on 06-15-2021 Calcium [Mass/Vol] 9.2 mg/dL 8.5-10.1 [facility] Work Phone: Serum or plasma cholesterol in HDL measurement (mass/volume)on 06-15-2021 Cholesterol in HDL [Mass/Vol] 62 mg/dL >40 [facility] Work Phone: Comment on above: The drugs N-Acetylcy steine and Metamizole may falsely depress this assay. Reference Range HDL <40 mg/dL Low HDL Cholesterol HDL >or= 60 mg/dL High HDL Cholesterol Serum or plasma cholesterol in VLDL measurement (mass/volume)on 06-15-2021 Cholesterol in VLDL [Mass/Vol] 13 mg/dL 5-40 [facility] Work Phone: Serum or plasma creatinine m easurement (mass/volume)on 06-15-2021 Creatinine [Mass/Vol] 0.78 mg/dL 0.55-1.02 [facility] Work Phone: Comment on above: The validity of the calculated GFR & GFRAA in patients over 70 years has not been determined. Clinical correlation is essential. Serum or plasma low density lipoprotein (LDL) cholesterol measurement (mass/volume)on 06-15-2021 Cholesterol in LDL [Mass/Vol] 100 mg/dL 0-130 [facility] Work Phone: Serum or plasma urea nitroge n measurement (mass/volume)on 06-15-2021 Urea nitrogen [Mass/Vol] 18 mg/dL 7-18 [facility] Work Phone: Thin prep Papanicolaou smear with manual screeningon 06-15-2021 Thin prep Papanicolaou smear with manual screening 1 5-15 [facility] Work Phone: CNOVon 11-08-2020 CNOV Office Visit (UCWSTR ) UMA GLELER ([id number]) 1960 F Date Time Provider Department 11/08/20 7:30 AM JAYA HEREDIA [facility] During your visit today, we recorded the following information about you: Temperature Pulse Respiration Blood pressure 97.7 degrees 88/minute 18/minute 128/80 Weight 61.7 kg Jaya Heredia MD 11/08/2020 8:03 AM Signed Patient presents with: Rib Injury: left side rib pain x 2 weeks, fall HPI: Left rib pain: Duration: fell 2 weeks ago off a ladder and landed on her left side on a metal table Location: Left anterior to lateral lower ribs Character: aching, burning and sharp Radiation: No. Aggravating: Deep breaths, coughing Relieving: Pain relievers: Motrin and Tylenol Associated: Bruising at the impact site Pertinent negatives: Denies shortness of breath, fever, cough, progressive bruising, palpitations PAST MEDICAL HISTORY Diagnosis Date - Acute gastritis - Adjustment disorder with mixed anxiety and depressed mood - Diaphragmatic hernia without mention of obstruction or gangrene Hiatal hernia - Esophageal reflux - Hyperlipidemia LDL goal < 130 04/17/2012 MEDICATIONS: citalopram (CELEXA) 20 mg tablet Take 1 tablet by mouth once daily. LORazepam (ATIVAN) 0.5 mg Take 1 tablet by mouth twice daily as needed (anxiety) for up to 7 days. omeprazole (PRILOSEC) 20 mg capsule Take 1 capsule by mouth once daily. ALLERGIES: ALLERGIES Allergen Reactions - Codeine - Cymbalta [Duloxetin* Mental Status Change - Prozac [Fluoxetine * - Sulfa (Sulfonamide * VITALS: BP 128/80 Pulse 88 Temp 36.5 ?C (97.7 ?F) Resp 18 Wt 61.7 kg (136 lb) LMP 02/07/2007 SpO2 97% BMI 22.29 kg/m? PHYSICAL EXAM: GEN: pleasant, no acute distress, alert HEENT: PERRL, EOMI, NECK: supple, HEART: regular rate, regular rhythm, no murmurs LUNGS: clear to auscultation, no wheezes or crackles, no increased WOB CHEST: Tender lower 6cm of rib cage from mid axillary line to the xiphoid. No step off. Mild ecchymosis. ABD: soft, non-distended, no masses palpated, tender LUQ EXT: no clubbing, no cyanosis, no edema ASSESSMENT/PLAN: 1. Rib contusion, left, initial encounter - ICD9: 922.1, ICD10: S20.212A We discussed similar treatment for rib contusion versus fracture. She will forego x-ray. Continue supportive care with Tylenol/ibuprofen and activity as tolerated. Encourage incentive inspiration to avoid pneumonia. Seek treatment early with symptoms of cough, shortness of breath, or fever. Jaya Heredia MD Referring Provider: REYMUNDO BALTAZAR [[id number]] Allergies As of Date: 11/08/2020 Noted Allergy Reaction CODEINE 12/20/2004 CYMBALTA (DULOXETINE) 01/11/2005 1 - Mental Status Change PROZAC (FLUOXETINE HCL) 12/20/2004 SULFA (SULFONAMIDE ANTIBIOTICS) 12/20/2004 Date Reviewed: 11/08/2020 Reviewed by: Sera Kovacs - Fully Assessed Reason for Visit: Rib Injury [66675] Cmt: left side rib pain x 2 weeks, fall Primary Visit Diagnosis:Rib contusion, left, initial encounter [S20.212A] Prescriptions as of 11/08/2020 - citalopram (CELEXA) 20 mg tablet Take 1 tablet by mouth once daily. - LORazepam (ATIVAN) 0.5 mg Take 1 tablet by mouth twice daily as needed (anxiety) for up to 7 days. - omeprazole (PRILOSEC) 20 mg capsule Take 1 capsule by mouth once daily. Problem List As Of Date 11/08/2020 Noted Resolved ESOPHAGEAL REFLUX [K21.9] Acute gastritis [535.0] 05/23/2014 ADJUSTMENT DISORDER WITH DEPRESSED MOOD [F43.21]12/21/2004 Tobacco abuse [Z72.0] 03/31/2012 Hyperlipidemia with target LDL less than 130 [E*04/17/2012 Papanicolaou smear of cervix with positive high*06/10/2018 Situational mixed anxiety and depressive disord*06/23/2019 Encounter Status:Closed by JAYA HEREDIA on 11/08/20 [facility] CNOVon 06-22-2020 CNOV Office Visit (MERONWS ) UMA GELLER ([id number]) 1960 F Date Time Provider Department 06/22/20 8:40 AM MEGHNA ELIAS During your visit today, we recorded the following information about you: Pulse Respiration Blood pressure 76/minute 16/minute 128/80 Meghna Elias APRN.PET ADOPTION COUNSELOR 06/22/2020 8:38 AM Signed 1.) Schedule appointment with Dermatology 2.) Apply antibiotic ointment to skin lesion on right mendez, watch for signs of worsening infection, please call the office. 3.) Follow up in the office as needed or if symptoms get worse or do not improve. Meghna Elias APRN.CNP 06/22/2020 8:51 AM Signed This is a 59 year old female who presents today with: No chief complaint on file. HISTORY OF PRESENT ILLNESS: Uma Geller is a 59 year old female. No chief complaint on file. Patient of Dr. Saab presents to the office with red, hard, lump on right mendez started a couple weeks. No injury to the area that she is aware of. Refers that it is very itchy, no discharge. She accidentally nicked it when shaving legs. Another hard lump on right medial ankle that has been present for years. No fever or chills. PAST MEDICAL HISTORY: PAST MEDICAL HISTORY Diagnosis Date - Acute gastritis - Adjustment disorder with mixed anxiety and depressed mood - Diaphragmatic hernia without mention of obstruction or gangrene Hiatal hernia - Esophageal reflux - Hyperlipidemia LDL goal < 130 04/17/2012 PAST SURGICAL HISTORY Procedure Laterality Date - DELIVERY ONLY , low cervical - LIGATE FALLOPIAN TUBE - REMOVAL OF TONSILS,<12 Y/O Tonsillectomy ALLERGIES Codeine, Cymbalta [Duloxetine], Prozac [Fluoxetine Hcl], and Sulfa (Sulfonamide Antibiotics) MEDICATIONS Current Outpatient Medications Medication Sig - citalopram (CELEXA) 20 mg tablet Take 1 tablet by mouth once daily. - LORazepam (ATIVAN) 0.5 mg Take 1 tablet by mouth twice daily as needed (anxiety) for up to 7 days. - omeprazole (PRILOSEC) 20 mg capsule Take 1 capsule by mouth once daily. No current facility-administered medications for this visit. FAMILY HISTORY Problem Relation Age of Onset - Arthritis Mother normal pressure hydrocephalus with dementia - Cancer Father lymphoma - Alzheimer's Disease Maternal Grandmother - Heart Paternal Grandmother - Heart Paternal Grandfather - Alcohol/Drug Son - None Sister - None Sister - None Brother Social History Tobacco Use - Smoking status: Current Some Day Smoker Types: Cigarettes Last attempt to quit: 08/28/2006 Years since quittin.8 - Smokeless tobacco: Never Used Vaping Use - Vaping Use: Never used Substance Use Topics - Alcohol use: No - Drug use: No REVIEW OF SYSTEMS GENERAL: No weight loss, malaise or fevers/chills HEENT: Negative for frequent or significant headaches, No changes in hearing or vision. NECK: Negative for lumps, goiter, pain and significant neck swelling RESPIRATORY: Negative for cough, hemoptysis, wheezing, dyspnea or shortness of breath CARDIOVASCULAR: Negative for chest pain, leg swelling, orthopnea, or palpitations GI: No nausea, vomiting, or diarrhea/constipation . No hematochezia/melena. No heartburn or reflux symptoms. : No history of dysuria, frequency or incontinence MUSCULOSKELETAL: Negative for joint pain or swelling. SKIN: + lesions on right mendez and ankle ENDOCRINE: Negative for cold or heat intolerance, polyuria, polydipsia and goiter NEURO: No history of headaches, syncope, paralysis, seizures or tremors MOOD: Negative for depression, anxiety, or suicidal ideation. EXAM: BP 128/80 Pulse 76 Resp 16 LMP 02/07/2007 PHYSICAL EXAM: General Appearance: Well appearing, alert, in no acute distress, well-hydrated, well nourished. Skin: Positives: + lesion 0.75x0.5 cm raised, hard-fixed, erythematic lesion to right mendez, crusting in the center noted from shaving. 0.5x0.5 cm hard-fixed lesion on medial side of right ankle- raised, no erythema, light brown in color. No discharge. Eyes: Anicteric sclera. Extraocular movements are intact. Lungs: Lungs clear to auscultation. No wheezing, rhonchi, rales. Heart: RRR without murmur, gallop, or rubs. No ectopy. Extremities: No deformities, edema, skin discoloration, clubbing or cyanosis. Good capillary refill. Peripheral Pulses: Normal, Capillary refill <2secs, strong peripheral pulses, Pulses palpable. ASSESSMENT/PLAN: 1. Skin lesion - ICD9: 709.9, ICD10: L98.9 - Due to history and exam will refer patient to dermatology for further evaluation. - Prescription for antibiotic ointment provided to prevent bacterial skin infection. - Directed the patient to watch for worsening symptoms or signs of infection, she verbalizes understanding - Follow-up in the office as needed. - MUPIROCIN CALCIUM 2 % TOPICAL CREAM Follow up in the (more content not included)... [facility] HNO ID: [id number] Author: Mammography Coordinator Service: ? Author Type: Physician Type: Letter Filed: 05/29/2020 11:32 PM Note Text: May 25, 2020 PID: [id number] Uma Geller [address] [place] [address] Dear Ms. Gomezjuanisvaleirraul, We are pleased to inform you that the results of your recent breast imaging exam on 05/25/2020 are normal. Your mammogram demonstrates that you have dense breast tissue, which could hide abnormalities. Dense breast tissue, in and of itself, is a relatively common condition. Therefore, this information is not provided to cause undue concern; rather, it is to raise your awareness and promote discussion with your health care provider regarding the presence of dense breast tissue in addition to other risk factors. Early detection of cancer is very important. We also understand recommendations regarding breast cancer screening are controversial. Please discuss with your primary care provider which strategy is best for you and whether a mammogram is right for you. Your imaging studies and report will be kept on file at [facility] as part of your permanent medical record and are available for your continuing care. Thank you for allowing us to help in meeting your health care needs. Sincerely, Dr. Powell Interpreting Radiologist [facility] (Normal over 40) Normal [facility] CNOVon 05-25-2020 CNOV Office Visit (OBGYWM ) JEOVANYUMA Alberts ([id number]) 1960 F Date Time Provider Department 05/25/20 9:30 AM YARELIS ERAZO (ЕЛЕНА) OBGYWM During your visit today, we recorded the following information about you: Blood pressure Weight Height 102/66 64.2 kg 1.664 m Yarelis Erazo APRN.CNP 05/25/2020 10:09 AM Signed Uma is a 59 year old who presents for an annual gynecologic exam without complaints. Postmenopausal: Yes since age 2007 HRT use: No. Last Pap: 07/28/2019 normal HPV: 07/29/2019 negative History of abnormal pap: Yes Last mammogram: 2019 normal History of abnormal mammogram: No Sexually active: Yes Pain with intercourse: No Postcoital bleeding: No Hot flashes: No Night sweats: No Vaginal dryness: No OB History T2 L2 SAB1 TAB0 Ectopic0 Multiple0 Live Births0 Comment: Son PAST MEDICAL HISTORY Diagnosis Date - Acute gastritis - Adjustment disorder with mixed anxiety and depressed mood - Diaphragmatic hernia without mention of obstruction or gangrene Hiatal hernia - Esophageal reflux - Hyperlipidemia LDL goal < 130 04/17/2012 PAST SURGICAL HISTORY Procedure Laterality Date - DELIVERY ONLY , low cervical - LIGATE FALLOPIAN TUBE - REMOVAL OF TONSILS,<12 Y/O Tonsillectomy FAMILY HISTORY Problem Relation Age of Onset - Arthritis Mother normal pressure hydrocephalus with dementia - Cancer Father lymphoma - Alzheimer's Disease Maternal Grandmother - Heart Paternal Grandmother - Heart Paternal Grandfather - Alcohol/Drug Son - None Sister - None Sister - None Brother SOCIAL HISTORY Social History Tobacco Use - Smoking status: Current Some Day Smoker Types: Cigarettes Last attempt to quit: 08/28/2006 Years since quittin.7 - Smokeless tobacco: Never Used Vaping Use - Vaping Use: Never used Substance Use Topics - Alcohol use: No - Drug use: No REVIEW OF SYSTEMS Abdomen: No abdominal pain, nausea, vomiting, diarrhea, or constipation. No bloating, early satiety, indigestion, or increased flatulence. Bladder: No dysuria, gross hematuria, urinary frequency, urinary urgency, or incontinence Breast: No breast lumps, nipple d/c, overlying skin changes, redness or skin retraction Allergies and current medication updated:Yes EXAM: Ht 5' 5.5 (1.66m) Wt 141 lb 9.6 oz (64.2kg) LMP 02/07/2007 BMI 23.20 kg/(m2). GENERAL: pleasant, female in no apparent distress HEENT: Normocephalic, atraumatic, mucus membranes moist and no lesions NECK: Supple, full range of motion, no adenopathy and thyroid normal DERMATOLOGY: Normal, without lesions, non-icteric and non-hirsute BREAST: soft, non-tender, symmetric, no dominant mass, normal nipple-areolar complex, no lymphadenopathy and no nipple discharge CHEST: Normal inspiratory effort ABDOMEN: soft, non-tender and no masses PELVIC: external genitalia normal, normal Bartholin's glands, urethra, Yardley's glands, no vulvar lesions, no cervical lesions, physiologic discharge present, normal appearing perineal body and perianal region BIMANUAL: uterus normal size, shape and consistency, no adnexal masses and non-tender RECTOVAGINAL: deferred. NEURO: alert and oriented x3,exam grossly non-focal EXTREMITIES: normal ASSESSMENT/PLAN: 1) Health maintenance: Pap/HPV up to date. Mammogram up to date Nutrition, exercise and routine health maintenance exams reviewed. Calcium/Vitamin D supplementation information provided. 2) Follow up one year or sooner as needed Yarelis Erazo APRN.PET ADOPTION COUNSELOR Referring Provider: MAGALY SAAB III [[id number]] Allergies As of Date: 05/25/2020 Noted Allergy Reaction CODEINE 12/20/2004 CYMBALTA (DULOXETINE) 01/11/2005 1 - Mental Status Change PROZAC (FLUOXETINE HCL) 12/20/2004 SULFA (SULFONAMIDE ANTIBIOTICS) 12/20/2004 Date Reviewed: 05/25/2020 Reviewed by: Yarelis Burns) Castro - Fully Assessed Reason for Visit: Yearly Exam [187] Primary Visit Diagnosis:Encounter for gynecological examination (general) (routine) without abnormal findings [Z01.419] Other Visit Diagnoses:Encounter for screening mammogram for breast cancer [Z12.31] Dense breast tissue [R92.2] Order(s):[facility] SCREENING [[id number]] Order #: [id number] FUTURE Prescriptions as of 05/25/2020 Sig: CITALOPRAM 20 MG TABLET Take 1 tablet by mouth once d* LORAZEPAM 0.5 MG TABLET Take 1 tablet by mouth twice * OMEPRAZOLE 20 MG CAPSULE,SARAH* Take 1 capsule by mouth once * Problem List As Of Date 05/25/2020 Noted Resolved ESOPHAGEAL REFLUX [K21.9] Acute gastritis [535.0] 05/23/2014 ADJUSTMENT DISORDER WITH DEPRESSED MOOD [F43.21]12/21/2004 Tobacco abuse [Z72.0] 03/31/2012 Hyperlipidemia with target LDL less than 130 [E*04/17/2012 Papanicolaou smear of cervix with positive high*06/10/2018 Situational mixed anxiety and depressive disord*06/23/19 (more content not included)... [facility] UMA GELL[facility] ([id number]) 1960 F Date Time Provider Department 05/25/20 8:40 AM MAGALY SAAB III During your visit today, we recorded the following information about you: Pulse Respiration Blood pressure Weight 72/minute 16/minute 118/82 64 kg Magaly Saab III MD 05/25/2020 11:11 AM Signed SUBJECTIVE: This is a 59 year old female that is here today for medication review she has had a history of anxiety and depression following her son's unexpected a year or 2 ago. May is the anniversary month. However, she does feel that she can reduce Celexa from 40 mg daily to 20 mg daily. We did discuss a slow weaning program of 20 mg every other day alternating with 40 mg every other day for 1 week. She uses lorazepam very infrequently. no chest pain, angina, MIRAMONTES, cough, abd pain, change in BM, rectal bleeding, change in urination Current Outpatient Medications on File Prior to Visit Medication Sig - LORazepam (ATIVAN) 0.5 mg Take 1 tablet by mouth twice daily as needed (anxiety) for up to 7 days. - omeprazole (PRILOSEC) 20 mg capsule Take 1 capsule by mouth once daily. - citalopram (CELEXA) 40 mg tablet Take 1 tablet by mouth once daily. No current facility-administered medications on file prior to visit. PAST MEDICAL HISTORY Diagnosis Date - Acute gastritis - Adjustment disorder with mixed anxiety and depressed mood - Diaphragmatic hernia without mention of obstruction or gangrene Hiatal hernia - Esophageal reflux - Hyperlipidemia LDL goal < 130 04/17/2012 FAMILY HISTORY Problem Relation Age of Onset - Arthritis Mother normal pressure hydrocephalus with dementia - Cancer Father lymphoma - Alzheimer's Disease Maternal Grandmother - Heart Paternal Grandmother - Heart Paternal Grandfather - Alcohol/Drug Son - None Sister - None Sister - None Brother Social History Tobacco Use - Smoking status: Current Some Day Smoker Types: Cigarettes Last attempt to quit: 08/28/2006 Years since quittin.7 - Smokeless tobacco: Never Used Vaping Use - Vaping Use: Never used Substance Use Topics - Alcohol use: No - Drug use: No BP 118/82 (BP Site: Left Arm, BP Position: Sitting, BP Cuff Size: Regular Adult) Pulse 72 Resp 16 Wt 64 kg (141 lb) LMP 02/07/2007 BMI 23.46 kg/m? OBJECTIVE: APPEARANCE Well appearing, alert, in no acute distress, well-hydrated, well nourished. NECK Supple, no adenopathy; thyroid symmetric, normal size, no bruits HEART RRR with normal S1 and S2, no murmurs, no gallops, no JVD appreciated LUNG clear to auscultation ABDOMEN bowel sounds normoactive, no bruits, soft, non-tender, non-distended, without organomegaly or palpable masses, no tenderness to palpation EXTREMITIES Extremities normal, No deformities, No skin discoloration and No edema Appearance: well dressed well groomed, cooperative and pleasant Behavior: good eye contact Speech: fluent and coherent Mood: euthymic Affect: appropriate Perceptions: none Thought process: goal directed Thought Content: normal Intelligence level: normal Insight: good Judgment: good ASSESSMENT: situational anxiety and depression--well controlled tobacco use disorder PLAN: healthy diet and regular exercise wean and reduce celexa 20 mg daily consider quitting smoking stool testing for colon cancer screening labs as ordered continue to use lorazepam sparingly as needed Magaly Saab III MD Medical Decision Making: Problems: Moderate: 2+ stable chronic illnesses Data: Unique test(s) ordered: 3+ Risk: Moderate: Drug management Medical Decision Making Level: 4 - Moderate Magaly Saab III MD 05/25/2020 9:00 AM Signed healthy diet and regular exercise wean and reduce celexa 20 mg daily consider quitting smoking stool testing for colon cancer screening labs as ordered continue to use lorazepam sparingly as needed Magaly Saab III MD Referring Provider: MAGALY SAAB III [[id number]] Allergies As of Date: 05/25/2020 Noted Allergy Reaction CODEINE 12/20/2004 CYMBALTA (DULOXETINE) 01/11/2005 1 - Mental Status Change PROZAC (FLUOXETINE HCL) 12/20/2004 SULFA (SULFONAMIDE ANTIBIOTICS) 12/20/2004 Date Reviewed: 05/25/2020 Reviewed by: Yarelis Burns) Castro - Fully Assessed Reason for Visit: Medication Follow-up [270] Primary Visit Diagnosis:Situational mixed anxiety and depressive disorder [F43.23] Other Visit Diagnoses:Screening for colon cancer [Z12.11] Adjustment disorder with depressed mood [F43.21] Hyperlipidemia with target LDL less than 130 [E78.5] Vitamin D deficiency [E55.9] Medication monitoring encounter [Z51.81] Tobacco abuse [Z72.0] Order(s):FECAL OCCULT BLOOD TEST [SQIFOBT] Order #: [id number] FUTURE citalopram (CELEXA) 20 mg tabletTake 1 tablet by mouth once daily.Disp: 30 tabletRfl: 12 LIPID PANEL (more content not included)... Normal [facility] SCREENINGon 05-25-2020 [facility] SCREENING * * *Final Report* * * DATE OF EXAM: May 25 2020 11:00AM WRW [id number] - [facility] SCREENING / PROCEDURE REASON: Encounter for screening mammogram for breast cancer * * * * Physician Interpretation * * * * RESULT: #[id number] - [facility] SCREENING BILATERAL DIGITAL SCREENING MAMMOGRAM WITH CAD: 05/25/2020 HISTORY: Screening Mammogram - patient reports NO breast symptoms /priors available for comparison. RESULT: TECHNIQUE: The study was acquired using full field digital technology and interpreted from soft copy. Current study was also evaluated with a Computer Aided Detection (CAD). Comparison is made to exams dated: 07/26/2019 mammogram - [facility], 06/04/2018 mammogram, 05/29/2017 mammogram, 03/29/2015 mammogram, and 11/09/2013 mammogram - [facility]. The tissue of both breasts is heterogeneously dense. This may lower the sensitivity of mammography. No significant masses, calcifications, or other findings are seen in either breast. There has been no significant interval change. IMPRESSION: NEGATIVE There is no mammographic evidence of malignancy. A 1 year screening mammogram is recommended. Adrianna dangelo/keely:05/25/2020 16:41:18 Surgical Scrub Technologist(s): RT Efrain(R)(M), [facility] letter sent: Normal over 40 Mammogram BI-RADS: 1 Negative Multiple national specialty organizations have released breast cancer screening guidelines for women at average risk for developing breast cancer - guidelines that are based on both evidence and opinion, yet differ on when to start and how often to screen for breast cancer. With representation from Breast Imaging, Internal Medicine, Women's Health, Family Medicine, and Medical/Surgical Oncology, the [facility] has carefully reviewed the data and reached the following consensus: 1) All women should engage in shared decision-making with their providers to decide when to start and how often to screen; 2) All women should have the opportunity to start screening mammography at age 40; 3) For women ages 45-55, we recommend annual screening mammograms; 4) For women ages 55 and over, we support both the transition from an annual to a biennial interval if this aligns more with patient's values and preferences, or continuation with annual screening; 5) All women should discuss with their providers when to stop screening mammograms. Tire Servicer: Keely Transcribe Date/Time: May 25 2020 10:10A Dictated by: ADRIANNA POWELL MD This examination was interpreted and the report reviewed and electronically signed by: ADRIANNA POWELL MD on May 25 2020 4:41PM EST [id number] N Normal [facility] OBSOLETEon 05-11-2020 OBSOLETE Refill (FAMPWS) UMA GELLER ([id number]) 1960 F Date Time Provider Department 05/11/20 MAGALY SAAB III FAMPWS During your visit today, we recorded the following information about you: Abby Pino 05/11/2020 12:53 PM Signed Patient's request for medication is as follows: Pending Prescriptions Disp Refills LORAZEPAM 0.5 MG TABLET 14 tablet 0 Sig: Take 1 tablet by mouth twice daily as needed (anxiety) for up to 7 days. CHERRY Class: C-IV BRANDO: No Prescription(s) as above. Please process accordingly. Abby Dias Ma 05/11/2020 1:24 PM Signed Last office visit 11/30/2019 Follow up scheduled 05/25/2020 Last refilled 01/31/2020 #14 0 refills Damari Srivastava DNP.ЕЛЕНА, DOG BEHAVIORIST.ЕЛЕНА 05/11/2020 5:48 PM Signed PDMP website checked and validated 05/11/2020. All prescriptions have been APPROPRIATELY filled. No suspicious activity was identified. 05/03/2020 by Chinedu Srivastava DNP.ЕЛЕНА The following approved medication requests have been transmitted electronically. Pending Prescriptions Disp Refills LORAZEPAM 0.5 MG TABLET 14 tablet 0 Sig: Take 1 tablet by mouth twice daily as needed (anxiety) for up to 7 days. CHERRY Class: C-IV BRANDO: No Chinedu Srivastava DNP.CNP Allergies As of Date: 05/11/2020 Noted Allergy Reaction CODEINE 12/20/2004 CYMBALTA (DULOXETINE) 01/11/2005 1 - Mental Status Change PROZAC (FLUOXETINE HCL) 12/20/2004 SULFA (SULFONAMIDE ANTIBIOTICS) 12/20/2004 Date Reviewed: 07/26/2019 Reviewed by: Yarelis ([facility]) [place] - Fully Assessed Reason for Visit: Refill Request [94] Visit Diagnosis:Situational mixed anxiety and depressive disorder [F43.23] Order(s):LORazepam (ATIVAN) 0.5 mgTake 1 tablet by mouth twice daily as needed (anxiety) for up to 7 days.Disp: 14 tabletRfl: 0 Prescriptions as of 05/11/2020 Sig: LORAZEPAM 0.5 MG TABLET Take 1 tablet by mouth twice * OMEPRAZOLE 20 MG CAPSULE,SARAH* Take 1 capsule by mouth once * CITALOPRAM 40 MG TABLET Take 1 tablet by mouth once d* Problem List As Of Date 05/11/2020 Noted Resolved ESOPHAGEAL REFLUX [K21.9] More... Acute gastritis [535.0] 05/23/2014 ADJUSTMENT DISORDER WITH DEPRESSED MOOD [F43.21]12/21/2004 Tobacco abuse [Z72.0] 03/31/2012 Hyperlipidemia with target LDL less than 130 [E*04/17/2012 Papanicolaou smear of cervix with positive high*06/10/2018 More... Situational mixed anxiety and depressive disord*06/23/2019 Prescriptions ordered this encounter Disp Refills Start End LORAZEPAM 0.5 MG TABLET 14 t* 0 05/11/2020 05/18/2020 Route: ORAL Sig: Take 1 tablet by mouth twice daily as needed (anxiety) for up to 7 days. Medications Discontinued During This Encounter Prescriptions - LORazepam (ATIVAN) 0.5 mg (Discontinued) Take 1 tablet by mouth twice daily as needed (anxiety) for up to 7 days. Encounter Status:Closed by CHINEDU SRIVASTAVA DNP, CNP on 05/11/20 [facility] OBSOLETEon 04-25-2020 OBSOLETE Refill (FAMPWS) UMA GELLER ([id number]) 1960 F Date Time Provider Department 04/25/20 MAGALY SAAB III During your visit today, we recorded the following information about you: Delia Dozier [facility] 04/25/2020 9:07 AM Signed Patient has been identified by name and date of : Yes Pending Prescriptions Disp Refills OMEPRAZOLE 20 MG CAPSULE,DELAYED RELEASE 30 capsule 11 Sig: Take 1 capsule by mouth once daily. BRANDO: No RX INSTRUCTIONS: Patient aware RX will be sent to pharmacy. No need to notify patient. Delia Rosales Ma 04/25/2020 9:31 AM Signed Patient last visit with PCP 11/30/19 Follow up appointment scheduled none Patricia Srivastava DNP.PET ADOPTION COUNSELOR, DOG BEHAVIORIST.PET ADOPTION COUNSELOR 04/25/2020 4:34 PM Signed The following approved medication requests have been transmitted electronically. Pending Prescriptions Disp Refills OMEPRAZOLE 20 MG CAPSULE,DELAYED RELEASE 90 capsule 3 Sig: Take 1 capsule by mouth once daily. BRANDO: No Chinedu Srivastava DNP.PET ADOPTION COUNSELOR Allergies As of Date: 04/25/2020 Noted Allergy Reaction CODEINE 12/20/2004 CYMBALTA (DULOXETINE) 01/11/2005 1 - Mental Status Change PROZAC (FLUOXETINE HCL) 12/20/2004 SULFA (SULFONAMIDE ANTIBIOTICS) 12/20/2004 Date Reviewed: 07/26/2019 Reviewed by: Yarelis (Елена) [place] - Fully Assessed Reason for Visit: Refill Request [94] Visit Diagnosis:Gastroesoph ageal reflux disease without esophagitis [K21.9] Order(s):omeprazole (PRILOSEC) 20 mg capsuleTake 1 capsule by mouth once daily.Disp: 90 capsuleRfl: 3 Prescriptions as of 04/25/2020 Sig: OMEPRAZOLE 20 MG CAPSULE,SARAH* Take 1 capsule by mouth once * LORAZEPAM 0.5 MG TABLET Take 1 tablet by mouth twice * CITALOPRAM 40 MG TABLET Take 1 tablet by mouth once d* Problem List As Of Date 04/25/2020 Noted Resolved ESOPHAGEAL REFLUX [K21.9] More... Acute gastritis [535.0] 05/23/2014 ADJUSTMENT DISORDER WITH DEPRESSED MOOD [F43.21]12/21/2004 Tobacco abuse [Z72.0] 03/31/2012 Hyperlipidemia with target LDL less than 130 [E*04/17/2012 Papanicolaou smear of cervix with positive high*06/10/2018 More... Situational mixed anxiety and depressive disord*06/23/2019 Prescriptions ordered this encounter Disp Refills Start End OMEPRAZOLE 20 MG CAPSULE,DELAYED REL* 90 c* 3 04/25/2020 04/25/2021 Route: ORAL Sig: Take 1 capsule by mouth once daily. Medications Discontinued During This Encounter Prescriptions - omeprazole (PRILOSEC) 20 mg capsule (Discontinued) Take 1 capsule by mouth once daily. Encounter Status:Closed by CHINEDU SRIVASTAVA DNP PET ADOPTION COUNSELOR on 04/25/20 [facility] XR CHEST 2V FRONTAL/LATon XR CHEST 2V FRONTAL/LAT * * *Final Repor t* * *DATE OF EXAM: Mar 05 2017 12:31PM MDX 5291 - XR CHEST 2V FRONTAL/LAT / REASON: [id number] * * * * Physician Interpretation * * * * EXAMINATION: CHEST RADIOGRAPH (2 VIEW FRONTAL and LATERAL)Clinical History: CoughM: XC2_3Comparison: 06/10/2007, 05/31/2015RESULT:Lines, tubes, and devices: None.Lungs and pleura: No focal consolidation, pleural effusion or pneumothorax. Scattered nodular densities in bilateral lungs are similar to prior exam of 2007 and are compatible with calcified granulomas.Cardiomedi astinal silhouette: Within normal limits.Other: No acute osseous abnormality.IMPRESSIO N:No acute radiographic abnormality is evident.Forest Fire Control Officer ist: PSCB Transcribe Date/Time: Mar 05 2017 12:34PDictated by : PATRICIA ALLISON MDThis examination was interpreted and the report reviewed and electronically signed by: PATRICIA ALLISON MD on Mar 05 2017 12:38PM [id number] Vital Signs Date Time Vital Sign Value Performing Clinician Faci lity 09-14-2024 08:02-0400 Body height 165.[address] Walt Flores MD Work Phone: [facility] 09-14-2024 07:57-0400 Body mass index (BMI) [Ratio] 25 kg/m2 Dr. Walt Flores MD Work Phone: [facility] 09-14-2024 07:57-0400 Body weight 68.[address] Walt Flores MD Work Phone: [facility] 09-14-2024 07:57-0400 Diastolic blood pressure 72 mm[Hg] Dr. Walt Flores MD Work Phone: [facility] 09-14-2024 07:57-0400 Systolic blood pressure 124 mm[Hg] Dr. Walt Flores MD Work Phone: [facility] 08-06-2024 10:42-0400 Body temperature 97.8 [degF] Dr. Walt Flores MD Work Phone: [facility] 08-06-2024 10:42-0400 Diastolic blood pressure 76 mm[Hg] Dr. Walt Flores MD Work Phone: [facility] 08-06-2024 10:42-0400 Heart rate 81 /min Dr. Walt Flores MD Work Phone: [facility] 08-06-2024 10:42-0400 Respiratory rate 16 /min Dr. Walt Flores MD Work Phone: [facility] 08-06-2024 10:42-0400 SaO2% (BldA) [Mass fraction] 98 % Dr. Walt Flores MD Work Phone: [facility] 08-06-2024 10:42-0400 Systolic blood pressure 112 mm[Hg] Dr. Walt Flores MD Work Phone: [phone] [place] [address] 03-18-2023 13:08-0500 Body temperature 98.1 [degF] Dr. Walt Flores Work Phone: [facility] 03-18-2023 13:08-0500 Diastolic blood pressure 78 mm[Hg] Dr. Walt Flores Work Phone: [facility] 03-18-2023 13:08-0500 Heart rate 86 /min Dr. Walt Flores Work Phone: [facility] 03-18-2023 13:08-0500 Respiratory rate 12 /min Dr. Walt Flores Work Phone: [facility] 03-18-2023 13:08-0500 SaO2% (BldA) [Mass fraction] 98 % Dr. Walt Flores Work Phone: [facility] 03-18-2023 13:08-0500 Systolic blood pressure 124 mm[Hg] Dr. Walt Flores Work Phone: [facility] 08-26-2022 10:57-0400 Body height 165.[address] Walt Flores Work Phone: [facility] 08-26-2022 10:49-0400 Body mass index (BMI) [Ratio] 23.5 kg/m2 Dr. Walt Flores Work Phone: [facility] 08-26-2022 10:49-0400 Body weight 64.[address] Walt Flores Work Phone: [facility] 08-26-2022 10:49-0400 Diastolic blood pressure 68 mm[Hg] Dr. Walt Flores Work Phone: [facility] 08-26-2022 10:49-0400 Systolic blood pressure 108 mm[Hg] Dr. Walt Flores Work Phone: [facility] 08-13-2021 14:51-0400 Body height 165.[address] Walt Flores Work Phone: [facility] Work Phone: 08-13-2021 14:51-0400 Body mass index (BMI) [Ratio] 22.9 kg/m2 Dr. Walt Flores Work Phone: [facility] Work Phone: 08-13-2021 14:51-0400 Body weight 62.[address] Walt Flores Work Phone: [facility] Work Phone: 08-13-2021 14:51-0400 Diastolic blood pressure 78 mm[Hg] Dr. Walt Flores Work Phone: [facility] Work Phone: 08-13-2021 14:51-0400 Systolic blood pressure 126 mm[Hg] Dr. Walt Flores Work Phone: [facility] Work Phone: Encounters Encounter Date Encounter Type Care Provider Facility Start: 10-05-2024 ambulatory Walt Flores Facility:[facility] Start: 09-14-2024 ambulatory Walt Flores Facility:[facility] Start: 09-14-2024 End: 09-14-2024 ambulatory Walt Flores Facility[facility] Start: 09-14-2024 End: 09-14-2024 Patient encounter procedure Aicha NULL -[facility] Work Phone: Start: 09-14-2024 End: 09-14-2024 Patient encounter status Aicha NULL [facility] Start: 08-06-2024 End: 08-06-2024 Patient encounter procedure Keith Lamas [place] [facility] Work Phone: Start: 08-06-2024 End: 08-06-[address] Walt Flores MD Work Phone: [facility] Work Phone: Start: 06-09-2024 End: 06-09-[address] Walt Flores MD Work Phone: [facility] Work Phone: Start: 06-09-2024 End: 06-09-[address] Walt Flores MD -[facility] Start: 06-09-2024 End: 06-09-2024 ambulatory Walt Flores Facility:[facility] Start: 12-24-2023 ambulatory Walt Flores Facility:[facility] Start: 12-24-2023 End: 12-24-2023 ambulatory Walt Flores Facility:[facility] Start: 12-09-2023 End: 12-09-2023 ambulatory Jl Berry NP Facility:[facility] Start: 12-06-2023 End: 12-07-2023 Emergency department patient visit Walt Flores Facility:[facility] Start: 12-02-2023 End: 12-02-2023 ambulatory Jl Berry NP Facility:[facility] Start: 06-12-2023 End: 06-12-[address] Walt Flores Work Phone: [facility] Work Phone: Start: 06-12-2023 End: 06-12-[address] Walt Flores Work Phone: [facility] Start: 03-18-2023 End: 03-18-[address] Walt Flores Work Phone: [facility] Work Phone: Start: 09-03-2022 End: 09-03-[address] Walt Flores Work Phone: [facility] Work Phone: Start: 09-03-2022 End: 09-03-[address] Walt Flores Work Phone: [facility]-Outpatient Breast Imaging Work Phone: Start: 08-26-2022 End: 08-26-[address] Walt Flores Work Phone: [facility] Work Phone: Start: 06-06-2022 End: 06-06-[address] Walt Flores Work Phone: [facility] Work Phone: Start: 12-21-2021 End: 12-21-2021 ambulatory [facility] Work Phone: Start: 12-21-2021 End: 12-21-2021 Patient encounter procedure [facility] Scan, [facility] Start: 08-22-2021 End: 08-22-[address] Walt Flores Work Phone: [facility]-Outpatient Breast Imaging Start: 08-13-2021 End: 08-13-[address] [facility] Start: 08-13-2021 End: 08-13-[address] Walt Flores Work Phone[facility] Start: 06-15-2021 End: 06-15-2021 Patient encounter procedure [facility] Start: 03-05-2017 Ambulatory YARELIS Reddy (DEEPTI) [facility] Procedures Date Procedure Procedure Detail Performing Clinician Start: 09-03-2022 Screening mammography Eveline Flores Work Phone: Start: 12-21-2021 CT of chest Start: 08-22-2021 Screening mammography D r. Walt Flores Work Phone: Plan of Treatment Date Care Activity Detail Author MG Breast - bilateral Screening [facility] Work Phone: Payers Date Payer Category Payer Medicare [id number] 2023 Self-pay [id number] 2023 Unknown [id number] Unknown [id number] Unknown [id number] Unknown [facility] [id number] Unknown [id number] 2.16.8 [id number] Unknown [id number] 2.16.8 [id number] Unknown [id number] 2.16.8 [id number] Unknown [id number] 2.16.8 [id number] Unknown [id number] 2.16.8 [id number] Unknown [id number] 2.16.8 [id number] Unknown [id number] 2.16.8 [id number] Unknown [id number] 2.16.8 [id number] Unknown [id number] 2.16.8 [id number] Unknown [id number] 2.16.8 [id number] Social History Date Type Detail Facility Start: 03-31-2019 End: 03-18-2023 Tobacco smoking status NHIS Unknown if ever smoked [facility] Start: 03-30-2019 None [facility] Start: 03-30-2019 Alone [facility] Start: 03-31-2019 Cigarettes [facility] Start: 1960 Sex Assigned At Female [facility] Start: 12-06-2023 Tobacco smoking stat [facility] Current Light tobacco smoker [facility] Start: 06-15-2024 Sex Female (finding) [facility] Start: 09-14-2024 Tobacco smoking stat [facility] Current some day smoker [facility] Clinical Notes 05-25-2020 to 09-14-2024 Note Date & Type Note Facility 09-14-2024 Progress note [facility] 08-06-2024 Evaluation note Diagnosis Onset Date Resolution Acute sinusitis deleted July 10:38am History of HPV infection acute September 14, 2024 7:50am Encounter for routine gynecological examination noneactive September 14, 2024 7:50am [facility] Work Phone: [phone]) 142-422706-20-2022 NotePap Smear Specimen AdequacyJun2021 3:33pmComment.Satisfactory for evaluation. No endocervical component is identified.[employer] INTERFACED A#[id number] O'Bleness Hospital Work Phone: comment on above:Satisfactory for evaluation. No endocervical component is identified.08-13-2021 NotePap Smear Specimen Adequacy August 13, 2021 3:33pmComment.Satisfactory for evaluation. No endocervical component is identified.[employer] INTERFACED A#[id number] O'Bleness Hospital Work Phone: Comxcfu on above:Satisfactory for evaluation. No endocervical component is identified.01-17-2021 NotePatient Outreach (NETNAV) UMA GELLER ([id number]) 1960 F Date Time Provider Department 01/17/21 RYAN RAYARET Jorge LUCIAN During your visit today, we recorded the following information about you: Avel Ray Population Health Navigator 01/17/2021 11:18 AM Signed POPULATION HEALTH NAVIGATION OUTREACH Action/FYI I spoke with patient and she already has a new pcp outside of the clinic Updated pcp Contact made with patient or family member? YES Pt identified by name and : YES Outreach Outcome/Action Spoke to patient or caregiver: PCP confirmed / updated Patient declined Reason for Outreach Attribution: Provider Off-boarding Payer: Payor: TAJ / Plan: ANTHEM PATHWAY HMO CLAUDIA / Product Type: HMO / Care Gap Reviewed:: Reminder: Reminder note to check Health Maintenance for items below Health Maintenance items due: COLORECTAL CANCER SCREENING due on 06/24/2019 INFLUENZA(1) due on 10/25/2020 Advanced Directives Completed: Have you ever planned for future healthcare decisions with a power of optical glass inspector, living will, or advance directives? No. Please bring a copy to your next appointment or email to Referrals: N/A Message Sent to Practice: NO Navigation Signature: Avel Ray Population Health Navigator January 17, 2021 11:17 AM Allergies As of Date: 01/17/2021 Noted Allergy Reaction CODEINE 12/20/2004 CYMBALTA (DULOXETINE) 01/11/2005 1 - Mental Status Change PROZAC (FLUOXETINE HCL) 12/20/2004 SULFA (SULFONAMIDE ANTIBIOTICS) 12/20/2004 Date Reviewed: 11/08/2020 Reviewed by: Sera Kovacs - Fully Assessed Reason for Visit: Population Health Navigation Outreach [3910] Cmt: Offboarding Prescriptions as of 01/17/2021 - citalopram (CELEXA) 20 mg tablet Take 1 tablet by mouth once daily. - LORazepam (ATIVAN) 0.5 mg Take 1 tablet by mouth twice daily as needed (anxiety) for up to 7 days. - omeprazole (PRILOSEC) 20 mg capsule Take 1 capsule by mouth once daily. Problem List As Of Date 01/17/2021 Noted Resolved ESOPHAGEAL REFLUX [K21.9] Acute gastritis [535.0] 05/23/2014 ADJUSTMENT DISORDER WITH DEPRESSED MOOD [F43.21]12/21/2004 Tobacco abuse [Z72.0] 03/31/2012 Hyperlipidemia with target LDL less than 130 [E*04/17/2012 Papanicolaou smear of cervix with positive high*06/10/2018 Situational mixed anxiety and depressive disord*06/23/2019 Encounter Status:Closed by CORY POPULATION HEALTH NAVIGATOR, AVEL L on 01/17/21[facility]11-24-2021 NoteHNO ID: [id number] Author: Avel Ray Population Health Navigator Service: ? Author Type: ? Type: Progress Notes Filed: 01/17/2021 11:18 AM Note Text: POPULATION HEALTH NAVIGATION OUTREACH Action/FYI I spoke with patient and she already has a new pcp outside of the clinic Updated pcp Contact made with patient or family member? YES Pt identified by name and : YES Outreach Outcome/Action Spoke to patient or caregiver: PCP confirmed / updated Patient declined Reason for Outreach Attribution: Provider Off-boarding Payer: Payor: TAJ / Plan: TAJ PATHWAY HMO CLAUDIA / Product Type: HMO / Care Gap Reviewed:: Reminder: Reminder note to check Health Maintenance for items below Health Maintenance items due: COLORECTAL CANCER SCREENING due on 06/24/2019 INFLUENZA(1) due on 10/25/2020 Advanced Directives Completed: Have you ever planned for future healthcare decisions with a power of optical glass inspector, living will, or advance directives? No. Please bring a copy to your next appointment or email to [email or web address] Referrals: N/A Message Sent to Practice: NO Navigation Signature: Avel Ray Population Health Navigator January 17, 2021 11:17 [facility]09-20-2021 NotePatient Outreach (NETNAV) UMA GELLER ([id number]) 1960 F Date Time Provider Department 11/13/20 SHAKILA CA (PSS) NETNAV During your visit today, we recorded the following information about you: Shakila Pino 11/13/2020 10:21 AM Signed POPULATION HEALTH NAVIGATION OUTREACH Action/ Colorectal Cancer Screening- LM regarding FOBT -not done Ordered 05/25/20 No Mychart Contact made with patient or family member? NO Pt identified by name and : NO Outreach Outcome/Action Unable to reach patient: Left message Reason for Outreach Care Gap or Scheduling/Wellness visits Payer: Payor: TAJ / Plan: TAJ PATHWAY HMO CLAUDIA / Product Type: HMO / Care Gap Reviewed:: Colorectal Cancer Screening Reminder: Reminder note to check Health Maintenance for items below Health Maintenance items due: COLORECTAL CANCER SCREENING due on 06/24/2019 INFLUENZA(1) due on 10/25/2020 Navigation Signature: Shakila Pino November 13, 2020 10:18 AM Allergies As of Date: 11/13/2020 Noted Allergy Reaction CODEINE 12/20/2004 CYMBALTA (DULOXETINE) 01/11/2005 1 - Mental Status Change PROZAC (FLUOXETINE HCL) 12/20/2004 SULFA (SULFONAMIDE ANTIBIOTICS) 12/20/2004 Date Reviewed: 11/08/2020 Reviewed by: Sera Kovacs - Fully Assessed Reason for Visit: Population Health Navigation Outreach [3910] Cmt: COLORECTAL CANCER SCREENING (fobt) Prescriptions as of 11/13/2020 - citalopram (CELEXA) 20 mg tablet Take 1 tablet by mouth once daily. - LORazepam (ATIVAN) 0.5 mg Take 1 tablet by mouth twice daily as needed (anxiety) for up to 7 days. - omeprazole (PRILOSEC) 20 mg capsule Take 1 capsule by mouth once daily. Problem List As Of Date 11/13/2020 Noted Resolved ESOPHAGEAL REFLUX [K21.9] Acute gastritis [535.0] 05/23/2014 ADJUSTMENT DISORDER WITH DEPRESSED MOOD [F43.21]12/21/2004 Tobacco abuse [Z72.0] 03/31/2012 Hyperlipidemia with target LDL less than 130 [E*04/17/2012 Papanicolaou smear of cervix with positive high*06/10/2018 Situational mixed anxiety and depressive disord*06/23/2019 Encounter Status:Closed by SHAKILA TRISTAN on 11/13/20[facility] 11-13-2020 NoteHNO ID: [id number] Author: Shakila Pino Service: ? Author Type: ? Type: Progress Notes Filed: 11/13/2020 10:21 AM Note Text: POPULATION HEALTH NAVIGATION OUTREACH Action/ Colorectal Cancer Screening- LM regarding FOBT -not done Ordered 05/25/20 No Mychart Contact made with patient or family member? NO Pt identified by name and : NO Outreach Outcome/Action Unable to reach patient: Left message Reason for Outreach Care Gap or Scheduling/Wellness visits Payer: Payor: ANTHEM / Plan: ANTHEM PATHWAY HMO CLAUDIA / Product Type: HMO / Care Gap Reviewed:: Colorectal Cancer Screening Reminder: Reminder note to check Health Maintenance for items below Health Maintenance items due: COLORECTAL CANCER SCREENING due on 06/24/2019 INFLUENZA(1) due on 10/25/2020 Navigation Signature: Shakila Pino November 13, 2020 10:18 [facility]09-15-2021 NoteHNO ID: [id number] Author: Jaya Heredia MD Service: ? Author Type: Physician Type: Progress Notes Filed: 11/08/2020 8:03 AM Note Text: Patient presents with: Rib Injury: left side rib pain x 2 weeks, fall HPI: Left rib pain: Duration: fell 2 weeks ago off a ladder and landed on her left side on a metal table Location: Left anterior to lateral lower ribs Character: aching, burning and sharp Radiation: No. Aggravating: Deep breaths, coughing Relieving: Pain relievers: Motrin and Tylenol Associated: Bruising at the impact site Pertinent negatives: Denies shortness of breath, fever, cough, progressive bruising, palpitations PAST MEDICAL HISTORY Diagnosis Date - Acute gastritis - Adjustment disorder with mixed anxiety and depressed mood - Diaphragmatic hernia without mention of obstruction or gangrene Hiatal hernia - Esophageal reflux - Hyperlipidemia LDL goal < 130 04/17/2012 MEDICATIONS: citalopram (CELEXA) 20 mg tablet Take 1 tablet by mouth once daily. LORazepam (ATIVAN) 0.5 mg Take 1 tablet by mouth twice daily as needed (anxiety) for up to 7 days. omeprazole (PRILOSEC) 20 mg capsule Take 1 capsule by mouth once daily. ALLERGIES: ALLERGIES Allergen Reactions - Codeine - Cymbalta [Duloxetin* Mental Status Change - Prozac [Fluoxetine * - Sulfa (Sulfonamide * VITALS: BP 128/80 Pulse 88 Temp 36.5 ?C (97.7 ?F) Resp 18 Wt 61.7 kg (136 lb) LMP 02/07/2007 SpO2 97% BMI 22.29 kg/m? PHYSICAL EXAM: GEN: pleasant, no acute distress, alert HEENT: PERRL, EOMI, NECK: supple, HEART: regular rate, regular rhythm, no murmurs LUNGS: clear to auscultation, no wheezes or crackles, no increased WOB CHEST: Tender lower 6cm of rib cage from mid axillary line to the xiphoid. No step off. Mild ecchymosis. ABD: soft, non-distended, no masses palpated, tender LUQ EXT: no clubbing, no cyanosis, no edema ASSESSMENT/PLAN: 1. Rib contusion, left, initial encounter - ICD9: 922.1, ICD10: S20.212A We discussed similar treatment for rib contusion versus fracture. She will forego x-ray. Continue supportive care with Tylenol/ibuprofen and activity as tolerated. Encourage incentive inspiration to avoid pneumonia. Seek treatment early with symptoms of cough, shortness of breath, or fever. Jaya Heredia, [facility]04-29-2021 NoteHNO ID: [id number] Author: Meghna Elias APRN.PET ADOPTION COUNSELOR Service: ? Author Type: Nurse Practitioner Type: Progress Notes Filed: 06/22/2020 8:51 AM Note Text: This is a 59 year old female who presents today with: No chief complaint on file. HISTORY OF PRESENT ILLNESS: Uma Geller is a 59 year old female. No chief complaint on file. Patient of Dr. Saab presents to the office with red, hard, lump on right mendez started a couple weeks. No injury to the area that she is aware of. Refers that it is very itchy, no discharge. She accidentally nicked it when shaving legs. Another hard lump on right medial ankle that has been present for years. No fever or chills. PAST MEDICAL HISTORY: PAST MEDICAL HISTORY Diagnosis Date - Acute gastritis - Adjustment disorder with mixed anxiety and depressed mood - Diaphragmatic hernia without mention of obstruction or gangrene Hiatal hernia - Esophageal reflux - Hyperlipidemia LDL goal < 130 04/17/2012 PAST SURGICAL HISTORY Procedure Laterality Date - DELIVERY ONLY , low cervical - LIGATE FALLOPIAN TUBE - REMOVAL OF TONSILS,<12 Y/O Tonsillectomy ALLERGIES Codeine, Cymbalta [Duloxetine], Prozac [Fluoxetine Hcl], and Sulfa (Sulfonamide Antibiotics) MEDICATIONS Current Outpatient Medications Medication Sig - citalopram (CELEXA) 20 mg tablet Take 1 tablet by mouth once daily. - LORazepam (ATIVAN) 0.5 mg Take 1 tablet by mouth twice daily as needed (anxiety) for up to 7 days. - omeprazole (PRILOSEC) 20 mg capsule Take 1 capsule by mouth once daily. No current facility-administered medications for this visit. FAMILY HISTORY Problem Relation Age of Onset - Arthritis Mother normal pressure hydrocephalus with dementia - Cancer Father lymphoma - Alzheimer's Disease Maternal Grandmother - Heart Paternal Grandmother - Heart Paternal Grandfather - Alcohol/Drug Son - None Sister - None Sister - None Brother Social History Tobacco Use - Smoking status: Current Some Day Smoker Types: Cigarettes Last attempt to quit: 08/28/2006 Years since quittin.8 - Smokeless tobacco: Never Used Vaping Use - Vaping Use: Never used Substance Use Topics - Alcohol use: No - Drug use: No REVIEW OF SYSTEMS GENERAL: No weight loss, malaise or fevers/chills HEENT: Negative for frequent or significant headaches, No changes in hearing or vision. NECK: Negative for lumps, goiter, pain and significant neck swelling RESPIRATORY: Negative for cough, hemoptysis, wheezing, dyspnea or shortness of breath CARDIOVASCULAR: Negative for chest pain, leg swelling, orthopnea, or palpitations GI: No nausea, vomiting, or diarrhea/constipation. No hematochezia/melena. No heartburn or reflux symptoms. : No history of dysuria, frequency or incontinence MUSCULOSKELETAL: Negative for joint pain or swelling. SKIN: + lesions on right mendez and ankle ENDOCRINE: Negative for cold or heat intolerance, polyuria, polydipsia and goiter NEURO: No history of headaches, syncope, paralysis, seizures or tremors MOOD: Negative for depression, anxiety, or suicidal ideation. EXAM: BP 128/80 Pulse 76 Resp 16 LMP 02/07/2007 PHYSICAL EXAM: General Appearance: Well appearing, alert, in no acute distress, well-hydrated, well nourished. Skin: Positives: + lesion 0.75x0.5 cm raised, hard-fixed, erythematic lesion to right mendez, crusting in the center noted from shaving. 0.5x0.5 cm hard-fixed lesion on medial side of right ankle- raised, no erythema, light brown in color. No discharge. Eyes: Anicteric sclera. Extraocular movements are intact. Lungs: Lungs clear to auscultation. No wheezing, rhonchi, rales. Heart: RRR without murmur, gallop, or rubs. No ectopy. Extremities: No deformities, edema, skin discoloration, clubbing or cyanosis. Good capillary refill. Peripheral Pulses: Normal, Capillary refill <2secs, strong peripheral pulses, Pulses palpable. ASSESSMENT/PLAN: 1. Skin lesion - ICD9: 709.9, ICD10: L98.9 - Due to history and exam will refer patient to dermatology for further evaluation. - Prescription for antibiotic ointment provided to prevent bacterial skin infection. - Directed the patient to watch for worsening symptoms or signs of infection, she verbalizes understanding - Follow-up in the office as needed. - MUPIROCIN CALCIUM 2 % TOPICAL CREAM Follow up in the office as needed Discussed treatment plan and patient voices understanding. Patient's questions answered appropriately. Medications and potential side effects were discussed and patient voices understanding. Meghna Elias APRN.PET ADOPTION COUNSELOR This note was partially generated using [employer] voice recognition system. Note was reviewed for accuracy. There may be minor misspellings or grammar miscues with [employer] voice recognition.[facility]04-01-2021 Note HNO ID: [id number] Author: Jose D Gilliland (Tech) Service: ? Author Type: Manager Field Services Type: Progress Notes Filed: 05/25/2020 10:09 AM Note Text: Radiology Service Progress Note PATIENT NAME: Uma Geller DATE OF SERVICE: May 25, 2020 TIME: 10:09 AM PATIENT IDENTITY VERIFICATION COMPLETED USING TWO (2) IDENTIFIERS: Name and Date of confirmed by patient verbally. FALL SCREENING: Has the patient had 2 falls in the last year or 1 fall with injury or currently using an Ambulatory Assistive Device (Walker, Cane, Wheelchair, Crutches, etc.)? No PATIENT GENDER DATA: Female. status: : No status: NO. PATIENT RELEVANT IMPLANT DATA REVIEWED: Not Applicable RADIOLOGY DEPARTMENT: Mammography PERIPHERAL IV DATA: Not applicable SIGNED BY: Jose D Gilliland May 25, 2020 10:09 [facility]04-01-2021 NoteHNO ID: [id number] Author: Yarelis Erazo Service: ? Author Type: Nurse Practitioner Type: Progress Notes Filed: 05/25/2020 10:09 AM Note Text: Uma is a 59 year old who presents for an annual gynecologic exam without complaints. Postmenopausal: Yes since age 2006 HRT use: No. Last Pap: 07/28/2019 normal HPV: 07/29/2019 negative History of abnormal pap: Yes Last mammogram: 2019 normal History of abnormal mammogram: No Sexually active: Yes Pain with intercourse: No Postcoital bleeding: No Hot flashes: No Night sweats: No Vaginal dryness: No OB History T2 L2 SAB1 TAB0 Ectopic0 Multiple0 Live Births0 Comment: Son PAST MEDICAL HISTORY Diagnosis Date - Acute gastritis - Adjustment disorder with mixed anxiety and depressed mood - Diaphragmatic hernia without mention of obstruction or gangrene Hiatal hernia - Esophageal reflux - Hyperlipidemia LDL goal < 130 04/17/2012 PAST SURGICAL HISTORY Procedure Laterality Date - DELIVERY ONLY , low cervical - LIGATE FALLOPIAN TUBE - REMOVAL OF TONSILS,<12 Y/O Tonsillectomy FAMILY HISTORY Problem Relation Age of Onset - Arthritis Mother normal pressure hydrocephalus with dementia - Cancer Father lymphoma - Alzheimer's Disease Maternal Grandmother - Heart Paternal Grandmother - Heart Paternal Grandfather - Alcohol/Drug Son - None Sister - None Sister - None Brother SOCIAL HISTORY Social History Tobacco Use - Smoking status: Current Some Day Smoker Types: Cigarettes Last attempt to quit: 08/28/2006 Years since quittin.7 - Smokeless tobacco: Never Used Vaping Use - Vaping Use: Never used Substance Use Topics - Alcohol use: No - Drug use: No REVIEW OF SYSTEMS Abdomen: No abdominal pain, nausea, vomiting, diarrhea, or constipation. No bloating, early satiety, indigestion, or increased flatulence. Bladder: No dysuria, gross hematuria, urinary frequency, urinary urgency, or incontinence Breast: No breast lumps, nipple d/c, overlying skin changes, redness or skin retraction Allergies and current medication updated:Yes EXAM: Ht 5' 5.5 (1.66m) Wt 141 lb 9.6 oz (64.2kg) LMP 02/07/2007 BMI 23.20 kg/(m2). GENERAL: pleasant, female in no apparent distress HEENT: Normocephalic, atraumatic, mucus membranes moist and no lesions NECK: Supple, full range of motion, no adenopathy and thyroid normal DERMATOLOGY: Normal, without lesions, non-icteric and non-hirsute BREAST: soft, non-tender, symmetric, no dominant mass, normal nipple-areolar complex, no lymphadenopathy and no nipple discharge CHEST: Normal inspiratory effort ABDOMEN: soft, non-tender and no masses PELVIC: external genitalia normal, normal Bartholin's glands, urethra, Yardley's glands, no vulvar lesions, no cervical lesions, physiologic discharge present, normal appearing perineal body and perianal region BIMANUAL: uterus normal size, shape and consistency, no adnexal masses and non-tender RECTOVAGINAL: deferred. NEURO: alert and oriented x3,exam grossly non-focal EXTREMITIES: normal ASSESSMENT/PLAN: 1) Health maintenance: Pap/HPV up to date. Mammogram up to date Nutrition, exercise and routine health maintenance exams reviewed. Calcium/Vitamin D supplementation information provided. 2) Follow up one year or sooner as needed Yarelis Erazo APRN.[facility]04-01-2021 NoteHNO ID: [id number] Author: Magaly Saab III Service: ? Author Type: Physician Type: Progress Notes Filed: 05/25/2020 11:11 AM Note Text: SUBJECTIVE: This is a 59 year old female that is here today for medication review she has had a history of anxiety and depression following her son's unexpected a year or 2 ago. May is the anniversary month. However, she does feel that she can reduce Celexa from 40 mg daily to 20 mg daily. We did discuss a slow weaning program of 20 mg every other day alternating with 40 mg every other day for 1 week. She uses lorazepam very infrequently. no chest pain, angina, MIRAMONTES, cough, abd pain, change in BM, rectal bleeding, change in urination Current Outpatient Medications on File Prior to Visit Medication Sig - LORazepam (ATIVAN) 0.5 mg Take 1 tablet by mouth twice daily as needed (anxiety) for up to 7 days. - omeprazole (PRILOSEC) 20 mg capsule Take 1 capsule by mouth once daily. - citalopram (CELEXA) 40 mg tablet Take 1 tablet by mouth once daily. No current facility-administered medications on file prior to visit. PAST MEDICAL HISTORY Diagnosis Date - Acute gastritis - Adjustment disorder with mixed anxiety and depressed mood - Diaphragmatic hernia without mention of obstruction or gangrene Hiatal hernia - Esophageal reflux - Hyperlipidemia LDL goal < 130 04/17/2012 FAMILY HISTORY Problem Relation Age of Onset - Arthritis Mother normal pressure hydrocephalus with dementia - Cancer Father lymphoma - Alzheimer's Disease Maternal Grandmother - Heart Paternal Grandmother - Heart Paternal Grandfather - Alcohol/Drug Son - None Sister - None Sister - None Brother Social History Tobacco Use - Smoking status: Current Some Day Smoker Types: Cigarettes Last attempt to quit: 08/28/2006 Years since quittin.7 - Smokeless tobacco: Never Used Vaping Use - Vaping Use: Never used Substance Use Topics - Alcohol use: No - Drug use: No BP 118/82 (BP Site: Left Arm, BP Position: Sitting, BP Cuff Size: Regular Adult) Pulse 72 Resp 16 Wt 64 kg (141 lb) LMP 02/07/2007 BMI 23.46 kg/m? OBJECTIVE: APPEARANCE Well appearing, alert, in no acute distress, well-hydrated, well nourished. NECK Supple, no adenopathy; thyroid symmetric, normal size, no bruits HEART RRR with normal S1 and S2, no murmurs, no gallops, no JVD appreciated LUNG clear to auscultation ABDOMEN bowel sounds normoactive, no bruits, soft, non-tender, non-distended, without organomegaly or palpable masses, no tenderness to palpation EXTREMITIES Extremities normal, No deformities, No skin discoloration and No edema Appearance: well dressed well groomed, cooperative and pleasant Behavior: good eye contact Speech: fluent and coherent Mood: euthymic Affect: appropriate Perceptions: none Thought process: goal directed Thought Content: normal Intelligence level: normal Insight: good Judgment: good ASSESSMENT: situational anxiety and depression--well controlled tobacco use disorder PLAN: healthy diet and regular exercise wean and reduce celexa 20 mg daily consider quitting smoking stool testing for colon cancer screening labs as ordered continue to use lorazepam sparingly as needed Magaly Saab III MD Medical Decision Making: Problems: Moderate: 2+ stable chronic illnesses Data: Unique test(s) ordered: 3+ Risk: Moderate: Drug management Medical Decision Making Level: 4 [facility] noteNo assessment information availableWUniversity [facility] Work Phone: Evaluation note* Diagnosis Onset Date Resolution Status History of HPV infection acu te Encounter for routine gynecological examination noneactive [facility] Work Phone: Evaluation note* Diagnosis Onset Date Resolution Status Tinnitus acute [facility] Work Phone: Progress note Author Aicha Garvin [facility] Note Date/Time September 14, 2024 8:13 am [facility] [address] [place] [address], [address] [place] [address] OFFICE VISIT Date of Service: 09/14/24 MR#: [id number] Acct: [id number] Name: UMA GELLER Rep #: [id number] : 1960 Provider: CHAKA Garvin Age/Sex: 63/F Location: [facility] [place] Status: Signed Intake Vital Signs 12/06/23 19:54 09/14/24 07:57 09/14/24 08:02 Height 5 ft 5 in 5 ft 5 in 5 ft 5 in Weight: 150 lb 4 oz BMI 25.0 BP 124/72 H 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: 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 Required: No Is patient in pain?: No Allergies codeine Allergy (Intermediate, Verified 09/14/24 07:56) Nausea/Vom/Diarrhea Sulfa (Sulfonamide Antibiotics) Adverse Reaction (Verified 09/14/24 07:56) Nausea/Vom/Diarrhea Medications ?Medication ?Instructions ?Recorded ?Confirmed ?Type citalopram 20 mg tablet 20 mg PO DAILY depression 09/14/24 History omeprazole 20 mg capsule,delayed 20 mg PO DAILY gerd 0 9/30/19 07/22/25 History release lorazepam 0.5 mg tablet (Ativan) 0.5 mg PO DAILY PRN 0 08/13/21 09/14/24 History atorvastatin 10 mg tablet 10 mg PO QDAY 09/08/2309/14 History Is last menstrual period known: No Post menopausal: Yes Patient : No : No PFSH Surgical History History of bilateral ligation of fallopian tubes S/P tonsillectomy Delivery by section Family History Other Cancer Heart disease Social History household members: family current occupational status: retired Smoking Status: Light Smoker (<10/day) alcohol intake: never substance use type: does not use what type of physical activity do you participate in: walking frequency: 1-2 times per week seatbelt use: always do you feel safe at home: Yes additional social history: History 2 Elective abortions 2 Hx Para Spontaneous abortions Hx # Term Pregnancies Ectopic pregnancies Hx # Pregnancies Multiple births # of living children 2 Past Pregnancies Del. Date Name GA/Weeks Outcome Route Bth Weight Gen Labor Lgth Anesthesia Del Locatn Provider FOB Unknown Keith 1985 Unknown [place] 1992 HPI Encounter for routine gynecological examination Details: UMA GELLER is a 63 year old who presents for annual exam. Denies concerns. Same sexual partner Last PAP: 2021 History of abnormal PAP: +HPV 2018 Last mammogram: 08/2023 History of abnormal mammogram: no Colon cancer screening: scheduled 10/05/24 Other preventative health care screenings: Jennifer Female Reproductive History Questions: metorrhagia: No, sexually active: Yes, dyspareunia: No and PCB: No ROS Const Constitutional: Denies fatigue, weight gain or weight loss Cardio Card: Denies chest pain Resp Resp: Denies cough or dyspnea on exertion GI GI: Denies abdominal pain, bloating, change in stool character, constipation or vomiting : Reports as per HPI; Denies difficulty voiding, pelvic pain, urinary frequency, urinary incontinence,urinary urgency, vaginal discharge or vaginal pruritus Exam Const General: cooperative, healthy appearing, no acute distress and well developed Orientation: alert, oriented to person and oriented to place HENOK Head: normal to inspection Neck Neck: normal visual inspection Thyroid: thyroid normal Lymphatic: no lymphadenopathy noted Chest Breast inspection: normal inspection of the breasts and normal inspection of theaxillae Breast palpation: normal palpation of the breasts, normal palpation of the axillae and no axillary lymphadenopathy Resp Effort & Inspection: normal respiratory effort GI Palpation: soft, no masses and nontender Rectal Exam: deferred External Female Exam: normal external appearance and normal appearance of the urethra Urethra: normal appearance of the urethra and normal palpation Speculum Exam - Vagina: normal appearance of the vagina and normal vaginal discharge Speculum Exam - Cervix: normal appearance of the cervix Bimanual Exam- Vagina & Uterus: normal bimanual exam, uterine size normal, uterine shape normal and non-tender Bimanual Exam- Adnexa, other: normal adnexae, no masses, normal and non-tender Pelvic Support: normal Neuro General: patient alert and patient oriented x3 Psych Affect: normal affect Coding Level of Care Code Pelvic/Breast Diagnoses Encounter for gynecological examination with abnormal finding Z01.411 Gynecological examination findings: abnormal findings PRESENT History of HPV infection Z86.19 Assessment and Plan Assessment and Plan (1) Encounter for routine gynecological examination: Qualifiers: Gynecological examination findings: abnormal findings PRESENT QualifiedCode(s): Z01.411 - Encounter for gynecological examination (general) (routine) with abnormal findings (2) History of HPV infection: Status: Acute Comment: 2019 neg colp @ [facility]. Neg pap and HPV 2021. rpt 3 /2024: Plan Completed breast and pelvic exam Reviewed diet and exercise Pap thin prep pap with HPV Mammogram today pending breast self exam encouraged monthly Colonoscopy scheduled 10/05/24 Bone density with PCP RTO 1 year, prn with problems Aicha Garvin PET ADOPTION COUNSELOR Clinical Quality Measures Falls Risk Screening/Assistive Devices Have you fallen in the past year?: No Smoking Screening Smoking Status: Current some day smoker 09/14/24 0813 <Electronically signed by Aicha amin NP FLANGE MACHINE OPERATOR-C> Date _ Aicha Garvin NP FLANGE MACHINE OPERATOR-C [place] Signature: Date (if applicable) CC: ~ [facility] Work Phone: Reason for referral (narrative)No reason for referral information availableWUniversity [facility]als [facility] Work Phone: Summary Purpose Family History Relationship Condition Age at Onset Recorded Date/T damaso Unknown Family History?- Unknown October 272018 6:33pm Family History?Heart Disease, - Unknown March 30, 2019 5:53pm Family History?Stroke Unknown 2018 6:33pm Relationship Condition Age at Onset Recorded Date/T damaso Not Specified Cardiac disease Unknown Malignant neoplasm Unknown Advance Directives Advance Directive Response Recorded Date/ Time Living Will No March 30 6:30pm Power of Barrel Plater No March 30, 2019 6:30pm Advance Directive Response Recorded Date/ Time Living Will No May 29, 2022 8:51am Power of Barrel Plater No May 29 8:51am Chief Complaint and Reason for Visit 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) Reason for Visit History of HPV infec tion Encounter for routine gynecological examination 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 Reason for Visit History of HPV infec tion Encounter for routine gynecological examination Chief Complaint TOBACCO ABUSE 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 Reason for Visit History of HPV infec tion Encounter for routine gynecological examination Chief Complaint BILAT EAR COMPLAINT Reason for Visit Tinnitus Chief Complaint Admit Date SINUS CONGESTION August 06, 2024 10:3 8am Chief Complaint Admit Date SINUS CONGESTION August 06, 2024 10:3 8am 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 14, 2024 7:50 am Reason for Visit Admit Date Acute sinusitis August 06, 2024 10:3 8am History of HPV infection September 14, 2024 7:50am Encounter for routine gynecological exam ination September 14, 2024 7:50am Additional Source Comments INFORMATION SOURCE (unrecogn ized section and content) DATE CREATED AUTHOR 08/19/2017 [facility] DATE CREATED AUTHOR AUTHOR'S ORGANIZ ATION 03/20/2021 [facility] DATE CREATED AUTHOR AUTHOR'S ORGANIZ ATION 09/13/2024 [facility] Goals (unrecognized section and content) Goals may be documented in a n alternate sectionGoals may be documented in an alternate sectionGoals may be documented in an alternate sectionGoals may be documented in an alternate sectionGoals may be documented in an alternate sectionGoals may be documented in an alternate sectionGoals may be documented in an alternate sectionGoals may be documented in an alternate sectionGoals may be documented in an alternate section Care Teams (unrecognized sec tion and content) Team Status: Active Member Role Status Dates Dr. Magaly Saab III, MD Family Provider Active Dr. Walt Flores MD Primary Care Provider Active Team Status: Inactive Member Role Status Dates Dr. Walt Flores MD Primary Care Provider, Referring Provider Active Aicha Garvin FLANGE MACHINE OPERATOR, FLANGE MACHINE OPERATOR-C Attending Provider Active Team Status: Inactive Member Role Status Dates Dr. Walt Flores MD Primary Care Provi rosendo, Attending Provider, Referring Provider Active Team Status: Inactive Member Role Status Dates Dr. Walt Flores MD Primary Care Provider Active Aicha Garvin NP, FLANGE MACHINE OPERATOR-C Attending Provider, Referring Provider Active Team Status: Inactive Member Role Status Dates Dr. Walt Flores MD Primary Care Provider, Referring Provider Active Eleuterio TATUM PA Attending Provider Active Team Status: Inactive Member Role Status Dates Dr. Walt Flores MD Primary Care Provider, Attending Provider Active Team Status: Inactive Member Role Status Dates Dr. Walt Flores MD Primary Care Provider Active Start: June 09, 2024 End: June 09, 2024 Dr. Walt Flores MD Attending Provider Active Start: June 09, 2024 End: June 09, 2024 Dr. Walt Flores MD Referring Provider Active Start: June 09, 2024 End: June 09, 2024 Team Status: Inactive Member Role Status Dates Dr. Walt Flores MD Primary Care Provider Active Start: August 06, 2024 End: August 06, 2024 Dr. Walt Flores MD Referring Provider Active Start: August 06, 2024 End: August 06, 2024 Keith TATUM PA Attending Provider Active Sta rt: August 06, 2024 End: August 06, 2024 Team Status: Active Member Role/Relationship Status Dates Dr. Walt Flores MD Primary Care Provider Active Team Status: Inactive Member Role/Relationship Status Dates Dr. Walt Flores MD Primary Care Provider Active Start: June 09, 2024 End: June 09, 2024 Dr. Walt Flores MD Attending Provider Active Start: June 09, 2024 End: June 09, 2024 Dr. Walt Flores MD Referring Provider Active Start: June 09, 2024 End: June 09, 2024 Team Status: Inactive Member Role/Relationship Status Dates Dr. Walt Flores MD Primary Care Provider Active Start: August 06, 2024 End: August 06, 2024 Dr. Walt Flores MD Referring Provider Active Start: August 06, 2024 End: August 06, 2024 DEEPTI Alcantar Attending Provider Active Sta rt: August 06, 2024 End: August 06, 2024 Team Status: Inactive Member Role/Relationship Status Dates Dr. Walt Flores MD Primary Care Provider Active Start: September 14, 2024 End: September 14, 2024 Dr. Walt Flores MD Referring Provider Active Start: September 14, 2024 End: September 14, 2024 Aicha Garvin NP, FLANGE MACHINE OPERATOR-C Attending Provider Active Start: September 14, 2024 End: September 14, 2024 FOR RECORDS PERTAINING TO PATIENTS WHO ARE OR HAVE BEEN ENROLLED IN A CHEMICAL DEPENDENCY/SUBSTANCEABUSE PROGRAM, SOME INFORMATION MAY BE OMITTED. This clinical summary was aggregated from multiple sources. Caution should be exercised in using it in the provision of clinical care. This summary normalizes information from multiple sources, and as a consequence, information in this document may materially change the coding, format and clinical context of patient data. In addition, data may be omitted in some cases. CLINICAL DECISIONS SHOULD BE BASED ON THE PRIMARY CLINICAL RECORDS. [employer] provides no warranty or guarantee of the accuracy or completeness of information in this document.
[2024-09-16 11:08] LABS: HPV APTIMA, High Risk Negative (Negative)
== END | disposition home or self-care (01) ==
LOC: LABSPEC 10:17
PROVIDERS: PCP Family Medicine; Visit Provider Nurse Practitioner Women's Health
DX: Z12.4 Encounter for screening for malignant neoplasm of cervix (principal)
CPT/HCPCS: 87624; 88175; G0145

== ENCOUNTER → 2024-09-14 | Outpatient (CLI) | payer MEDICARE, SELFPAY ==
--- NOTE | 2024-09-14 10:33 | BI_ITS ---
EXAM: SCRN MAMM (CAD)W/KLEVER BILAT DATE: 09/14/2024 CLINICAL HISTORY: F, Age 63 y/o , SCREENING MAMMOGRAM FOR BREAST CANCER TECHNIQUE: SCRN MAMM (CAD)W/KLEVER BILAT COMPARISON: Prior exam(s) were compared FINDINGS: TISSUE DENSITY: The breasts are heterogeneously dense, which may obscure small masses. Bilateral Breast Mammographic Findings: No suspicious masses, calcifications or other abnormalities are identified. BI/SCRN MAMM (CAD)W/KLEVER BILAT IMPRESSION: No mammographic evidence of malignancy in either breast OVERALL FINAL ASSESSMENT BI-RADS 1: NEGATIVE. RECOMMENDATION: Routine annual follow-up in 1 Year A letter with findings and recommendations will be mailed to the patient. Reading Location: [id number]
== END | disposition home or self-care (01) ==
LOC: OPBI 10:32
PROVIDERS: PCP Family Medicine; Referring Provider Nurse Practitioner Women's Health; Visit Provider Nurse Practitioner Women's Health
DX: Z12.31 Encounter for screening mammogram for malignant neoplasm of breast (principal)
CPT/HCPCS: 77063; 77067

== ENCOUNTER 2024-10-05 11:14 | Day surgery (SDC) | payer MEDICARE, SELFPAY ==
--- NOTE | 2024-09-30 13:25 | PAT.ANE_ITS ---
Pre-Assessment Diagnosis/Proposed Procedure Planned Operative Procedure(s): Colonoscopy - Open Access Anesthesia History Anesthesia History - medical insurance coding specialist: Anesthesia History - medical insurance coding specialist Hx Hospitalization No 09/30/24 13:12 Any Problems With Anesthesia No 09/30/24 13:12 Cholinesterase deficiency No 09/30/24 13:12 You/Your Family Experience No 09/30/24 13:12 fever (hyperthermia) with Relationship Recent Exposure to Contagious Disease Does patient have nerve No 09/30/24 13:12 stimulator Patient instructed to have device shut off --Does patient have Pacemaker or ICD? When Was Last Pacemaker Check QUESTION #4 FULL TEXT: You/Your Family Experience fever (hyperthermia) with Anesthesia Last Oral Intake Last Oral intake: Last Oral Intake NPO since Meds taken in AM with sips of water? Meds patient instructed to take am of surgery PONV PONV - medical insurance coding specialist: PONV - medical insurance coding specialist Female Yes 09/30/24 13:12 HX of Motion Sickness Yes 09/30/24 13:12 HX of N/V After Surgery Yes 09/30/24 13:12 Non-Smoker No 09/30/24 13:12 Duration of Surgery greater No 09/30/24 13:12 than 60 minutes Number of Risk Factors 3 09/30/24 13:12 PONV Score Moderate Risk 09/30/24 13:12 Height & Weight Height & Weight: Anesthesia: Height & Weight Height 5 ft 5 in 12/06/23 19:54 Respiratory Assessment Respiratory Assessment - medical insurance coding specialist: Respiratory Tract Infection Hx - medical insurance coding specialist Hx Respiratory Tract Infection No 09/30/24 13:12 STOP Sleep Apnea STOP Sleep Apnea - medical insurance coding specialist: STOP Sleep Apnea - medical insurance coding specialist Hx Hypertension No 09/30/24 13:12 Hx Sleep Apnea No 09/30/24 13:12 CPAP BIPAP Do you snore loudly (louder No 09/30/24 13:12 than talking or can be heard Do you often feel tired/ No 09/30/24 13:12 fatigued/ sleepy during daytime? Has anyone observed you stop No 09/30/24 13:12 breathing during sleep? STOP Results Negative 09/30/24 13:12 QUESTION #5 FULL TEXT : Do you snore loudly (louder than talking or can be heard through closed doors)? 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 Specify any problems Hx of Preganancy in last 3 No 09/30/24 13:12 Months Nurse Filling Out Transfusion JZOLLINGE 09/30/24 13:12 & Questions: Date: 09/30/24 09/30/24 13:12 Time: 13:13 09/30/24 13:12 Patient unable to answer at this time (ie. confused, unrespo /Reproduction History /Reproductive History - medical insurance coding specialist: /Reproductive Hx- medical insurance coding specialist Hx Now No 09/30/24 13:12 Gestational Age (in weeks): EDC: Hx Hx Para Hx Section SAB No 09/30/24 13:12 [facility] Medical History (Updated 09/30/24 @ 13:12 by Sheron Guerin) Wears glasses Depression Anxiety Heartburn Gastric reflux Smoker History of echocardiogram History of stress test Home Medications ?Medication ?Instructions ?Recorded ?Last Taken ?Type citalopram 20 mg tablet 20 mg PO DAILY depression 03/30/19 History omeprazole 20 mg capsule,delayed 20 mg PO DAILY gerd 0 11/23/18 03/30/19 History release lorazepam 0.5 mg tablet (Ativan) 0.5 mg PO DAILY PRN a nxiety 08/13/21 Unknown History atorvastatin 10 mg tablet 10 mg PO QDAY 09/08/23 Unkno wn History Allergy/AdvReac Type Severity Reaction Status Date / Time codeine Allergy Intermediate Nausea/Vom/ Verified 09/30/24 13:06 Diarrhea Sulfa (Sulfonamide AdvReac Nausea/Vom/ Verified 09/30/24 13:06 Antibiotics) Diarrhea Family History Other Cancer Heart disease Surgical History History of bilateral ligation of fallopian tubes S/P tonsillectomy Delivery by section Social History household members: family current occupational status: retired Smoking Status: Light Smoker (<10/day) alcohol intake: never substance use type: does not use what type of physical activity do you participate in: walking frequency: 1-2 times per week seatbelt use: always do you feel safe at home: Yes additional social history: Audit: Pertinent Findings Pertinent Findings EKG Perinent findings: Normal sinus rhythm Normal ECG Stress test pertinent findings: [facility] [address] [place] [address] Stress Test Echo W/Contrast MR#: [id number] Acct: [id number] Name: PRECIOUS GELLER Rep #: [id number] : 1960 58 From: Walt Santiago MD Primary Care: Angel Saab III, MD Status: ADM SVEN Ordering Dr: Julisa Flores MD Sex: F C Reason For Study: CHEST PAIN Stress Results Protocol: Stress Echocardiogram Maximum Predicted HR: 160 bpm Target HR: 136 bpm % Maximum Predicted HR: 98 % DurationHeart Rate Stage (mm:ss) (bpm) BP Comment BASELINE 76 120/782CC DILUTED DEFINITY USED KEO PROTOCOL- STAGE 1 3:00 109 134/80NO SX KEO PROTOCOL- STAGE 2 3:00 126 138/82NO SX KEO PROTOCOL- STAGE 3 3:00 157 140/80SL SOB, SL FATIGUE RECOVERY 86 124/74 Stress Duration: 9:00 mm:ss Maximum Stress HR: 157 bpm METS: 10 Baseline Echocardiogram Findings Stress Echo Wall motion Data Resting WM Intermediate WM Stress WM Resting Wall Motion Wall Motion Stress All segments Normal. All segments Hyperkinetic. Ejection Fraction 60 %. Ejection Fraction 75 %. Stress Results Heart rate response: Appropriate Blood pressure response: Normal resting BP-appropriate response Arrhythmias: None Functional capacity: Good Stopped secondary to: Dyspnea/fatigue. EKG Data ECG Baseline: NSR. ECG Stress: No Obvioius ECG Changes. Symptoms with Stress No complaint of chest discomfort during exercise or recovery. Interpretation Summary Negative (Adequate) Stress Echocardiogram Normal exercise myocardial perfusion stress test at a moderate workload Preserved ejection fraction. Additional pertinent findings: cxr No radiographic evidence of acute cardiopulmonary disease. Recommendation Anesthesia Recommendation Anesthesia recommendation: OPTIMIZED for anesthesia
[2024-10-05] VITALS (7 sets, daily range): BP systolic 95–121; BP diastolic 64–85; PULSE 63–78; RESP 16; TEMP 36.2–37; O2SAT 96–97; BMI 24.4
[2024-10-05] MEDS: Lactated Ringers 1,000 ML 15 ML IV (11:37)
--- NOTE | 2024-10-05 12:23 | PRE.ANES_ITS ---
ASA Classification* ASA Classification ASA Classification: 2 Assessment & Plan Anesthesia* Anesthesia Assessment Anesthesia Assessment: Discussed sedation and/or anesthesia options, risks, benefits, and alternatives with patient/parents/legal guardian/POA. Questions invited. The patient/parents/legal guardian/POA seems to understand and agrees to proceed with anesthesia plan. Reviewed the physical assessment, medical history, allergy history and patient home medications list prior to surgery/procedure/anesthetic and documented any changes. Performed airway and anesthesia risk assessments. Anesthesia Type Anesthesia Type: MAC History Source History Obtained from:: Patient and Chart Anesthesia Focused Assessment* Temperature: 98.6 F Pulse Rate: 78 Blood Pressure: 121/85 Respiratory Rate: 16 Pulse Ox: 96 Oxygen Delivery Method: Room Air Airway Assessment Mouth opens: >3 cm Mallampati Score: I Teeth Condition: Intact Neck Range of motion (ROM): Full ROM Labs Anesthesia Preop lab: CBC WBC 5.5 K/mm3 (4.4-11.0) 12/06/23 20:18 12/06/23 RBC 4.14 M/mm3 (4.2-5.4) L 12/06/23 20:18 12/06/23 Hgb 13.3 g/dL (12.0-15.0) 12/06/23 20:18 12/06/23 Hct 39.3 % (37-47) 12/06/23 20:18 12/06/23 Plt Count 185 K/mm3 (150-450) 12/06/23 20:18 12/06/23 CHEMISTRY Potassium 4.2 mmol/L (3.3-5.1) 06/09/24 11:29 06/09/24 Sodium 139 mmol/L (133-145) 06/09/24 11:29 06/09/24 BUN 13 mg/dL (4-19) 06/09/24 11:06/09/24 Creatinine 0.79 mg/dL (0.70-1.20) 06/09/24 11:06/09/24 Glucose 92 mg/dL (70-99) 06/09/24 11:29 06/09/24 TSH 0.48 uIU/mL (0.358-3.74) 11/08/20 07:09 COAG Pre-Assessment Diagnosis/Proposed Procedure Planned Operative Procedure(s): Colonoscopy - Open Access Anesthesia History Anesthesia History - lighter captain: Anesthesia History - lighter captain Hx Hospitalization No 09/30/24 13:12 Any Problems With Anesthesia No 09/30/24 13:12 Cholinesterase deficiency No 09/30/24 13:12 You/Your Family Experience No 09/30/24 13:12 fever (hyperthermia) with Relationship Recent Exposure to Contagious No 10/05/24 11:31 Disease Does patient have nerve No 09/30/24 13:12 stimulator Patient instructed to have device shut off --Does patient have Pacemaker No 10/05/24 11:31 or ICD? When Was Last Pacemaker Check QUESTION #4 FULL TEXT: You/Your Family Experience fever (hyperthermia) with Anesthesia Last Oral Intake Last Oral intake: Last Oral Intake NPO since 09:00 10/05/24 11:31 Meds taken in AM with sips of Yes 10/05/24 11:31 water? Meds patient instructed to see mar 10/05/24 11:31 take am of surgery PONV PONV - lighter captain: PONV - lighter captain Female Yes 09/30/24 13:12 HX of Motion Sickness Yes 09/30/24 13:12 HX of N/V After Surgery Yes 09/30/24 13:12 Non-Smoker No 09/30/24 13:12 Duration of Surgery greater No 09/30/24 13:12 than 60 minutes Number of Risk Factors 3 09/30/24 13:12 PONV Score Moderate Risk 09/30/24 13:12 Height & Weight Height & Weight: Anesthesia: Height & Weight Height 5 ft 5 in 10/05/24 11:31 Weight: 66.678 kg 10/05/24 11:31 Body Mass Index (BMI) 24.4 10/05/24 11:31 Respiratory Assessment Respiratory Assessment - lighter captain: Respiratory Tract Infection Hx - lighter captain Hx Respiratory Tract Infection No 09/30/24 13:12 STOP Sleep Apnea STOP Sleep Apnea - lighter captain: STOP Sleep Apnea - lighter captain Hx Hypertension No 09/30/24 13:12 Hx Sleep Apnea No 09/30/24 13:12 CPAP BIPAP Do you snore loudly (louder No 09/30/24 13:12 than talking or can be heard Do you often feel tired/ No 09/30/24 13:12 fatigued/ sleepy during daytime? Has anyone observed you stop No 09/30/24 13:12 breathing during sleep? STOP Results Negative 09/30/24 13:12 QUESTION #5 FULL TEXT : Do you snore loudly (louder than talking or can be heard through closed doors)? 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 Specify any problems Hx of Preganancy in last 3 No 09/30/24 13:12 Months Nurse Filling Out Transfusion JZOLLINGE 09/30/24 13:12 & Questions: Date: 09/30/24 09/30/24 13:12 Time: 13:13 09/30/24 13:12 Patient unable to answer at this time (ie. confused, unrespo /Reproduction History /Reproductive History - lighter captain: /Reproductive Hx- lighter captain Hx Now No 09/30/24 13:12 Gestational Age (in weeks): EDC: Hx Hx Para Hx Section SAB No 09/30/24 13:12 Active Medications Active Medications: Current Medications Generic Name Dose Route Start Last Admin Trade Name Freq PRN Reason Stop Dose Admin Lactated Ringer's 1,000 mls @ 15 mls/hr 10/05/24 11:30 10/05/24 11:37 IV 15 mls/hr .Q48H GERRI Administration PFSH Medical History (Updated 09/30/24 @ 13:12 by Sheron Guerin) Wears glasses Depression Anxiety Heartburn Gastric reflux Smoker History of echocardiogram History of stress test Home Medications ?Medication ?Instructions ?Recorded ?Last Taken ?Type citalopram 20 mg tablet 20 mg PO DAILY depression 10/05/24 History omeprazole 20 mg capsule,delayed 20 mg PO DAILY gerd 0 11/23/18 10/05/24 History release lorazepam 0.5 mg tablet (Ativan) 0.5 mg PO DAILY PRN a nxiety 08/13/21 Unknown History atorvastatin 10 mg tablet 10 mg PO QDAY 09/08/23 Unkno wn History Allergy/AdvReac Type Severity Reaction Status Date / Time codeine Allergy Intermediate Nausea/Vom/ Verified 10/05/24 11:30 Diarrhea Sulfa (Sulfonamide AdvReac Nausea/Vom/ Verified 10/05/24 11:30 Antibiotics) Diarrhea Family History Other Cancer Heart disease Surgical History History of bilateral ligation of fallopian tubes S/P tonsillectomy Delivery by section Social History household members: family current occupational status: retired Smoking Status: Current some day smoker tobacco type: cigarettes alcohol intake: never substance use type: does not use what type of physical activity do you participate in: walking frequency: 1-2 times per week seatbelt use: always do you feel safe at home: Yes additional social history: Review of Systems (Anesthesia) ROS Narrative System reviewed and no additional complaints, except as documented.
--- NOTE | 2024-10-05 12:31 | HP.PCM_ITS ---
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 She had a colonoscopy approximately 10 years ago and it was normal. She has a past medical history of hiatal hernia associated gastroesophageal reflux disease with mild anxiety and depression that are controlled with medications. All other 16 review of systems are negative except those mentioned in HPI. [facility] Medical History Wears glasses Depression Anxiety Heartburn Gastric reflux Smoker History of echocardiogram History of stress test Home Medications ?Medication ?Instructions ?Recorded ?Last Taken ?Type citalopram 20 mg tablet 20 mg PO DAILY depression 10/05/24 History omeprazole 20 mg capsule,delayed 20 mg PO DAILY gerd 0 11/23/18 10/05/24 History release lorazepam 0.5 mg tablet (Ativan) 0.5 mg PO DAILY PRN a nxiety 08/13/21 Unknown History atorvastatin 10 mg tablet 10 mg PO QDAY 09/08/23 Unkno wn History Allergy/AdvReac Type Severity Reaction Status Date / Time codeine Allergy Intermediate Nausea/Vom/ Verified 10/05/24 11:30 Diarrhea Sulfa (Sulfonamide AdvReac Nausea/Vom/ Verified 10/05/24 11:30 Antibiotics) Diarrhea Family History Other Cancer Heart disease Surgical History History of bilateral ligation of fallopian tubes S/P tonsillectomy Delivery by section Social History household members: family current occupational status: retired Smoking Status: Current some day smoker tobacco type: cigarettes alcohol intake: never substance use type: does not use what type of physical activity do you participate in: walking frequency: 1-2 times per week seatbelt use: always do you feel safe at home: Yes additional social history: ROS Constitutional Constitutional: Denies fatigue, fever(s), poor appetite, weight gain or weight loss Gastrointestinal Gastrointestinal: Denies belching, bloating, change in bowel habits, change in stool character, chewing difficulty, coffee ground emesis, constipation, cramping, diarrhea, dyspepsia, dysphagia, early satiety, excessive flatus, fecal incontinence, heartburn, hematemesis, hematochezia, hemorrhoids, loose stools, melena, nausea, odynophagia, rectal bleeding, tenesmus, vomiting or weight changes Vital Signs Vital Signs Vital Signs: 10/05/24 11:31 10/05/24 11:31 10/05/24 12:27 Temperature 98.6 F 98.6 F Temperature Source Temporal Pulse Rate 78 78 Respiratory Rate 16 16 Respiratory Pattern Normal Blood Pressure 121/85 H 121/85 H Blood Pressure Mean 97 Blood Pressure Source Monitor Blood Pressure Position Semi-Fowlers Blood Pressure Location Right Arm Pulse Ox 96 96 Oxygen Delivery Method Room Air Room Air Weight Weight: 147 lb Body Mass Index (BMI) 24.4 Physical Exam Const alert, oriented x3, no apparent distress and healthy appearing General Appearance: cooperative GI normal to inspection, nondistended, normoactive bowel sounds, soft to palpation, non-tender and non-distended Percussion: normal to percussion Rectal Exam: deferred Assessment & Plan Assessment/Plan (1) Screening for colon cancer: PLAN: She was explained alternatives, benefits, risk including not withstanding bleeding, infection, sepsis, perforation, need for emergent surgery . She will have an ASA of 3.
--- NOTE | 2024-10-05 13:08 | PCM.POST.ANE ---
Anesthesia: Postop Eval I Current Vital Signs Temperature: 97.2 F Pulse Rate: 67 Blood Pressure: 95/64 Respiratory Rate: 16 Pulse Ox: 97 Oxygen Delivery Method: Room Air Assessment Airway patent: Yes Spontaneous unlabored respirations: Yes Mental status: Asleep nausea: No Vomiting: No Anesthesia Complication: No Fluid Hydration Crystalloid volume administer (ml): 500 Total IV fluid infused: 500 Progress Note Anesthesia document: Postop Eval 1 completed: Yes
--- NOTE | 2024-10-05 13:13 | OP.COLON_ITS ---
Patient Name: Uma Perry Procedure Date: 10/05/2024 12:36 PM Date of : 1960 Age: 63 Procedure: Colonoscopy Indications: Screening for colorectal malignant neoplasm Providers: DO Mague Ferguson MD: Walt Flores MD Medicines: Monitored Anesthesia Care Patient Profile: This is a 63 year old female. Refer to note in patient chart for documentation of history and physical. Last Colonoscopy: several years ago. Complications: No immediate complications. Procedure: Pre-Anesthesia Assessment: - Prior to the procedure, a History and Physical was performed, and patient medications and allergies were reviewed. The patient is competent. The risks and benefits of the procedure and the sedation options and risks were discussed with the patient. All questions were answered and informed consent was obtained. Patient identification and proposed procedure were verified by the physician in the pre-procedure area. Mental Status Examination: alert and oriented. Airway Examination: normal oropharyngeal airway and neck mobility. Respiratory Examination: clear to auscultation. CV Examination: normal. Prophylactic Antibiotics: The patient does not require prophylactic antibiotics. Prior Anticoagulants: The patient has taken no anticoagulant or antiplatelet agents. ASA Grade Assessment: II - A patient with mild systemic disease. After reviewing the risks and benefits, the patient was deemed in satisfactory condition to undergo the procedure. The anesthesia plan was to use monitored anesthesia care (MAC). Immediately prior to administration of medications, the patient was re-assessed for adequacy to receive sedatives. The heart rate, respiratory rate, oxygen saturations, blood pressure, adequacy of pulmonary ventilation, and response to care were monitored throughout the procedure. The physical status of the patient was re-assessed after the procedure. After I obtained informed consent, the scope was passed under direct vision. Throughout the procedure, the patient's blood pressure, pulse, and oxygen saturations were monitored continuously. The Colonoscope was introduced through the anus and advanced to the cecum, identified by appendiceal orifice and ileocecal valve. The patient tolerated the procedure well. Scope In: 12:47:29 PM Scope Withdrawal Time 0 hours 8 minutes 1 second Scope Out: 1:00:49 PM Total Procedure Duration Time 0 hours 13 minutes 20 seconds Findings: The perianal and digital rectal examinations were normal. Scattered small-mouthed diverticula were found in the sigmoid colon, descending colon, splenic flexure and hepatic flexure. Impression: - Diverticulosis in the sigmoid colon, in the descending colon, at the splenic flexure and at the hepatic flexure. - No specimens collected. Recommendation: - Discharge patient to home [Means]. - Repeat colonoscopy in 10 years for screening purposes. - Continue present medications. Procedure Code(s): --- Professional --- G0121, Colorectal cancer screening; colonoscopy on individual not meeting criteria for high risk CPT copyright 2021 [employer]. All rights reserved. The codes documented in this report are preliminary and upon education reporter review may be revised to meet current compliance requirements. Raghavendra Aguayo DO 10/05/2024 1:12:59 PM This report has been signed electronically. Number of Addenda: 0 Note Initiated On: 10/05/2024 12:36 PM
--- NOTE | 2024-10-05 13:13 | OP.PROVAT_ITS ---
10/05/2024 Walt Flores MD [address] [id number] Re : Colonoscopy procedure for [facility] Dear Dr. Flores This procedure was performed on Saturday, October 05, 2024. My impressions and recommendations are as follows: Impressions : - Diverticulosis in the sigmoid colon, in the descending colon, at the splenic flexure and at the hepatic flexure. - No specimens collected. Recommendations : - Discharge patient to home [Means]. - Repeat colonoscopy in 10 years for screening purposes. - Continue present medications. My findings are described in the full procedure note, which is enclosed. If I can be of further assistance, please feel free to contact me at . Sincerely, Raghavendra Friend, 10/05/2024 1:12:59 PM This report has been signed electronically.
--- NOTE | 2024-10-05 15:15 | PCM.POSTANE2 ---
Anesthesia Postop Eval I Sum Postop Eval Completion status Anesthesia document: Postop Eval 1 completed: Yes Anesthesia Postop Eval I Summary Anesthesia Postop Eval I Summary: Anesthesia Postop Eval I: Assessment Summary Airway patent Yes 10/05/24 13:09 [email or web address] Spontaneous unlabored Yes 10/05/24 13:09 [email or web address] respirations Mental status Asleep 10/05/24 13:09 [email or web address] nausea No 10/05/24 13:09 [email or web address] Vomiting No 10/05/24 13:09 [email or web address] Anesthesia Postop Eval I: Fluid Summary Crystalloid volume administer 500 10/05/24 13:09 [email or web address] (ml) Colloids volume administered ( ml) Blood Product volume administered (ml) Total IV fluid infused 500 10/05/24 13:09 [email or web address] Anesthesia Postop Eval I: Summary Notes Anesthesia Complication No 10/05/24 13:09 [email or web address] Anesthesia Complication Comment: Post-operative progress note Anesthesia: Postop Eval II Evaluation Mental status: Awake and Calm Pain Level: 0 nausea: No Vomiting: No Complications Anesthesia Complication: No
== END 2024-10-05 13:32 | disposition home or self-care (01) ==
LOC: EN 11:14 → AC 11:16
PROVIDERS: PCP Family Medicine; Referring Provider Family Medicine; Visit Provider Internal Medicine Gastroenterology
PROC: 0DJD8ZZ Inspection of Lower Intestinal Tract, Via Natural or Artificial Opening Endoscopic (ICD-10-PCS; CPT 45378; principal; 2024-10-05 12:25)
DX: Z12.11 Encounter for screening for malignant neoplasm of colon (principal); K57.30 Diverticulosis of large intestine without perforation or abscess without bleeding; K21.9 Gastro-esophageal reflux disease without esophagitis; F32.A Depression, unspecified; F41.9 Anxiety disorder, unspecified; F17.210 Nicotine dependence, cigarettes, uncomplicated; Z79.899 Other long term (current) drug therapy
CPT/HCPCS: G0121; J2405

== ENCOUNTER → 2024-12-17 | Outpatient (CLI) | payer MEDICARE, SELFPAY ==
[2024-12-17 10:30] LABS: AST(SGOT) 15 U/L (<=31); Alanine Aminotransfer ALT/SGPT 13 U/L (<=34); Albumin, Serum 4.6 g/dL (3.4-4.8); Alkaline Phosphatase 75 U/L (35-104); Anion Gap 11 (5-15); BUN 16 mg/dL (4-19); BUN/Creat Ratio 20.4 RATIO (10-20); Calcium,Total 9.6 mg/dL (7.6-11.0); Carbon Dioxide 27.5 mmol/L (21.0-32.0); Chloride 101 mmol/L (98-108); Cholesterol 182 mg/dL (<=200); Globulin 2.6 g/dL (2.2-4.2); Glucose 101 mg/dL (70-99); Low Density Lipoprotein Calc. 112 mg/dL; Potassium 4.2 mmol/L (3.3-5.1); Triglycerides 82 mg/dL; Very Low Density Lipoprotein 16 mg/dL (5-40); cholesterol:hdl ratio screen 3.29
== END | disposition home or self-care (01) ==
LOC: MTLAB 07:47
PROVIDERS: PCP Family Medicine; Referring Provider Family Medicine; Visit Provider Family Medicine
DX: E78.5 Hyperlipidemia, unspecified (principal)
CPT/HCPCS: 36415; 80053; 80061

== ENCOUNTER → 2025-01-18 | Outpatient (CLI) | payer MEDICARE, SELFPAY ==
--- NOTE | 2025-01-18 09:58 | RAD_ITS ---
PROCEDURE: CHEST PA AND LATERAL 01/18/2025 REASON FOR EXAM: COUGH TECHNIQUE: Procedure Code: RADCXR Modality: DX Procedure: CHEST PA AND LATERAL COMPARISON: CT chest dated 07/07/2023. FINDINGS: Small calcified granulomas are noted within both lungs. Otherwise the lungs are clear without airspace consolidation or pleural effusion. The cardiac silhouette is normal in size, with mild atherosclerotic calcification of the aortic knob. No acute osseous abnormality. RAD/Chest PA and Lateral IMPRESSION: As above. Reading Location: [id number]
== END | disposition home or self-care (01) ==
LOC: MTRAD 09:58
PROVIDERS: PCP Family Medicine; Referring Provider Physician Assistant; Visit Provider Physician Assistant
DX: R05.9 Cough, unspecified (principal)
CPT/HCPCS: 71046